=== PATIENT | female | born 1960 | race Caucasian/White ===

== ENCOUNTER 2017-05-13 16:27 | Inpatient (IN) | payer OTHER ==
[2017-05-13] VITALS (21 sets, daily range): BP systolic 89–177; BP diastolic 57–103
[~2017-05-13] VITALS: Ht 152.4 cm; Wt 72.6 kg
[~2017-05-13 16:27] MED LIST: ALBU0.0912 IH; BECL0.089 INH; COZ50 PO; GABA300C PO; MULT-298 PO; SPIMDI INH
[2017-05-13] MEDS ORDERED: NALOXONE 0.4 MG/ML VIAL IVP ONE (16:45)
[2017-05-13 17:13] LABS: HEMATOCRIT 37.3 % (36-48); HEMOGLOBIN 11.3 g/dL (12.0-16.0); MEAN CORPUSCULAR HEMOGLOBIN 28 pg (27-31); MEAN CORPUSCULAR HGB CONC 30 g/dL (33-37); MEAN CORPUSCULAR VOLUME 94 fL (80-94); PLATELET COUNT (AUTO) 253 K/uL (140-450); RED BLOOD CELL COUNT(AUTO) 3.98 MIL/uL (4.20-5.40); RED CELL DISTRIBUTION WIDTH 13.9 % (11.6-13.7); WHITE BLOOD COUNT (AUTO) 17.3 K/uL (4.8-10.8)
--- NOTE | 2017-05-13 17:23 | NUR ---
PATIENT CHRISTIANO GUZMANE TO SOB /ALOC;PT IS FROM HOME. POX 81% FIELD 100%NRB POX TO 100%.NON RESPONSIVE ON THE WAY TO [facility] PER COST ACCOUNTING ANALYST.HOME OXYGEN. HX OF EMPHYSEMA.MEDS. METHADONE. ERMD AT BEDSIDE .NO N/V/D; SKIN IS PINK/WARM/DRY;PATIENT POSITIONED FOR COMFORT; HOB ELEVATED; BEDRAILS UP X2; BED DOWN.ALL MONITORS IN PLACED; ER MD MADE AWARE OF PT STATUS.
--- NOTE | 2017-05-13 17:24 | NUR ---
PT O2 SAT DROPS TO 65% ON A NON REBREATHER MASK;BP OF 165/102/;HR 145;DR CHRISTENSEN AT BEDSIDE;
[2017-05-13 17:26] LABS: CREATININE 0.6 mg/dL (0.6-1.3); POTASSIUM 4.6 mmol/L (3.5-5.1)
[2017-05-13 17:29] LABS: ANION GAP 0.8 (8-16)
[2017-05-13 17:32] LABS: ALBUMIN 3.1 g/dL (3.4-5.0); TOTAL BILIRUBIN 0.3 mg/dL (0.0-1.0)
[2017-05-13] MEDS ORDERED: ETOMIDATE 20 MG/10 ML VIAL IVP ONE (17:32)
[2017-05-13] MEDS ORDERED: ROCURONIUM 50 MG/5 ML VIAL IV ONE (17:32)
[2017-05-13] MEDS ORDERED: INTUBATION KIT MC ONE (17:32)
[2017-05-13 17:33] LABS: LIPASE 85 U/L (73-393)
[2017-05-13 17:35] LABS: ACETAMINOPHEN < 0.5 ug/ml (10-30); SALICYLATE < 2.8 mg/dL (2.8-20.0)
[2017-05-13] MEDS ORDERED: methylPREDNISolone SS 125 MG/2 ML VIAL IVP ONE (17:40)
[2017-05-13] MEDS ORDERED: VANCOMYCIN 1GM/DEXT 5% PREMIX 200 ML IV ONE (17:40)
[2017-05-13] MEDS ORDERED: CEFEPIME 2,000 MG in DEXTROSE 5% 100 ML IV ONE (17:40)
[2017-05-13] MEDS ORDERED: VANCOMYCIN PER PHARMACY MC PRN (17:40)
[2017-05-13] MEDS ORDERED: LEVOFLOXACIN 750 MG/D5W PREMIX 150 ML IV ONE (17:40)
[2017-05-13 17:41] LABS: LYMPHOCYTES % (MANUAL) 7 % (20-46); MONOCYTES % (MANUAL) 6 % (5-12)
[2017-05-13] MEDS ORDERED: IPRATROPIUM 0.02% 0.5 MG/2.5 ML NEBU INH ONE ×2 (17:50→18:07)
[2017-05-13] MEDS ORDERED: ALBUTEROL 0.083% 2.5 MG/3 ML NEBU INH ONE ×2 (17:50→18:07)
[2017-05-13 17:56] LABS: CARBON DIOXIDE 57.6 mmol/L (21-32)
--- NOTE | 2017-05-13 17:56 | NUR ---
Rhea fuentes in EDM - 05/16/17 at 0854 by [facility] PT O2 SAT DROPS TO 65% ON A NON REBREATHER MASK;BP OF 165/102/;HR 145;DR CHRISTENSEN AT BEDSIDE;
[2017-05-13] MEDS ORDERED: PROPOFOL 200 MG/20 ML VIAL IV ONE (18:00)
[2017-05-13] MEDS ORDERED: CEFEPIME 2,000 MG VIAL IV ONE (18:00)
--- NOTE | 2017-05-13 18:00 | NUR ---
20 MG ETOMIDATE WAS GIVEN AT 1732 RT H;100 MG ROCORONIUM WAS GIVEN AT 1732 AT RT H;INTUBATION STARTED AT [address] CHRISTENSEN;RT AT BEDSIDE;7.5 TUBE WAS INSERTED AT 23 CM LIP;
--- NOTE | 2017-05-13 18:00 | NUR ---
Rhea fuentes in ED - 05/16/17 at 0853 by [facility] 20 MG ATOMIDATE WAS GIVEN AT 1732 RT H;100 MG ROCONIUM WAS GIVEN AT 1732 AT RT H;INTUBATION STARTED AT [address] CHRISTENSEN;RT AT BEDSIDE;7.5 TUBE WAS INSERTED AT 23 CM LIP;
--- NOTE | 2017-05-13 18:29 | NUR ---
ABG RESULTS GIVEN TO . NEW ORDERS TO INCREASE RATE TO 18.
--- NOTE | 2017-05-13 18:32 | NUR ---
FIO2 TITRATED TO 30%. DR. CHRISTENSEN AWARE OF CHANGES MADE TO VENT PER ABG RESULTS.
[2017-05-13] MEDS ORDERED: PROPOFOL 1000 MG/100 ML PREMIX 100 ML IV ONE (18:41)
[2017-05-13] MEDS ORDERED: ONDANSETRON 4 MG/2 ML VIAL IVP PRN (19:00)
[2017-05-13] MEDS ORDERED: LORazepam 2 MG/ML VIAL IVP PRN (19:00)
[2017-05-13] MEDS ORDERED: ACETAMINOPHEN 325 MG TAB PO PRN (19:00)
--- NOTE | 2017-05-13 19:02 | NUR ---
MANN CATHETER INSERTED BY CHARGE NURSE USING ASEPTIC TECHNIQUE.
[2017-05-13] MEDS ORDERED: cloNIDine 0.1 MG TAB PO PRN (19:10)
--- NOTE | 2017-05-13 19:23 | NUR ---
Patient will be admitted to care of DR WOOD. Admited to ICU. Will go to room 5. Belongings list completed. Report to RAYMOND GRIFFIN.
[2017-05-13] MEDS ORDERED: METH-1625 PO (19:30)
[2017-05-13] MEDS: PROPOFOL 1000 MG/100 ML PREMIX 100 ML IV SCH ×2 (19:32→23:52)
[2017-05-13] MEDS ORDERED: NACL 0.9% 2,500 ML IV ONE (19:50)
--- NOTE | 2017-05-13 19:56 | NUR ---
Pt transferred to ICU via [place] on cardiac monitoring accompanied by RN Kasia, RN Ajay, RN Murray, EMT Roberta RT.
[2017-05-13] MEDS: NACL 0.9% 1,000 ML IV SCH (20:00)
--- NOTE | 2017-05-13 20:00 | NUR ---
RECEIVED PT FROM ER VIA GURNEY, PT IS SEDATED, RASS -2, TRYING TO PULL OUT THE TUBE. TRACH TO VENT WITH FIO2 45, RR 18, TV 450, PEEP 5, WHEEZING LUNG SOUNDS, ST ON CHEF'S ASSISTANT. SOFT ABDOMEN WITH ACTIVE BOWEL SOUNDS, NGT TO LEFT NARES, POSITIVE PLACEMENT WITH [address]UALS. MANN CATHETER IN PLACE WITH CLEAR YELLOW URINE, ABLE TO MOVE ALL EXTREMITIES, GENERALIZED WEAKNESS NOTED. PERIPHERAL LINE TO RIGHT AC, 20GA, AND LEFT HAND, 22GA, WITH GOOD BLOOD RETURN, SKIN IS WARM AND DRY TO TOUCH, BLE SCAB NOTED. VSS, FLACC 6, SAFETY PRECAUTION IN PLACE, HOB ELEVATED TO 30 DEGREES, SCD PLACED ON BLE, WILL CONTINUE TO MONITOR.
[2017-05-13 20:23] LABS: APPEARANCE,URINE CLEAR (CLEAR); BILIRUBIN,URINE NEGATIVE (NEGATIVE); BLOOD, URINE 2+ (NEGATIVE); LEUKOCYTE ESTERASE ,URINE NEGATIVE (NEGATIVE); NITRITE, URINE NEGATIVE (NEGATIVE); UGLUCOSE NEGATIVE (NEGATIVE)
[2017-05-13 20:24] LABS: COLOR,URINE STRAW (YELLOW)
[2017-05-13 20:29] LABS: RBC,URINE 20-50 /HPF (0-5); WBC,URINE 0-5 (RARE) /HPF (0-5)
[2017-05-13 20:30] LABS: BARBITURATE, URINE NEG. ng/ml (NEG <=200); BENZODIAZEPINE, URINE NEG. ng/mL (NEG <=200); CANNABINOID, URINE NEG. ng/mL (NEG <=50); COCAINE, URINE NEG. ng/mL (NEG <=300); OPIATE, URINE POS. ng/mL (NEG <=2000); PHENCYCLIDINE SCREEN,URINE NEG. ng/mL (NEG <=25)
[2017-05-13] MEDS: ALBUTEROL SULFATE/IPRATROPIU 3 ML SOL IH SCH ×2 (20:40→23:51)
[2017-05-13] MEDS: HYDROmorphone 1 MG/ML AMP IVP PRN (21:01)
--- NOTE | 2017-05-13 21:45 | NUR ---
PHARMACY CALLED REGARDING NO IV ATIVAN MEDICATION AVAILABLE AT THIS TIME, NEED TO CHANGE ORDER. DR. WOOD PAGED, WAITING FOR CALL BACK.
--- NOTE | 2017-05-13 22:00 | NUR ---
PT IS STILL SEDATED, RASS -4, NO S/S OF DISTRESS, VSS, POSITION CHANGED FOR OFF LOAD PRESSURE.
--- NOTE | 2017-05-13 23:40 | NUR ---
PAGED DR. WOOD AGAIN REGARDING ORDERS, WAITING FOR CALLING BACK.
[2017-05-14] VITALS (103 sets, daily range): BP systolic 56–156; BP diastolic 53–98
--- NOTE | 2017-05-14 | NUR ---
NO CHANGE OF CONDITION AT THIS TIME, VSS. POSITION CHANGED FOR OFF LOAD PRESSURE.
--- NOTE | 2017-05-14 02:00 | NUR ---
NO S/S OF DISTRESS, VSS, STILL SEDATED, RASS -4. POSITION CHANGED FOR OFF LOAD PRESSURE.
[2017-05-14] MEDS: ALBUTEROL SULFATE/IPRATROPIU 3 ML SOL IH SCH ×5 (03:28→20:06)
[2017-05-14] MEDS: PROPOFOL 1000 MG/100 ML PREMIX 100 ML IV SCH ×6 (04:14→22:16)
--- NOTE | 2017-05-14 04:15 | NUR ---
PT IS SEDATED, RASS -4, PREPARING PT TO CT, PT STARTED AGITATED, TRYING TO PULL OUT THE TUBE, NOT ABLE TO DO CT SCAN AT THIS TIME, WILL ENDORSE TO MORNING SHIFT TO TAKE PT TO CT WHEN PT IS MORE STABLE.
--- NOTE | 2017-05-14 05:00 | NUR ---
PT IS MORE STABLE, RASS -4, VSS, TRANSFERRED TO CT. WITH RN AND RT AT BEDSIDE.
[2017-05-14 05:08] LABS: BASOPHILS % (AUTO) 0.3 % (0.0-2.0); EOSINOPHILS % (AUTO) 0.1 % (0.0-4.0); HEMATOCRIT 31.2 % (36-48); HEMOGLOBIN 9.5 g/dL (12.0-16.0); LYMPHOCYTES # (AUTO) 0.4 K/uL (2.5-16.5); LYMPHOCYTES % (AUTO) 3.8 % (20.5-51.1); MEAN CORPUSCULAR HEMOGLOBIN 28 pg (27-31); MEAN CORPUSCULAR HGB CONC 31 g/dL (33-37); MEAN CORPUSCULAR VOLUME 93 fL (80-94); MONOCYTES # (AUTO) 0.4 K/uL (0.8-1.0); MONOCYTES % (AUTO) 3.9 % (1.7-9.3); NEUTROPHILS # (AUTO) 9.7 K/uL (1.8-7.7); PLATELET COUNT (AUTO) 201 K/uL (140-450); RED BLOOD CELL COUNT(AUTO) 3.36 MIL/uL (4.20-5.40); RED CELL DISTRIBUTION WIDTH 13.4 % (11.6-13.7); WHITE BLOOD COUNT (AUTO) 10.5 K/uL (4.8-10.8)
[2017-05-14 05:24] LABS: CREATININE 0.6 mg/dL (0.6-1.3); POTASSIUM 3.4 mmol/L (3.5-5.1)
[2017-05-14 05:35] LABS: NEUTROPHILS % (AUTO) 91.9 % (42.2-75.2)
--- NOTE | 2017-05-14 05:45 | NUR ---
PT IS BACK UNIT FROM CT.
[2017-05-14 05:53] LABS: ANION GAP -1.3 (8-16)
[2017-05-14 05:54] LABS: CARBON DIOXIDE 49.7 mmol/L (21-32)
--- NOTE | 2017-05-14 06:00 | NUR ---
AM CARE AND F/C CARE PROVIDED, ORAL CARE PROVIDED, POSITION CHANGED FOR OFF LOAD PRESSURE, VSS.
--- NOTE | 2017-05-14 07:08 | NUR ---
RCV'D PT ON MECHANICAL VENTILATION. PT IS INTUBATED WITH 7.5 ETT AT 24 CM AT LIP. VENT SETTINGS ARE AC18,450,40%,+5. TUBE IS MIDLINE AND SECURED. VENT IS CONNECTED TO RED OUTLET ALARMS ARE AUDIBLE AND WORKING PROPERLY. AMBU BAG AT BEDSIDE. HHN TX OF DUONEB IS GIVEN. NO DISTRESS NOTED. WILL CONTINUE TO MONITOR.
--- NOTE | 2017-05-14 07:15 | NUR ---
REPORT GIVEN TO ADRIA RN AT BEDSIDE FOR CONTINUE OF CARE, PT IS IN STABLE CONDITION AT THIS TIME.
--- NOTE | 2017-05-14 07:18 | NUR ---
RECEIVED A REPORT FROM GABY RIVAS. PT CLOSED EYES, UNRESPONSIVE TO VOICE. SEDATED WITH PROPOFOL DRIP ORDERED PER PROTOCOL. ETT TO VENT AND SETTING AT FiO2 40, TV 450 , RR 18, PEEP 5. ST ON THE MONITOR. FLACC 0 AND NO S/SX OF ACUTE RESPIRATORY DISTRESS NOTED. SKIN WARM TO TOUCH AND DRY WITH DRY SCABS TO BILATERAL LOWER EXTREMITY. NGT IN PLACE WITH NUTREN PULMONARY FEEDING @ 30ML/HR. MANN CATHETER DRAINING CLEAR LISA URINE. PERIPHERAL IV LINE ON RT AC #20G AND LT HAND 22G, PATENT AND INTACT. SAFETY PRECAUTION, BED IN LOW POSITION, CALL LIGHT WITHIN REACH. WILL CONTINUE TO MONITOR. RT AT BEDSIDE.
--- NOTE | 2017-05-14 07:20 | NUR ---
PINO, SISTER OF THE PT CALLED AND GIVEN AN UPDATED OF PT'S CONDITION. PER PINO, SHE IS NOT SURE IF PT'S FLU SHOT IS UP TO DATE AND WILL FOLLOW UP WITH HER PCP ON NEXT TUESDAY.AND FOR NOW HOLD ON TO GIVE IT.
--- NOTE | 2017-05-14 07:43 | NUR ---
PAGED DR. MAR REGARDING CLARIFICATION OF ADMISSION ORDERS AND WAITING FOR CALLBACK.
--- NOTE | 2017-05-14 07:48 | NUR ---
DR. MAR CALLED BACK AND WILL FOLLOW UP ON ORDERS.
--- NOTE | 2017-05-14 08:00 | NUR ---
AGATHA, ROOMMATE AT BEDSIDE AND TAKEN ALL BELONGINGS TO HOME.
--- NOTE | 2017-05-14 08:10 | NUR ---
ABG DONE WITH NO INCIDENT. PAGED DR BROWN FOR CRITICAL VALUES. SPOKE WITH WILL CALL ORDER CLERK CRISTIANA. WAITING FOR CALL BACK.
--- NOTE | 2017-05-14 08:34 | NUR ---
GOT CALL BACK FROM DR BROWN AND GAVE ABG RESULTS. NO CHANGE OF ORDERS.
--- NOTE | 2017-05-14 08:34 | NUR ---
NOTIFIED DR. MAR OF LOW POTASSIUM: 3.4, NEW ORDERS RECEIVED.
[2017-05-14] MEDS ORDERED: POTASSIUM CHLORIDE 20% 40 MEQ/15 ML UDC NG SCH (08:35)
[2017-05-14] MEDS: PANTOPRAZOLE 40 MG INJ VIAL IVP SCH (08:57)
[2017-05-14] MEDS: LEVOFLOXACIN 500 MG/D5W PREMIX 100 ML IV SCH (08:58)
[2017-05-14] MEDS ORDERED: LOSARTAN 50 MG TAB PO SCH (09:00)
--- NOTE | 2017-05-14 09:00 | NUR ---
DURING INITIAL SHIFT SKIN ASSESSMENT, PT NOTED WITH DRY OPEN SKIN TEAR TO LT UPPER ARM. PICTURE TAKEN AND APPLIED DRY DRESSING. WILL CONTINUE TO MONITOR.
--- NOTE | 2017-05-14 09:38 | NUR ---
PATIENT HAS BEEN SCREENED AND CATEGORIZED HIGH NUTRITION RISK. PATIENT WILL BE SEEN WITHIN 1-2 DAYS OF ADMISSION. 05/14/17-05/15/[address]
--- NOTE | 2017-05-14 09:40 | NUR ---
PT TOLERATED MEDICATIONS WELL. TEMP 99.0 AND APPLIED COOLING MEASURES.
--- NOTE | 2017-05-14 10:20 | NUR ---
TEMP 97.6 NOTED AND VITAL SIGN STABLE. FLACC 0. WILL CONTINUE TO MONITOR
--- NOTE | 2017-05-14 10:40 | NUR ---
PT IS AWAKE AND ATTEMPTING TO PULL OUT ETT. TITRATED PROPOFOL TO 75MCG/MIN PROTOCOL AND VERSED IV GIVEN PRN ORDERED. APPLIED BILATERAL MITTENS AT THIS TIME. WILL CONTINUE TO MONITOR CLOSELY.
--- NOTE | 2017-05-14 10:58 | NUR ---
DR. MAR IN TO SEE PT AND WILL FOLLOW UP ON ORDERS.
[2017-05-14] MEDS ORDERED: ENOXAPARIN 30 MG/0.3 ML SYR SUBQ SCH (11:05)
[2017-05-14] MEDS ORDERED: clonazePAM 0.5 MG TAB NG SCH (11:10)
[2017-05-14] MEDS ORDERED: METHADONE 10 MG TAB NG SCH (11:15)
--- NOTE | 2017-05-14 11:17 | NUR ---
CONTINUE ON RASS SCALE -[address] MAR, KLONOPIN 1MG GIVEN VIA NGT ORDERED FOR AGITATION AND CONTINUE SAME RATE OF PROPOFOL 80MCG/MIN AT THIS TIME. WILL CONTINUE TO MONITOR CLOSELY.
--- NOTE | 2017-05-14 11:35 | NUR ---
HOLD FEEDING FOR ULTRASOUND OF LIVER TODAY. WILL CONTINUE TO MONITOR.
--- NOTE | 2017-05-14 11:39 | NUR ---
INFORMED BY PHARMACY THAT WE NEED CONFIRMATION AT PT'S CLINIC THAT SHE WAS TAKING METHADONE PRIOR TO ADMISSION. CALLED PT'S SISTER, PINO, FOR INFORMATION. NO ANSWER, LEFT MESSAGE. WILL FOLLOW UP.
[2017-05-14] MEDS: VANCOMYCIN 1GM/DEXT 5% PREMIX 200 ML IV SCH (11:47)
--- NOTE | 2017-05-14 12:22 | NUR ---
PINO, SISTER OF THE PT AT BEDSIDE AND GIVEN AN UPDATE OF PT'S CONDITION. PER SISTER, PT HAS BEEN TAKING METHADONE 75MG FOR 27YEARS DAILY AND WILL FOLLOW UP WITH CLINIC INFORMATION AND LET US KNOW.
--- NOTE | 2017-05-14 12:35 | NUR ---
OBTAINED THE CLINIC INFORMATION FROM PINO, SISTER OF THE PT. [facility] [phone]. CALLED THE CLINIC AND XRAY TECH STATED THAT THEY ARE OPEN FROM TUESDAY TILL TUESDAY AND UNABLE TO ACCESS THE PT'S INFORMATION AT THIS TIME. PAGED DR. MAR AND WAITING FOR CALLBACK.
--- NOTE | 2017-05-14 13:02 | NUR ---
RECEIVED CALLBACK FROM DR. MAR. NOTIFIED HIM THAT WE ARE UNABLE TO OBTAIN METHADONE VERIFICATION FROM THE PT'S CLINIC AT THIS TIME.
--- NOTE | 2017-05-14 13:27 | NUR ---
02/12/17 RD INITIAL ASSESSMENT COMPLETED PLEASE REFER TO NUTRITION ASSESSMENT UNDER CARE ACTIVITY FOR ESTIMATED NUTRITIONAL NEEDS. RD RECOMMENDATIONS: 1. RECOMMEND INCREASING NUTREN PULMONARY TO GOAL RATE OF 45 ML/HR WITH 150 ML OF FREE WATER FLUSH Q6H. -ADEQUATE TO MEET ~91% OF ESTIMATED KCAL NEEDS AND ~96% OF ESTIMATED PROTEIN NEEDS. -NOTE PT IS ALSO ON PROPOFOL (CURRENT RATE OF 27.89 X 24 HOURS X 1.1 KCAL = ~734 KCAL/DAY-RD WILL MONITOR AND RECOMMEND TF APPROPRIATELY) 2. CONSIDER ORDERING AND MONITORING LABS FOR LIPASE, AMYLASE, AND LIPID PANELS D/T PT ON PROPOFOL AT HIGH RATE. 3. RD WILL F/U 2-3 DAYS; HIGH RISK. KASHIF RASMUSSEN, RD
[2017-05-14] MEDS: MIDAZOLAM 2 MG/2 ML VIAL IV PRN ×2 (14:24→14:45)
--- NOTE | 2017-05-14 14:24 | NUR ---
RASS -3 AND VERSED GIVEN PRN ORDERED. WILL CONTINUE TO MONITOR CLOSELY. SISTER OF THE PT IS AT BEDSIDE.
--- NOTE | 2017-05-14 14:32 | NUR ---
ARCADIO, DAUGHTER OF THE PT AT BEDSIDE AND GIVEN AN UPDATE OF PT'S CONDITION.
--- NOTE | 2017-05-14 14:40 | NUR ---
LATE ENTRY OF ADMINISTRATION OF VERSED IVP GIVEN AT 1040.
--- NOTE | 2017-05-14 15:32 | NUR ---
PT CALM AND STABLE. NO CHANGE OF PROPOFOL RATE AND RASS -4. FLACC 0 AND NO S/SX OF ACUTE RESPIRATORY DISTRESS NOTED. WILL CONTINUE TO MONITOR.
[2017-05-14] MEDS: NACL 0.9% 1,000 ML IV SCH (17:41)
--- NOTE | 2017-05-14 17:44 | NUR ---
PT SEDATED AND RASS -4 NOTED. VITAL SIGN STABLE AND FLACC 0. CONTINUE ON HOLD FEEDING FOR ULTRASOUND OF LIVER AND NO S/SX OF DEHYDRATION AT THIS TIME. WILL CONTINUE TO MONITOR.
--- NOTE | 2017-05-14 17:51 | NUR ---
PAGED DR. MAR REGARDING RD RECOMMENDATION AND WAITING FOR CALLBACK.
--- NOTE | 2017-05-14 17:54 | NUR ---
RECEIVED CALLBACK FROM DR. MAR AND OBTAINED THE ORDERS FOR RD RECOMMENDATION. WILL FOLLOW UP ON ORDERS.
--- NOTE | 2017-05-14 18:30 | NUR ---
STILL WAITING FOR FACTORY MANAGER FOR ULTRASOUND OF LIVER AND CALLED RADIOLOGY DEPT TO FOLLOW UP. THEY AWARE OF IT.
--- NOTE | 2017-05-14 18:50 | NUR ---
FAIRING WORKER AT BEDSIDE FOR ULTRASOUND OF LIVER.
--- NOTE | 2017-05-14 19:15 | NUR ---
REPORT GIVEN AND ENDORSED CARE TO GABY WARNER. PT STABLE
--- NOTE | 2017-05-14 19:20 | NUR ---
RECEIVED PT FROM ADRIA RN AM SHIFT, PT IS SEDATED WITH RASS -4. PT IS INTUBATED. ETT TO VENT. ETT SIZE NO 7.5. VENT SETTING AC 18,TV 450,FIO2 40 AND PEEP 5. BILATERAL LUNGS SOUND CLEAR. SINUS TACHY ON THE MONITOR. CONT ON MONITORING. IV SITE RIGHT AC NO 20 GAUGE WITH PROPOFOL RUNNING AT 80 MCG/MIN AND IV TO RIGHT HAND NO 22 GAUGE WITH IVF NS AT 50 CC/HR. BOTH IV SITE INTACT WELL. NO S/S OF INFECTION NOTED. NTG TO LEFT NARES,NO RESIDUAL NOTED, PLACEMENT CONFIRM. NGT TO TUBE FEEDING NUTREN PULMONARY AT 45 CC/HR AND H2O AT 120 CC Q 6 HRS. HOB UP 30 -45 DEGREE.POSITIVE BOWEL SOUNDS TO ALL QUADRANTS.ABD SOFT NON DISTENDED. SKIN NON INTACT WITH SKIN TEAR TO LEFT UPPER ARM COVER WITH DRY CLEAN DRESSING AND DRY SCABS TO BLE. NO EDEMA NOTED. F/C IN PLACE WITH YELLOW CLEAR URINE DRAIN BY GRAVITY. SCD IN PLACE. KEPT CLEAN AND DRY.
--- NOTE | 2017-05-14 19:40 | NUR ---
LIVE ULTRA SOUND DONE RESULT STILL PENDING
--- NOTE | 2017-05-14 20:15 | NUR ---
RECEIVED PT IN THE SAME VENT SETTINGS, SX SMALL CLEAR, BS ARE BILT CLEAR,NO DISTRESS
[2017-05-14] MEDS: clonazePAM 0.5 MG TAB NG SCH (20:20)
[2017-05-14] MEDS: RIFAXIMIN 550 MG TAB PO SCH (20:20)
[2017-05-14] MEDS: LACTULOSE 20 GM/30 ML UDC PO SCH (20:21)
--- NOTE | 2017-05-14 20:26 | NUR ---
DR. SWANN INFORMED ABOUT ULTRASOUND LIVER RESULTS: HEPATOMEGALY AND FATTY INFILTRATED LIVER, SMALL GALLBLADDER SLUDGE, SMALL RIGHT RENAL CYST. ORDERED LFT IN AM. MACHO/RESPIRATORY THERAPIST SPOKE WITH DR. MAR REGARDING PATIENT'S BREATHING TREATMENT ORDER, MD ORDERED CHANGE DUONEB IH TO Q6H.
--- NOTE | 2017-05-14 20:40 | NUR ---
NIGHT MEDICATION GIVEN VIA NGT TOLERATED WELL.NO RESIDUAL NOTED.HOB UP 30 DEGREE.KEPT CLEAN AND DRY.
--- NOTE | 2017-05-14 21:15 | NUR ---
DECREASE PROPOFOL AT 75 MCG/KG/MIN TOLERATED WELL RASS -4.
--- NOTE | 2017-05-14 22:00 | NUR ---
DECREASE PROPOFOL TO 70 MCG/KG/MIN TOLERATED WELL TO KEPT RASS-4.
--- NOTE | 2017-05-14 23:30 | NUR ---
PROPOFOL DECREASE TO 65MCG/KG/MIN TO KEPT RASS-4 TOLERAED WELL AT THIS TIME.CONTINUE TO MONITOR CLOSELY.
[2017-05-15] VITALS (96 sets, daily range): BP systolic 69–116; BP diastolic 46–74
--- NOTE | 2017-05-15 00:17 | NUR ---
VAP ORAL CARE GIVEN. REPOSITION PT FOR COMFORT. HOB UP 30 DEGREE.KEPT CLEAN AND DRY.
--- NOTE | 2017-05-15 00:40 | NUR ---
PROPOFOL DECREASE TO 60 MCG/KG/HR TO KEEP RASS-4.
--- NOTE | 2017-05-15 02:00 | NUR ---
PROPOFOL DECREASE TO 55 MCG/KG/HR TOLERATED WELL TO KEEP RASS-4.
[2017-05-15] MEDS: PROPOFOL 1000 MG/100 ML PREMIX 100 ML IV SCH ×2 (02:39→08:00)
--- NOTE | 2017-05-15 03:55 | NUR ---
PT MONITOR ON THE SAME VENT SETTINGS, NO CHANGES MADE, PT STABLE AT THIS TIME
--- NOTE | 2017-05-15 05:00 | NUR ---
AM CARE,VAP ORAL CARE AND F/C CARE GIVEN TOLERATED WELL.
--- NOTE | 2017-05-15 06:09 | NUR ---
IV SITE ON RIGHT ANTECUBITAL AREA INFILTRATED, STARTED NEW IV SITE ON RIGHT LFA G#22.
[2017-05-15 06:12] LABS: CREATININE 0.7 mg/dL (0.6-1.3)
[2017-05-15 06:15] LABS: ALBUMIN 2.3 g/dL (3.4-5.0); BILIRUBIN,DIRECT 0.1 mg/dL (0.0-0.3); TOTAL BILIRUBIN 0.3 mg/dL (0.0-1.0)
[2017-05-15 06:18] LABS: BASOPHILS # (AUTO) 0.5 K/uL (0.00-0.22); EOSINOPHILS # (AUTO) 0.1 K/uL (0-0.4); EOSINOPHILS % (AUTO) 0.6 % (0.0-4.0); HEMATOCRIT 33.2 % (36-48); HEMOGLOBIN 10.6 g/dL (12.0-16.0); LYMPHOCYTES # (AUTO) 1.2 K/uL (2.5-16.5); LYMPHOCYTES % (AUTO) 10.1 % (20.5-51.1); MEAN CORPUSCULAR HEMOGLOBIN 30 pg (27-31); MEAN CORPUSCULAR HGB CONC 32 g/dL (33-37); MEAN CORPUSCULAR VOLUME 93 fL (80-94); MONOCYTES % (AUTO) 8.1 % (1.7-9.3); NEUTROPHILS # (AUTO) 9.4 K/uL (1.8-7.7); NEUTROPHILS % (AUTO) 77.2 % (42.2-75.2); PLATELET COUNT (AUTO) 204 K/uL (140-450); RED BLOOD CELL COUNT(AUTO) 3.58 MIL/uL (4.20-5.40); RED CELL DISTRIBUTION WIDTH 14.4 % (11.6-13.7); WHITE BLOOD COUNT (AUTO) 12.2 K/uL (4.8-10.8)
[2017-05-15 06:23] LABS: ANION GAP 1.4 (8-16)
[2017-05-15 06:24] LABS: CARBON DIOXIDE 44.6 mmol/L (21-32)
--- NOTE | 2017-05-15 06:30 | NUR ---
PROPOFOL DECREASE PER PROTOCOL D/T BP IS LOW.
--- NOTE | 2017-05-15 07:15 | NUR ---
REPORT GIVEN TO AM SHIFT. PT STILL ON PROPOFOL DRIPS ORDER. PROPOFOL WAS DECREASE D/T BP IS LOW.NO RESP DISTRESS.NO SOB. CONT TO MONITOR.
--- NOTE | 2017-05-15 07:30 | NUR ---
RECEIVED REPORT FROM NIGHT NURSE. PT IS SEDATED, RASS -4 AT THIS TIME. FLACC 0. NORMAL SINUS RHYTHM ON MONITOR. PT IS ETT TO VENT: AV 18, FIO2 40%, TV 450, PEEP 5. BILATERAL LUNGS CLEAR UPON AUSCULTATION. PERIPHERAL IV SITE TO RIGHT FOREARM PATENT AND INTACT, RUNNING PROPOFOL AT 40 MCG/MIN AND ANOTHER PERIPHERAL IV TO RIGHT HAND, RUNNING ORDERED IV FLUID. NG TUBE TO LEFT NOSTRIL IN PLACE, RECEIVING TUBE FEEDING OF NUTREN PULMONARY AT 45 ML/HR, NO RESIDUALS NOTED. ABDOMEN SOFT, NONTENDER, BOWEL SOUNDS PRESENT. MANN CATH IN PLACE, DRAINING URINE TO GRAVITY DRAINAGE BAG. SCDS IN PLACE FOR VTE PROPHYLAXIS. HOB AT 30 DEGREES. BED IN LOW POSITION. WILL CONTINUE TO MONITOR.
[2017-05-15 08:04] LABS: CHOL/HDL RATIO 3.8 (1-4.5)
[2017-05-15] MEDS: LACTULOSE 20 GM/30 ML UDC PO SCH ×2 (08:23→20:34)
[2017-05-15] MEDS: PANTOPRAZOLE 40 MG INJ VIAL IVP SCH (08:23)
[2017-05-15] MEDS: clonazePAM 0.5 MG TAB NG SCH (08:25)
[2017-05-15] MEDS: ENOXAPARIN 30 MG/0.3 ML SYR SUBQ SCH (08:25)
[2017-05-15] MEDS: RIFAXIMIN 550 MG TAB PO SCH ×2 (08:25→20:34)
[2017-05-15] MEDS: LEVOFLOXACIN 500 MG/D5W PREMIX 100 ML IV SCH (08:26)
[2017-05-15] MEDS: ALBUTEROL SULFATE/IPRATROPIU 3 ML SOL IH SCH ×3 (08:26→19:28)
[2017-05-15] MEDS: BUDESONIDE 0.5 MG/2 ML NEBU INH SCH ×2 (08:26→19:28)
--- NOTE | 2017-05-15 08:27 | NUR ---
RECEIVED ON A GE [employer] R860 VENTILAOTR PLUGGED INTO RED OUTLET TOLERATING WELL WITHOUT ADVERSE REACTIONS NOTED TO A PORTEX ENDOTRACHEAL TUBE #7.5 SECURED AT 24cm WITH AN ANCHOR FAST CUFF PRESSURE CHECKED NOTED AMBU BAG AT [facility] LOC SEDATED BREATH SOUND RALES BILATERAL WITH GOOD CHEST RISE ENDOTRACHEAL SUCTION FOR MODERATE THIN YELLOW SECRETIONS AIRWAY PATENT
--- NOTE | 2017-05-15 09:00 | NUR ---
MEDICATIONS ADMINISTERED. PT TOLERATED WELL. HELD COZAAR FOR LOW BP.
--- NOTE | 2017-05-15 09:17 | NUR ---
DR. SWANN CAME TO SEE PT. WILL FOLLOW UP ON ORDERS.
--- NOTE | 2017-05-15 09:25 | NUR ---
PLANT TECHNICIAN/CONTROL ROOM OPERATOR CALLED TO BEDSIDE FOR VENTILATOR ALARMS PRESENTING WITH DECREASED VE MVE APNEA PATIENT ASSESSMENT DONE BREATH SOUNDS DECREASED BILATERAL NO EVIDENCE OF PULMONARY PLUG CALLED Terence VARGAS RCP FOR ASSIST UNABLE TO RESOLVE ALARMS REMOVED PATIENT FROM VENTILATOR AMBU BAG WITH SUPPLEMENTAL OXYGEN AT 15 LPM QUICK EST PERFORMED VENTILATOR PRESENTING WITH MULTI SYSTEM FAILURE REPLACED VENTILATOR RECONNECTED TO [employer] [facility] CLINIC[facility] R860 VENTILATOR ID# [id number]
[2017-05-15] MEDS: MIDODRINE 5 MG TAB PO SCH ×4 (09:31→23:13)
[2017-05-15] MEDS: NACL 0.9% 1,000 ML IV SCH ×3 (09:32→23:05)
--- NOTE | 2017-05-15 09:35 | NUR ---
CHECKED BP: 76/38, ADMINISTERED PROAMATINE ORDERED. PT TOLERATED WELL.
--- NOTE | 2017-05-15 09:40 | NUR ---
TOLERATING VENTILATOR SUPPORT WELL BREATH SOUNDS RHONCHI BILATERAL WITH GOOD CHEST RISE ENDOTRACHEAL SUCTION FOR MODERATE THICK YELLOW SECRETIONS AIRWAY PATENT
--- NOTE | 2017-05-15 10:35 | NUR ---
CHECKED ON PT. CURRENT BP 81/59 (MAP 68). RASS -4. NO SIGNS OF ACUTE DISTRESS NOTED AT THIS TIME. WILL CONTINUE TO MONITOR.
--- NOTE | 2017-05-15 11:04 | NUR ---
RECHECKED AND BP IS 100/67. RASS -4. NO S/SX OF ACUTE DISTRESS. WILL CONTINUE TO MONITOR.
--- NOTE | 2017-05-15 11:25 | NUR ---
SEDATED RESPONSIVE TO SUCTIONING BREATH SOUNDS RHONCHI BILATERAL GOOD CHEST RISE ENDOTRACHEAL SUCTION FOR LARGE THICK YELLOW SECRETIONS AIRWAY PATENT OROPHARYNX SUCTION FOR LARGE THICK CLEAR SECRETIONS
[2017-05-15] MEDS: VANCOMYCIN 1GM/DEXT 5% PREMIX 200 ML IV SCH (11:37)
--- NOTE | 2017-05-15 12:32 | NUR ---
REPOSITIONED AND GAVE ORAL CARE. PT TOLERATED WELL. RASS -4. VS STABLE. SAFETY MEASURES ENSURED. WILL CONTINUE TO MONITOR.
--- NOTE | 2017-05-15 13:09 | NUR ---
SEDATED RESTING WELL BREATH SOUNDS RALES BILATERAL GOOD CHEST RISE ENDOTRACHEAL SUCTION FOR SMALL THIN YELLOW SECRETIONS AIRWAY PATENT SATURATION 99% ON FIO2 OF 40% POST HHN THERAPY TITRATED FIO2 TO 35% MIMIANA/RN NOTIFIED
--- NOTE | 2017-05-15 14:20 | NUR ---
DR. MAR MADE AWARE THAT PT IS STILL SEDATED, RASS -4, DESPITE PROPOFOL BEING DECREASED TO 5 MCG/KG/MIN. RECEIVED NEW ORDERS.
--- NOTE | 2017-05-15 15:34 | NUR ---
SEDATED RESTING WELL NO APPARENT RESPIRATORY DISTRESS NOTED BREATH SOUNDS RHONCHI BILATERAL WITH GOOD CHEST RISE ENDOTRACHEAL SUCTION FOR MODERATE THICK YELLOW SECRETIONS AIRWAY PATENT
--- NOTE | 2017-05-15 16:23 | NUR ---
PT'S SISTER, PINO, CALLED AND WAS UPDATED ON PT.
--- NOTE | 2017-05-15 17:03 | NUR ---
ABHILASH, PT'S ROOMMATE AT BEDSIDE AND WAS UPDATED ON PT.
[2017-05-15] MEDS: MIDAZOLAM 2 MG/2 ML VIAL IV PRN (17:36)
--- NOTE | 2017-05-15 17:40 | NUR ---
SEDATED IRRITATED BREATH SOUNDS RHONCHI BILATERAL GOOD CHEST RISE ENDOTRACHEAL SUCTION FOR MODERATE THICK YELLOW SECRETIONS AIRWAY PATENT OROPHARYNX SUCTION FOR COPIOUS THICK CLEAR SECRETIONS
--- NOTE | 2017-05-15 17:40 | NUR ---
PT STARTED TO WAKE UP AND BECOMES AGITATED. RASS +2. VERSED GIVEN ORDERED. PAGED DR. MAR. SPOKE WITH ON-CALL MD DR. WOOD. ORDER RECEIVED. VS STABLE. WILL CONTINUE TO MONITOR.
[2017-05-15] MEDS: PROPOFOL 1000 MG/100 ML PREMIX 100 ML IV PRN (17:53)
--- NOTE | 2017-05-15 18:22 | NUR ---
CHECKED ON PT. PT IS RESTING COMFORTABLY. RASS -4. VS STABLE. NO SOB OR OTHER SIGNS OF ACUTE DISTRESS NOTED. WILL CONTINUE TO MONITOR.
--- NOTE | 2017-05-15 19:20 | NUR ---
REPORT RECEIVED FROM MORNING NURSE, GABY MAGALLON. PT IS ON PROPOFOL @ 5 MCG/KG/MIN WITH RASS -4. PERRL. NGT TO LEFT NARE TO FEEDING. PATENT AND RESIDUAL NOTED 10ML. ETT TO VENT @ AC 18. FIO2 35, TV 450, PEEP 5. ON CARDIAC MONITORING WITH SR. IV TO RFA 22G, R HAND 22G. ALL PATENT AND ASYMPTOMATIC. BILATERAL LUNG SOUNDS DIMINISHED. S1 AND S2 HEARD. BOWEL SOUNDS ACTIVE FROM ALL 4 QUADS. SCD TO THE BILATERAL LOWER EXTREMITIES. SCABS NOTED TO BLE. MANN CATHETER DRAINING CLEAR YELLOW URINE VIA GRAVITY. FLACC=0. DRESSING CLEAN AND DRY TO LEFT UPPER ARM FOR SKIN TEAR. CALL LIGHT IN REACH. BED TO THE LOWEST POSITION. HOB ELEVATED TO 30 DEGREES. WILL CONTINUE TO MONITOR.
--- NOTE | 2017-05-15 19:30 | NUR ---
REPORT GIVEN TO RECREATION FACILITY ATTENDANT RN FOR CONTINUITY OF CARE. PT IS IN STABLE CONDITION.
--- NOTE | 2017-05-15 20:20 | NUR ---
NOTED RASS +1. INCREASED PROPOFOL TO 10 MCG/KG/MIN.
--- NOTE | 2017-05-15 20:30 | NUR ---
RASS -4 AT THIS TIME.
[2017-05-15] MEDS: HYDROmorphone 1 MG/ML AMP IVP PRN (20:34)
--- NOTE | 2017-05-15 22:55 | NUR ---
NOTED RASS 0. INCREASED PROPOFOL TO 15 MCG/KG/MIN.
--- NOTE | 2017-05-15 23:00 | NUR ---
RASS MET -4 AT THIS TIME.
--- NOTE | 2017-05-15 23:15 | NUR ---
RASS NOTED +1. INCREASED PROPOFOL TO 20 MCG/KG/MIN.
--- NOTE | 2017-05-15 23:30 | NUR ---
RASS SCORE MET WITH -4 AT THIS TIME.
[2017-05-16] VITALS (91 sets, daily range): BP systolic 86–140; BP diastolic 57–89
--- NOTE | 2017-05-16 01:20 | NUR ---
RASS NOTED +1. INCREASED PROPOFOL TO 25 MCG/KG/MIN.
--- NOTE | 2017-05-16 01:20 | NUR ---
RASS NOTED TO BE +1. INCREASED PROPOFOL TO 25 MCG/KG/MIN.
--- NOTE | 2017-05-16 01:30 | NUR ---
RASS SCORE MET -4 AT THIS TIME.
[2017-05-16] MEDS: ALBUTEROL SULFATE/IPRATROPIU 3 ML SOL IH SCH ×4 (01:50→19:40)
--- NOTE | 2017-05-16 04:15 | NUR ---
RASS +1. INCREASE PROPOFOL TO 30 MCG/KG/MIN.
--- NOTE | 2017-05-16 04:25 | NUR ---
RASS NOTED +2. PROPOFOL TITRATED TO 35 MCG/KG/MIN.
--- NOTE | 2017-05-16 05:00 | NUR ---
RASS +1. TITRATED PROPOFOL TO 40 MCG/KG/MIN. VS STABLE.
[2017-05-16] MEDS: MIDODRINE 5 MG TAB PO SCH ×4 (05:37→23:57)
--- NOTE | 2017-05-16 05:45 | NUR ---
RASS -2. TITRATED PROPOFOL TO 45 MCG/KG/MIN. VS STABLE.
--- NOTE | 2017-05-16 06:00 | NUR ---
RASS -2. TITRATED PROPOFOL TO 50 MCG/KG/MIN. VS STABLE.
[2017-05-16 06:53] LABS: BASOPHILS # (AUTO) 0.5 K/uL (0.00-0.22); BASOPHILS % (AUTO) 4.1 % (0.0-2.0); EOSINOPHILS # (AUTO) 0.1 K/uL (0-0.4); EOSINOPHILS % (AUTO) 1.2 % (0.0-4.0); HEMATOCRIT 32.6 % (36-48); HEMOGLOBIN 10.1 g/dL (12.0-16.0); LYMPHOCYTES # (AUTO) 1.3 K/uL (2.5-16.5); LYMPHOCYTES % (AUTO) 11.1 % (20.5-51.1); MEAN CORPUSCULAR HEMOGLOBIN 29 pg (27-31); MEAN CORPUSCULAR HGB CONC 31 g/dL (33-37); MEAN CORPUSCULAR VOLUME 93 fL (80-94); MONOCYTES # (AUTO) 0.9 K/uL (0.8-1.0); MONOCYTES % (AUTO) 8.1 % (1.7-9.3); NEUTROPHILS # (AUTO) 8.8 K/uL (1.8-7.7); NEUTROPHILS % (AUTO) 75.5 % (42.2-75.2); PLATELET COUNT (AUTO) 211 K/uL (140-450); RED BLOOD CELL COUNT(AUTO) 3.52 MIL/uL (4.20-5.40); RED CELL DISTRIBUTION WIDTH 14.3 % (11.6-13.7); WHITE BLOOD COUNT (AUTO) 11.6 K/uL (4.8-10.8)
--- NOTE | 2017-05-16 07:15 | NUR ---
REPORT GIVEN TO MORNING NURSE, GABY MAGALLON FOR CONTINUITY OF CARE. VS STABLE AND NO ACUTE DISTRESS NOTED AT THIS TIME. ALL SAFETY PRECAUTIONS ARE IN PLACE.
[2017-05-16 07:24] LABS: ANION GAP 4.5 (8-16); CARBON DIOXIDE 39.5 mmol/L (21-32); CREATININE 0.6 mg/dL (0.6-1.3); MAGNESIUM 1.6 mg/dL (1.8-2.4); PHOSPHORUS 1.7 mg/dL (2.5-4.9)
--- NOTE | 2017-05-16 07:28 | NUR ---
REPORT RECEIVED FROM NIGHT NURSE. PT IS ON PROPOFOL DRIP AT 50 MCG/KG/MIN, RASS -4 AT THIS TIME. PERRL. NORMAL SINUS RHYTHM ON MONITOR. PT IS ETT TO VENT, SETTINGS: AC 18, FIO2 40, TV 450, PEEP 5. BILATERAL RHONCHI HEARD UPON AUSCULTATION. SUCTIONED WHITE, THICK ORAL SECRETIONS. PT TOLERATED WELL. NGT TO LEFT NARE IN PLACE, PLACEMENT CONFIRMED, NO RESIDUALS. PT RECEIVING NUTREN PULMONARY TUBE FEEDING AND WATER FLUSH ORDERED. PERIPHERAL IVS TO RIGHT FOREARM G22 AND RIGHT HAND G22 PATENT AND INTACT, INFUSING PROPOFOL AND IV FLUID ORDERED. MANN CATH IN PLACE DRAINING URINE TO GRAVITY DRAINAGE BAG. DRESSING TO SKIN TEAR ON LEFT FOREARM DRY AND INTACT. SCDS IN PLACE FOR VTE PROPHYLAXIS. VS STABLE. FLACC 0. HOB 30 DEGREES. BED IN LOW POSITION AND CALL LIGHT WITHIN REACH. WILL CONTINUE TO MONITOR.
[2017-05-16] MEDS: BUDESONIDE 0.5 MG/2 ML NEBU INH SCH ×2 (08:00→19:40)
--- NOTE | 2017-05-16 08:00 | NUR ---
RECEIVED ON A [employer] R860 VENTILATOR PLUGGED INTO RED OUTLET TOLERATING WELL WITHOUT ADVERSE REACTIONS NOTED TO A PORTEX ENDOTRACHEAL TUBE #7.5 SECURED AT 24cm WITH AN ANCHOR FAST CUFF PRESSURE CHECKED NOTED AMBU BAG NOTED TA HOB LOC SEDATED BREATH SOUNDS RHONCHI BILATERAL WITH GOOD CHEST RISE ENDOTRACHEAL SUCTION FOR LARGE THICK YELLOW SECRETIONS AIRWAY PATENT
--- NOTE | 2017-05-16 08:20 | NUR ---
RECEIVED ORDER FROM ON-CALL MD, DR. GUZMAN, TO RESUME METHADONE.
[2017-05-16] MEDS: LACTULOSE 20 GM/30 ML UDC PO SCH ×2 (08:57→20:15)
[2017-05-16] MEDS: RIFAXIMIN 550 MG TAB PO SCH ×2 (08:57→20:14)
[2017-05-16] MEDS: PANTOPRAZOLE 40 MG INJ VIAL IVP SCH (08:57)
[2017-05-16] MEDS: LEVOFLOXACIN 500 MG/D5W PREMIX 100 ML IV SCH (08:58)
[2017-05-16] MEDS: ENOXAPARIN 30 MG/0.3 ML SYR SUBQ SCH (08:58)
[2017-05-16] MEDS: NACL 0.9% 1,000 ML IV SCH (09:17)
--- NOTE | 2017-05-16 09:20 | NUR ---
MEDICATIONS ADMINISTERED. PT TOLERATED WELL.
--- NOTE | 2017-05-16 09:28 | NUR ---
PT'S SISTER, PINO, CALLED AND WAS UPDATED ON PT.
--- NOTE | 2017-05-16 09:43 | NUR ---
VENT CHECK COMPLETED. NO CHANGES MADE TO VENTILATOR AT THIS TIME. PT IS NOT SOB AND NOT IN RESPIRATORY DISTRESS. ALARMS ARE ON AND FUNCTIONING. ETT IS SECURE WITH ANCHOR FAST.
[2017-05-16] MEDS ORDERED: CALCIUM CHLORIDE 10% 100 MG/ML SYR IVP ONE (09:50)
[2017-05-16] MEDS ORDERED: ACETAMINOPHEN 325 MG TAB PO PRN (10:52)
[2017-05-16] MEDS ORDERED: cloNIDine 0.1 MG TAB PO PRN (10:52)
[2017-05-16] MEDS ORDERED: ONDANSETRON 4 MG/2 ML VIAL IVP PRN (10:53)
[2017-05-16] MEDS: SODIUM PHOS / POTASSIUM PHOS 1 PKT PDR NG SCH ×4 (11:00→20:14)
[2017-05-16] MEDS ORDERED: CALCIUM CHLORIDE 10% 1,000 MG in NACL 0.9% 100 ML IV SCH (11:00)
[2017-05-16] MEDS ORDERED: CALCIUM GLUCONATE 10% 1,000 MG in NACL 0.9% 50 ML IV SCH (11:00)
--- NOTE | 2017-05-16 11:15 | NUR ---
NO CHANGE OF CONDITION AT THIS TIME. VS STABLE. NO SOB OR ACUTE DISTRESS. FLACC 0. WILL CONTINUE TO MONITOR.
--- NOTE | 2017-05-16 11:22 | NUR ---
SEDATED RESPONSIVE TO SUCTION BREATH SOUNDS RHONCHI WIT EXP WHEEZE BILATERAL GOOD CHEST RISE ENDOTRACHEAL SUCTION FOR MODERATE SEMI THICK YELLOW SECRETIONS AIRWAY PATENT SATURATION 100% ON FIO2 OF 40% TITRATED FIO2 TO 35% RATANA/RN NOTIFIED
[2017-05-16] MEDS ORDERED: MAG SULF 2000 MG/WATER PREMIX 100 ML IV SCH (12:00)
[2017-05-16] MEDS: VANCOMYCIN 1GM/DEXT 5% PREMIX 200 ML IV SCH (12:00)
--- NOTE | 2017-05-16 12:20 | NUR ---
PT'S DAUGHTER, ARCADIO AND SISTER, PINO AT BEDSIDE. WERE UPDATED ON PT.
[2017-05-16] MEDS: PROPOFOL 1000 MG/100 ML PREMIX 100 ML IV PRN ×2 (12:26→23:09)
--- NOTE | 2017-05-16 12:30 | NUR ---
PT WOKE UP. DAUGHTER AND SISTER STILL AT BEDSIDE. PT OPENS EYES, RASS +2, ORIENTED, ABLE TO FOLLOW COMMANDS AND ABLE TO COMMUNICATE BY NODDING AND SHAKING HEAD. CLARIFIED CODE STATUS WITH PT. PT WANTS CPR, FULL INTERVENTIONS AND TREATMENT IN CASE OF EMERGENCY. WITNESSED BY CHARGE NURSE, PT'S DAUGHTER AND SISTER. WILL NOTIFY DR. GUZMAN, ON-CALL FOR DR. MAR OF PT'S WISH.
[2017-05-16] MEDS ORDERED: METHADONE 10 MG TAB NG SCH (12:39)
--- NOTE | 2017-05-16 12:48 | NUR ---
PT STILL ON PROPOFOL DRIP WITH RASS +2 AT THIS TIME. VS STABLE. DAUGHTER AND SISTER AT BEDSIDE. METHADONE GIVEN ORDERED. PT TOLERATED WELL. WILL CONTINUE TO MONITOR.
[2017-05-16] MEDS ORDERED: SKINTEGRITY HYDROGEL TP PRN (13:20)
--- NOTE | 2017-05-16 13:20 | NUR ---
WOUND CARE EVALUATION NOTES: REASON FOR EVALUATION: LOW AMINAH SCALE COMPLETE SKIN ASSESSMENT DONE ON THIS 57 Y/O FEMALE PATIENT TO [facility], WITH INITIAL DIAGNOSIS OF SOB, ALOC. PAST MEDICAL HISTORY INCLUDE COPD, EMPHYSEMA, HYPERTENSION AND HEPATITIS D AND C. ALL ABOVE INFORMATION WAS OBTAINED FROM THE ADMISSION H&P. LABS ARE WBC 11.6, H/H 10.1/32.6, GLUCOSE 90, ALBUMIN 2.3, PT/INR 11.0/1.1 AND PTT 28.3. CURRENT MEDS INCLUDE VANCOMYCIN,LEVOFLOXACIN, ALBUTEROL AND PROPOFOL. SKIN WARM TO TOUCH WNL, THICKENED TOENAILS, +2 EDEMA, NO HAIR GROWTH AND BILATERAL PEDAL PULSES PRESENT AND NORMAL. PT WITH NG TF AND ORALLY INTUBATED. #16 F/C PATENT AND INTACT TO LISA COLORED URINE IN SMALL AMOUNT. NEEDS ASSISTANCE IN TURNING. ABLE TOMOVE ALL EXTREMITIES. PLAN OF CARE PRIMARY NURSE. INTEGUMENTARY: UPPER CHEST AND UPPER EXTREMITIES SKIN ARE DRY LEFT UPPER ARM SKIN TEAR 1.8X1 CM WOUND BED RED, AND DRY , NO ODOR BLE XEROSIS SKIN CONDITION WITH MULTIPLE DRY SCABS BILATERAL HEELS AND SACRALCOCCYX BLANCHABLE REDNESS RECOMMENDATIONS: -APPLY BODY LOTION TO DRY SKIN AREAS -APPLY HYDRAGUARD TO BLE DRYNESS XEROSIS AREAS Q8H -CLEANSE LEFT UPPER ARM SKIN TEAR WITH NS. PAT DRY, APPLY HYDROGEL WITH ADAPTIC DRESSING COVER WITH DRY DRESSING AND KERLIX QD AND PRN IF SOILING -TURN AND REPOSITION PATIENT Q2H -ASSESS AND MONITOR SKIN CONDITION DURING POSITION CHANGE, PLEASE PAY ATTENTION TO SACRALCOCCYX AND HEELS -OFFLOAD BILATERAL HEELS BY PLACING PILLOWS UNDER CALVES AT ALL TIMES, UNLESS OTHERWISE CONTRAINDICATED -PRESSURE REDISTRIBUTION SURFACE THERAPY -KEEP SKIN CLEAN AND DRY AT ALL TIMES. RECOMMENDATIONS DISCUSSED WITH PRIMARY RN WILL FOLLOW UP PATIENT Q 7 -10 DAYS AND PRN. PLEASE CONTACT WOUND CARE NURSE FOR ANY CONCERNS AND CHANGES IN WOUND CONDITION
--- NOTE | 2017-05-16 13:30 | NUR ---
RECEIVED A CALL BACK FROM DR. GUZMAN. RECEIVED NEW ORDERS REGARDING IV ABX. PER DR. GUZMAN, PT IS NOT READY FOR SEDATION VACATION YET. ALSO RECEIVED ORDER FOR CODE STATUS CHANGE, ACCORDING TO PT'S WISH.
[2017-05-16] MEDS ORDERED: VANCOMYCIN PER PHARMACY MC PRN (13:50)
--- NOTE | 2017-05-16 13:58 | NUR ---
SEDATED NO SOB NOTED BREATHS SOUNDS RHONCHI BILATERAL GOOD CHEST RISE ENDOTRACHEAL SUCTION FOR LARGE THICK YELLOW SECRETIONS AIRWAY PATENT
[2017-05-16] MEDS ORDERED: PROBIOTIC SCREEN 1 EA MISC MC PRN (15:15)
--- NOTE | 2017-05-16 15:46 | NUR ---
SEDATED RESTING WITHOUT ADVERSE REACTIONS NOTED BREATH SOUNDS INSP WHEEZE AND RALES BILATERAL NO SUCTIONING AT THIS TIME HEADING PINNER TO MONITOR
--- NOTE | 2017-05-16 15:57 | NUR ---
CM NOTE INITIAL REVIEW FAXED TO [facility] / FAX# [phone], C: PAT #[phone]
--- NOTE | 2017-05-16 16:14 | NUR ---
PT IS RESTING COMFORTABLY AT THIS TIME. FLACC 0. RASS -4. VS STABLE. HOB 30 DEGREES. SAFETY MEASURES ENSURED. WILL CONTINUE TO MONITOR.
--- NOTE | 2017-05-16 17:05 | NUR ---
DR. GUZMAN IN TO SEE PT. WILL FOLLOW UP ON ORDERS.
--- NOTE | 2017-05-16 17:25 | NUR ---
PROPOFOL TITRATED DOWN AND DISCONTINUED PER ORDER. WILL CONTINUE TO MONITOR.
--- NOTE | 2017-05-16 17:45 | NUR ---
PT HAD MODERATE AMOUNT OF THINK SECRETIONS. SUCTIONED AND REPOSITIONED PT. PT TOLERATED WELL. WILL CONTINUE TO MONITOR.
--- NOTE | 2017-05-16 17:53 | NUR ---
OFF PROPOFOL SEDATION NOTED BY NAUN/GABY CHANGED MODE TO CPAP/PS 12 PEEP 5 ORDER: WEAN TOLERATED AND EXTUBATE BREATH SOUNDS CLEAR BILATERAL PATIENT SUCTIONED PREVIOUS BY NAUN/GABY
--- NOTE | 2017-05-16 17:55 | NUR ---
PT IS ON CPAP/PS MODE, PEEP 5, RR 12. WILL CONTINUE TO MONITOR.
--- NOTE | 2017-05-16 18:14 | NUR ---
PT IS AWAKE AND ALERT. FOLLOWS COMMANDS. ABLE TO MAKE NEEDS KNOWN BY SHAKING HEAD AND NODDING. COOPERATIVE AT THIS TIME. NO ACUTE DISTRESS NOTED. WILL CONTINUE TO MONITOR.
--- NOTE | 2017-05-16 19:23 | NUR ---
REPORT GIVEN TO CATERING OPERATIONS MANAGER RN FOR CONTINUITY OF CARE. PT IS IN STABLE CONDITION.
--- NOTE | 2017-05-16 19:25 | NUR ---
REPORT RECEIVED FROM MORNING NURSE, GABY MAGALLON. PT IS ALERT AND AWAKE AND FOLLOWS SIMPLE COMMANDS. PERRL. ETT TO CPAP/PS 12 PEEP 5 ORDER AND THERE IS AN ORDER TO WEAN TOLERATED AND EXTUBATE. RT AT BED SIDE TO GET ABG AND WILL FOLLOW UP WITH MD FOR FURTHER ORDER ON WEANING. NGT TO TUBE FEEING VIA LEFT NARE. NGT IN PLACE AND RESIDUAL NOTED 5ML. S1 AND S2 HEARD AND NO ABNORMAL HEART SOUNDS HEARD. BOWEL SOUNDS HEARD FROM ALL 4 QUADS. PERIPHERAL IV SITES TO RFA 22G AND RIGHT HAND 22 G ASYMPTOMATIC AND PATENT. SCD TO BILATERAL LOWER EXTREMITIES. MANN CATHETER DRAINING CLEAR YELLOW URINE VIA GRAVITY. DENIES PAIN. EXPLAINED THE PT FOR POSSIBLE WEANING. CONTINUING WITH CARDIAC MONITORING. NO ACUTE DISTRESS NOTED AT THIS TIME. CALL LIGHT IN REACH AND BED KEPT TO THE LOWEST POSITION. HOB ELEVATED 30 DEGREES. WILL CONTINUE TO MONITOR.
--- NOTE | 2017-05-16 19:45 | NUR ---
PT MADE AWARE OF THE WEANING PROCESS BEING HOLD AND BACK TO PROPOFOL SEDATION TO KEEP RASS -4 ORDERED. PT BACK TO ETT TO VENT AC 18, FIO2 35. TV 450, PEEP 5. WILL CONTINUE TO MONITOR.
--- NOTE | 2017-05-16 19:45 | NUR ---
ABG RESULSTS CALLED INTO DR JEONG, DECIDED TO KEEP PT INTUBATED FOR THE NIGHT PER ABG RESULTS AND WEANING PARAMETERS. WILL TRY WEANING AND ABG AGAIN IN THE MORNING. PT PLACED BACK ON SEDATION FOR THE EVENING, WILL CONTINUE TO MONITOR
--- NOTE | 2017-05-16 20:09 | NUR ---
RECEIVED PT STABLE ON VENT SUPPORT AT DOCUMENTED SETTINGS, SXN SMALL CLEAR WHITE THIN SECRETIONS, HHN TX GIVEN, TOLERATED WELL, NO RESP DISTRESS OR SOB NOTED, ALARMS SET AND AUDIBLE, VENT PLUGGED INTO RED OUTLET, BAG MASK AT BEDSIDE, WILL CONTINUE TO MONITOR
[2017-05-16] MEDS: methylPREDNISolone SS 40 MG/ML VIAL IVP SCH (20:14)
[2017-05-16] MEDS: HYDROmorphone 1 MG/ML AMP IVP PRN (20:15)
[2017-05-16] MEDS: HYDRAGUARD CREAM TP SCH (21:00)
--- NOTE | 2017-05-16 22:20 | NUR ---
DR. SWANN CALLED AND ORDERED TO TRY WEAN OFF TOMORROW MORNING. MD MADE AWARE OF CONTINUING WITH SAME VENT SETTING AND PROPOFOL SEDATION TO MEET RASS -4 UNTIL TOMORROW MORNING PER HIS PREVIOUS ORDER.
--- NOTE | 2017-05-16 23:10 | NUR ---
PT SEDATED WITH PROPOFOL TITRATING AND IS NOW AT RASS -4. VS STABLE. CONTINUE WITH SAME VENT SETTING. FLACC=0. NO ACUTE DISTRESS NOTED. CONTINUING WITH CARDIAC MONITORING. WILL CONTINUE TO MONITOR.
[2017-05-17] VITALS (42 sets, daily range): BP systolic 110–148; BP diastolic 74–103
[2017-05-17] MEDS: ALBUTEROL SULFATE/IPRATROPIU 3 ML SOL IH SCH ×4 (00:56→19:44)
[2017-05-17] MEDS: VANCOMYCIN 1GM/DEXT 5% PREMIX 200 ML IV SCH ×2 (01:51→14:46)
[2017-05-17] MEDS: NACL 0.9% 1,000 ML IV SCH ×3 (01:57→13:55)
--- NOTE | 2017-05-17 03:00 | NUR ---
PT VS STABLE. NO ACUTE DISTRESS NOTED. ALL SAFETY PRECAUTIONS IN PLACE. WILL CONTINUE TO MONITOR.
[2017-05-17] MEDS: PROPOFOL 1000 MG/100 ML PREMIX 100 ML IV PRN (03:59)
[2017-05-17] MEDS: methylPREDNISolone SS 40 MG/ML VIAL IVP SCH (04:15)
[2017-05-17] MEDS: HYDRAGUARD CREAM TP SCH ×3 (04:16→22:03)
[2017-05-17] MEDS: MIDODRINE 5 MG TAB PO SCH (06:02)
--- NOTE | 2017-05-17 06:03 | NUR ---
RASS NOTED +1. INCREASED PROPOFOL TO 60 MCG/KG/MIN.
--- NOTE | 2017-05-17 06:13 | NUR ---
RASS -4 AT THIS TIME.
[2017-05-17 06:29] LABS: BASOPHILS # (AUTO) 0.3 K/uL (0.00-0.22); BASOPHILS % (AUTO) 3.6 % (0.0-2.0); EOSINOPHILS % (AUTO) 0.2 % (0.0-4.0); HEMATOCRIT 31.9 % (36-48); HEMOGLOBIN 10.4 g/dL (12.0-16.0); LYMPHOCYTES # (AUTO) 0.5 K/uL (2.5-16.5); LYMPHOCYTES % (AUTO) 5.4 % (20.5-51.1); MEAN CORPUSCULAR HEMOGLOBIN 30 pg (27-31); MEAN CORPUSCULAR HGB CONC 32 g/dL (33-37); MEAN CORPUSCULAR VOLUME 92 fL (80-94); MONOCYTES # (AUTO) 0.1 K/uL (0.8-1.0); MONOCYTES % (AUTO) 1.6 % (1.7-9.3); NEUTROPHILS % (AUTO) 89.2 % (42.2-75.2); PLATELET COUNT (AUTO) 145 K/uL (140-450); RED BLOOD CELL COUNT(AUTO) 3.47 MIL/uL (4.20-5.40); WHITE BLOOD COUNT (AUTO) 8.9 K/uL (4.8-10.8)
--- NOTE | 2017-05-17 06:44 | NUR ---
XR TECH PERFORMING CHEST XR AT BED SIDE AT THIS TIME.
[2017-05-17 06:47] LABS: ANION GAP 7.5 (8-16); CARBON DIOXIDE 36.2 mmol/L (21-32); CREATININE 0.6 mg/dL (0.6-1.3); POTASSIUM 4.7 mmol/L (3.5-5.1)
--- NOTE | 2017-05-17 06:51 | NUR ---
REC'D PT ON CARESCAPE VENT SETTINGS AC18 VT 450 PEEP 5 FIO2 35% ALARMS ON AND FUNCTIONING PROPERLY, AMBU BAG AT SIDE OF VENT AND VENTILATOR IS PLUGGED INTO RED OUTLET, I\L TXS GIVEN WITH DUONEB 3ML AND PULMICORT 0.5MG WITH NO ADVERSE REACTION POST TX B\S ARE COARSE BILATERALLY, SNX PT MODERATED AMT OF THICK CLEAR SECRETIONS, PT IS ORALLY INTUBATED WITH 7.5 ET TUBE SECURED WITH ANCHOR FAST AT 24CM AT MIDLINE OF MOUTH AND SKIN INTEGRITY IS INTACT CUFF PRESSURE IS 21CM H20
[2017-05-17] MEDS: BUDESONIDE 0.5 MG/2 ML NEBU INH SCH ×2 (07:01→19:45)
--- NOTE | 2017-05-17 07:28 | NUR ---
REPORT GIVEN TO MORNING NURSE. VS STABLE.
--- NOTE | 2017-05-17 07:30 | NUR ---
RECEIVED A REPORT FROM GABY PEREZ. PT SEDATED AND UNABLE TO FOLLOW COMMANDS. FLACC 0 AND NO S/SX OF RESPIRATORY DISTRESS NOTED. ETT TO VENT AND SETTING AT FiO2 30, TV 450, RR 18, PEEP 5. NGT IN PLACE TO FEEDING AND MANN CATHETER DRAINING CLEAR YELLOW URINE. ON CONTINUOUS DRIP WITH PROPOFOL ORDERED PER PROTOCOL AND APPLIED BILATERAL MITTENS FOR SAFETY PRECAUTION. SKIN WARM TO TOUCH. PERIPHERAL IV LINE TO LT WRIST #22G AND RT HAND 22G, PATENT AND INTACT. BED IN LOW POSITION, CALL LIGHT WITHIN REACH. WILL CONTINUE TO MONITOR.
[2017-05-17 07:38] LABS: MAGNESIUM 1.9 mg/dL (1.8-2.4); PHOSPHORUS 5.3 mg/dL (2.5-4.9)
--- NOTE | 2017-05-17 08:00 | NUR ---
PAGED DR. GUZMAN REGARDING CRITICAL CXR RESULT AND WAITING FOR CALL BACK
--- NOTE | 2017-05-17 08:05 | NUR ---
RECEIVED CALLBACK FROM DR. GUZMAN AND NOTIFIED CXR RESULT WITH ABNORMAL LAB RESULT, CA 7.6 AND PO4 5.3. PER DR. GUZMAN, ETT TO BE PULL OUT 5CM BY RT AND STOP PROPOFOL, DO NOT TITRATE PROPOFOL. WILL FOLLOW UP ON ORDERS.
--- NOTE | 2017-05-17 08:07 | NUR ---
RT WAS INFORMED AND STOP PROPOFOL. PER DR. GUZMAN, IF PT IS STABLE, START WEANING VENTILATOR.
--- NOTE | 2017-05-17 08:20 | NUR ---
PULLED ET TUBE OUT TO 21 CM AT RIGHT CORNER AND STAT CHEST XRAY DONE.
--- NOTE | 2017-05-17 08:25 | NUR ---
PLACED PT ON CPAP [address] GUZMAN CALLED AT [phone] DR. GUZMAN ORDERED TO EXTUBATE PT AND PLACE ON 3LNC TO KEEP SAT ABOVE 92%
--- NOTE | 2017-05-17 08:25 | NUR ---
RT AT BEDSIDE AND ETT PLACEMENT WAS CHANGED ORDERED. REPEAT CXR ORDERED FOR FOLLOW UP. CHANGED TO CPAP MODE BY RT. WILL CONTINUE TO MONITOR.
[2017-05-17] MEDS ORDERED: CALCIUM GLUCONATE 10% 1,000 MG in NACL 0.9% 50 ML IV SCH (08:30)
--- NOTE | 2017-05-17 08:36 | NUR ---
CXR JUST TAKEN AT BEDSIDE AND PT IS VERY AGITATED WITHOUT PROPOFOL, KEEPS TRYING TO PULLING OUT TUBING AND. PAGED DR. GUZMAN AND WAITING FOR CALLBACK. RT AT BEDSIDE
--- NOTE | 2017-05-17 08:43 | NUR ---
DR. GUZMAN CALLED BACK AND WAS NOTIFIED OF PT'S CONDITION. DR. GUZMAN SPOKE TO RT FOR THE PLAN OF EXTUBATION. WILL CONTINUE TO MONITOR.
--- NOTE | 2017-05-17 08:47 | NUR ---
PT WAS EXTUBATED BY RT AT BEDSIDE. WILL CONTINUE TO MONITOR.
--- NOTE | 2017-05-17 08:47 | NUR ---
PT EXTUBATED AND PLACED ON 3LNC
[2017-05-17] MEDS: LEVOFLOXACIN 500 MG/D5W PREMIX 100 ML IV SCH (08:59)
[2017-05-17] MEDS: RIFAXIMIN 550 MG TAB PO SCH ×2 (08:59→23:10)
[2017-05-17] MEDS: LACTULOSE 20 GM/30 ML UDC PO SCH ×2 (09:00→22:02)
[2017-05-17] MEDS: PANTOPRAZOLE 40 MG INJ VIAL IVP SCH (09:00)
[2017-05-17] MEDS: LACTOBACILLUS RHAMNOSUS GG 1 EACH CAP NG SCH (09:00)
[2017-05-17] MEDS: ENOXAPARIN 30 MG/0.3 ML SYR SUBQ SCH (09:01)
[2017-05-17] MEDS: METHADONE 10 MG TAB NG SCH (09:01)
--- NOTE | 2017-05-17 09:25 | NUR ---
PT TOLERATED MEDICATIONS WELL AND NO S/SX OF ACUTE RESPIRATORY DISTRESS. ON O2 3L/M VIA N/C. PT ALERT AND ORIENTED AND ABLE TO VERBALIZE NEEDS. CALM AND NO AGITATION. WILL CONTINUE TO MONITOR
--- NOTE | 2017-05-17 09:50 | NUR ---
DR. GUZMAN IN TO SEE PT. WILL FOLLOW UP ON ORDERS
--- NOTE | 2017-05-17 09:55 | NUR ---
PER DR. GUZMAN, HE INFORMED DR. MIKE AND DR. LAIRD FOR THE CONSULTATION.
--- NOTE | 2017-05-17 10:00 | NUR ---
PT'S DAUGHTER AND BOYFRIEND ARE AT BEDSIDE.
--- NOTE | 2017-05-17 10:30 | NUR ---
REMOVED NGT PER DR. GUZMAN ORDER. WILL CONTINUE TO MONITOR
--- NOTE | 2017-05-17 10:45 | NUR ---
CHANGED TO OXYMIZER 5L/M BY RT. WILL CONTINUE TO MONITOR
--- NOTE | 2017-05-17 10:56 | NUR ---
FAXED ALL INFORMATIONS TO DR. MIKE FOR THE CONSULTATION.
--- NOTE | 2017-05-17 11:23 | NUR ---
DR. LAIRD IN TO SEE PT. WILL FOLLOW UP ON ORDERS Addendum: 05/17/17 at 1124 by Allen Herndon RN DOCUMENTATION ERROR ABOVE; DR. LAIRD IN NOT FOR THIS PT.
--- NOTE | 2017-05-17 11:53 | NUR ---
FAXED CONCURRENT REVIEW TO [facility] [phone] PHONE [phone]
--- NOTE | 2017-05-17 13:28 | NUR ---
REMOVED MANN CATHETER. NO S/SX OF BLEEDING. WILL CONTINUE TO MONITOR
--- NOTE | 2017-05-17 13:40 | NUR ---
PINO, PT'S SISTER CALLED AND GIVEN AN UPDATE OF PT'S CONDITION AND INFORMED OF THE TRANSFER ORDER TO TELEMETRY ROOM 123B.
--- NOTE | 2017-05-17 13:53 | NUR ---
REPORT GIVEN TO GABY DIAS AT [facility] AND PT WILL BE TRANSFER TO ROOM 123B.
[2017-05-17] MEDS: SKINTEGRITY HYDROGEL TP SCH (13:55)
--- NOTE | 2017-05-17 13:55 | NUR ---
PT STABLE AND WAS TRANSFERRED TO TELEMETRY UNIT ROOM 123B.
--- NOTE | 2017-05-17 14:20 | NUR ---
PATIENT TRANSFERRED TO THE UNIT FROM ICU. PATIENT AWAKE AND ALERT. PATIENT RECEIVING 5L O2 VIA OXIMIZER. NO SOB AT THIS TIME. O2 SAT 97%. SKIN TEAR NOTED ON THE LEFT ARM. IV LINE NOTED TO THE LEFT WRIST. PATIENT PLACED ON TELE MONITORING. BED LOWERED WITH CALL LIGHT WITHIN REACH. WILL CONTINUE TO MONITOR
--- NOTE | 2017-05-17 14:47 | NUR ---
05/17/17 RD FOLLOW UP COMPLETED PLEASE REFER TO NUTRITION PROGRESS NOTE UNDER CARE ACTIVITY FOR ESTIMATED NUTRITION NEEDS. 1. CONTINUE CLEAR LIQUID DIET TOLERATED PER MD 2. WHEN PT MORE AWAKE AND ALERT ADVANCE DIET TO SOFT AND THEN REGULAR, TOLERATED --CLOSELY MONITOR PT WITH MEALS 3. CONSIDER SWALLOW EVALUATION FOR A CHANGE IN DIET TEXTURE MODIFICATION IF NEEDED. 4. RD TO FOLLOW-UP 2-3 DAYS, HIGH RISK MEGHANA AQUINO RD
--- NOTE | 2017-05-17 19:39 | NUR ---
PATIENT REPORT GIVEN TO NIGHT NURSE. PATIENT ENDORSED IN STABLE CONDITION
[2017-05-18] VITALS (93 sets, daily range): BP systolic 66–149; BP diastolic 42–94
--- NOTE | 2017-05-18 00:30 | NUR ---
PT ASKED FOR A BEDPAN TO URINATE. URINE OUT PUT 150ML. PT STATED SHE NEEDS TO HAVE HER TREATMENT BECAUSE SHE IS HAVING DIFFICULTY BREATHING. O2 SAT 99%. PT OBEYS COMMANDS, NO SIGNS OF DISTRESS. PT ABLE TO VERBALIZED NEEDS. PAGED RT MACHO FOR TREATMENT.
[2017-05-18] MEDS: ALBUTEROL SULFATE/IPRATROPIU 3 ML SOL IH SCH ×4 (01:01→19:15)
--- NOTE | 2017-05-18 01:07 | NUR ---
INSTRUMENT WORKER WAS CALLED AND INSTRUMENT WORKER TEAM AT BEDSIDE. PANTRY STEWARD/STEWARDESS SHAUN RN, CHARGE NURSE GABY SAWANT AT BEDSIDE. DR. ACOSTA AT BEDSIDE.
--- NOTE | 2017-05-18 01:08 | NUR ---
RN CALLED TO GAVE PT THE TX HHN BECAUSE SHE ASK FOR.GOT IN THE ROOM AND STARTING THE HHN TX WITH DUONEB 3MG AND PLACED PULSE OX IN THE PT FINGER , AND I SAW HR 134, AND SAT 40%, AND TRY TO TALK WITH THE PT , BUT LOOK LETHARGIC. AND, TOLD THE LITHOPLATE MAKER TO CALLED BUILDING PERFORMANCE CONSULTANT(RAPID RESPONSE)., DR ACOSTA AND ALL THE REST OF THE CREW COME FAST IN THE ROOM. WE STARTING BAG THE PT AND INTUBATED WITH SIZE 7.5 AT 24 CM AT THE LIP.TRANSFER PT TO ICU BED 1, PLACED HER IN THE VENT, WITH SAME VENT SETTING BEFORE INTUBATION, AC 18, VT 450, PEEP 5 65%. VENT CK DONE , ALARMS ON , VITALS STABLE AT THIS TIME, NO DISTRESS NOTED.
--- NOTE | 2017-05-18 01:15 | NUR ---
DR. WHITE NOTIFIED OF PT.'S CONDITION BY MT. MIGUEL
--- NOTE | 2017-05-18 01:23 | NUR ---
PT INTUBATED BY DR. ACOSTA. PLEASE SEE CODE BLUE SHEET.
--- NOTE | 2017-05-18 01:25 | NUR ---
CHETNA RIVERA NOTIFIED SISTER ABOUT PT'S CURRENT CONDITION AN IS AWARE THAT PT WILL BE TRANSFERRED TO ICU.
[2017-05-18] MEDS ORDERED: methylPREDNISolone SS 125 MG/2 ML VIAL ONE (01:35)
[2017-05-18] MEDS ORDERED: methylPREDNISolone SS 125 MG/2 ML VIAL IVP STA (01:42)
--- NOTE | 2017-05-18 02:00 | NUR ---
PT TRANSFERRED TO ICU.
--- NOTE | 2017-05-18 02:10 | NUR ---
PT ARRIVED IN ICU PT ATTACHED TO FENCE BUILDER. RT AT BEDSIDE.WITH ET, RT BAGGING AT BEDSIDE. WILL CONTINUE TO MONITOR.
--- NOTE | 2017-05-18 02:15 | NUR ---
PT ATTACHED TO ETT TO VENT WITH FIO2 65% TV 450 AC 18 PEEP 5.
--- NOTE | 2017-05-18 02:25 | NUR ---
NOTIFIED DR. MARTE THAT PT IS IN ICU. UPDATED OF PT'S CONDITION WITH ORDERS MADE.
--- NOTE | 2017-05-18 02:30 | NUR ---
MANN CATH INSERTED WITH YELLOW URINE OUTPUT ANG OGT FR 14 INSERTED. NURSES CHECK AND VERIFIED PLACEMENT. XRAY TO CHECK PATENCY. WILL FOLLOW UP.
[2017-05-18] MEDS: HYDROmorphone 1 MG/ML AMP IVP PRN (02:47)
[2017-05-18] MEDS ORDERED: PROPOFOL 1000 MG/100 ML PREMIX 100 ML IV ONE (03:01)
[2017-05-18] MEDS: VANCOMYCIN 1GM/DEXT 5% PREMIX 200 ML IV SCH ×2 (03:08→13:35)
[2017-05-18] MEDS ORDERED: MIDAZOLAM 2 MG/2 ML VIAL IV ONE (03:10)
[2017-05-18] MEDS: PROPOFOL 1000 MG/100 ML PREMIX 100 ML IV PRN ×3 (03:27→20:21)
--- NOTE | 2017-05-18 04:15 | NUR ---
DR. ACOSTA AWARE OF ABG RESULTS. Addendum: 05/18/17 at 0557 by Janina Tay RN POST INTUBATION ABG RESULT
[2017-05-18] MEDS: HYDRAGUARD CREAM TP SCH ×3 (05:15→21:45)
[2017-05-18 05:36] LABS: ANION GAP 4.9 (8-16); CREATININE 0.7 mg/dL (0.6-1.3); POTASSIUM 3.9 mmol/L (3.5-5.1)
[2017-05-18 05:57] LABS: MAGNESIUM 1.8 mg/dL (1.8-2.4); PHOSPHORUS 4.9 mg/dL (2.5-4.9)
--- NOTE | 2017-05-18 06:06 | NUR ---
DR. MARTE AWARE OF POST INTUBATION ABG RESULT, CO2 LEVEL. FOR ABG AT 9AM.
[2017-05-18 06:15] LABS: HEMATOCRIT 31.3 % (36-48); HEMOGLOBIN 10.1 g/dL (12.0-16.0); MEAN CORPUSCULAR HEMOGLOBIN 30 pg (27-31); MEAN CORPUSCULAR HGB CONC 32 g/dL (33-37); MEAN CORPUSCULAR VOLUME 93 fL (80-94); PLATELET COUNT (AUTO) 210 K/uL (140-450); RED BLOOD CELL COUNT(AUTO) 3.35 MIL/uL (4.20-5.40); RED CELL DISTRIBUTION WIDTH 14.5 % (11.6-13.7); WHITE BLOOD COUNT (AUTO) 20.5 K/uL (4.8-10.8)
--- NOTE | 2017-05-18 07:08 | NUR ---
REC'D PT ON CARESCAPE VENT SETTINGS AC 18 VT 450 PEEP 5 FIO2 65% ALARMS ON AND FUNCTIONING PROPERLY AND AMBU BAG IS AT SIDE OF VENT AND VENTILATOR IS PLUGGED INTO RED OUTLET, I\L TXS GIVEN WITH DUONEB 3ML AND PULMICORT 0.5MG WITH NO ADVERSE REACTION POST TX B\S ARE COURSE BILATERALLY,SXN PT SMALL AMT OF CLEAR SECRETIONS PT IS ORALLY INTUBATED WITH 7.5 ET TUBE AND SECURED WITH ANCHOR FAST AT 23CM AT LEFT CORNER
[2017-05-18] MEDS: BUDESONIDE 0.5 MG/2 ML NEBU INH SCH ×2 (07:21→19:15)
[2017-05-18 07:24] LABS: LYMPHOCYTES % (MANUAL) 2 % (20-46); MONOCYTES % (MANUAL) 3 % (5-12)
--- NOTE | 2017-05-18 07:30 | NUR ---
ERIKA PHARMACIST AWARE OF VANCO TROUGH RESULT. REPORT GIVEN TO MAYITO GRIFFIN FOR CONTINUITY OF CARE. STABLE CONDITION AT THIS TIME. DR. GUZMAN AT BEDSIDE EVALUATING PT. UPDATED WITH PT'S CONDITION.
--- NOTE | 2017-05-18 07:30 | NUR ---
RECEIVED REPORT FROM PLATE MOLDER NURSE, PT IS AWAKE, TRYING TO MOVE UPPER BODY NOTED, ABLE TO FOLLOW SIMPLE COMMANDS. PT 7.5 SIZE ETT TO VENT WITH VENT SETTING AC FIO2 65,VT 450, RATE 18, PEEP 5. OGT IN PLACE WITH NO RESIDUAL. SKIN TEAR NOTED WITH LEFT WRIST AND LEFT UPPER ARM. SCABS ON BILATERAL LOWER LEGS. PT ON PERIPHERAL IV LINE ON LEFT WRIST 24G AND LEFT EXTERNAL JUGULAR 20G ARE PATENT AND INTACT, WITH CONTINUOS PROPOFOL AND NS DRIPS. F/C IN PLACE WITH CLEAR YELLOW URINE NOTED. BED IN LOW POSITION. CONTINUE TO MONITOR.
--- NOTE | 2017-05-18 08:30 | NUR ---
INCREASED VT TO 500 AND RR TO 16
--- NOTE | 2017-05-18 08:40 | NUR ---
decreased fio2 to 50% and abg drawn on rr with incident and called Addendum: 05/18/17 at 0844 by Tamiko Lynch RT on right radial without incident
[2017-05-18] MEDS: LACTULOSE 20 GM/30 ML UDC PO SCH ×2 (09:15→20:21)
[2017-05-18] MEDS: PANTOPRAZOLE 40 MG INJ VIAL IVP SCH (09:15)
[2017-05-18] MEDS: LACTOBACILLUS RHAMNOSUS GG 1 EACH CAP NG SCH (09:16)
[2017-05-18] MEDS: LEVOFLOXACIN 500 MG/D5W PREMIX 100 ML IV SCH (09:16)
[2017-05-18] MEDS: RIFAXIMIN 550 MG TAB PO SCH ×2 (09:16→20:24)
[2017-05-18] MEDS: METHADONE 10 MG TAB NG SCH (09:17)
[2017-05-18] MEDS: ENOXAPARIN 30 MG/0.3 ML SYR SUBQ SCH (09:18)
--- NOTE | 2017-05-18 11:02 | NUR ---
AT 1050 CALLED GIVEN RESULTS AND ORDERED TO DECREASE RR TO 14 AND VT AT 500 GOOD
[2017-05-18] MEDS ORDERED: POTASSIUM CHLORIDE 20 MEQ in NACL 0.9% 1,000 ML IV SCH (11:05)
[2017-05-18] MEDS ORDERED: NACL 0.9% 1,000 ML IV SCH (11:05)
--- NOTE | 2017-05-18 11:18 | NUR ---
VENT CHECK, NO SXN REQUIRED AT THIS TIME AIRWAY PATENT AND PT SLEEPING DECREASED FIO2 TO 45% AND GABY EDMOND NOTIFIED OF CHANGES MADE
--- NOTE | 2017-05-18 12:45 | NUR ---
vENT CHECK NO SUCTION REQUIRED IN LINE TREATMENT GIVEN WITH DUONEB 3ML WITH NO ADVERSE REACTION POST TREATMENT PATIENT SLEEPING
[2017-05-18] MEDS: POTASSIUM CHL 20 MEQ/NACL 0.9% 1,000 ML IV SCH ×2 (13:34→21:15)
[2017-05-18] MEDS: SKINTEGRITY HYDROGEL TP SCH (13:42)
--- NOTE | 2017-05-18 15:10 | NUR ---
VENT CHECK, NO SXN REQUIRED AT THIS TIME, B\S ARE CLEAR AND AIRWAY IS PATENT PT IS RESTING
--- NOTE | 2017-05-18 16:01 | NUR ---
P.T. NOTES D/C FROM P.T. DUE TO CHANGE IN MEDICAL CONDITION, WILL AWAIT FOR P.T. RE EVAL WHEN APPROPRIATE.
--- NOTE | 2017-05-18 17:20 | NUR ---
ARCADIO MORENO UPDATED ABOUT PATIENTS CONDITION ESPECIALLY PATIENT WAS TRANSFERRED BACK FROM ANOTHER FLOOR TO ICU AND WAS INTUBATED LAST MANAGER OF PMO.UPDATED PATIENT IS NOW ON BILATERAL SOFT WRIST RESTRAINTS.ALSO SEDATED.
--- NOTE | 2017-05-18 17:30 | NUR ---
PINO TATE UPDATED ABOUT PATIENTS CONDITION ESPECIALLY PATIENT IS NOW INTUBATED AND SEDATED.
--- NOTE | 2017-05-18 19:20 | NUR ---
PT RECEIVED FROM [facility] ON NOTED VENT SETTINGS. PT AWAKE AND ALERT, HAS A #7.5 ETT AT 24 LIP LINE SECURED WITH AN ANCHOR FAST. BREATH SOUNDS APPEAR CLEAR BILATERALLY. INLINE TX GIVEN ORDERED, PT SUCTIONED OF SMALL AMOUNT THIN WHITE SECRETIONS ORALLY AND VIA ETT. NO ADVERSE EFFECTS NOTED. VENT ALARMS ON AND AUDIBLE. VENT PLUGGED INTO RED ELECTRICAL OUTLET. AMBU BAG ON SIDE OF VENT.
--- NOTE | 2017-05-18 19:30 | NUR ---
RECEIVED PT FROM AM SHIFT, PT IS AWAKE, ALERT,ORIENTED. PT IS INTUBATED. ETT TO VENT. VENT SETTING AC 14,TV 500,FIO2 45,PEEP 5 TOLERATED WELL. NO S/S OF RESP DISTRESS,NO SOB. HOB UP 30-45 DEGREE.LUNGS SOUND CLEAR BILATERALLY. SR ON MONITOR. IV TO LEFT WRIST NO 24 . AND NO 20 G TO LEFT EXTERNAL JUGULAR. IVF 20 HERMAN KCL IN NS AT 100 CC/HR AND PROPOFOL DRIPS AT 45 MCG/KG/HR. OGT IN PLACE. PT NPO MEDS ONLY UNTIL FURTHER ORDER. POSITIVE BOWEL SOUNDS TO ALL QUADRANTS. F/C IN PLACE WITH YELLOW CLEAR URINE NOTED.CALL LIGHT IN REACH.
--- NOTE | 2017-05-18 19:36 | NUR ---
[facility] NOTED VENT SETTINGS. PT AWAKE, HAS A #7.5 ETT SECURED AT 24 LIP LINE WITH AN ANCHOR FAST. BREATH SOUNDS APPEAR CLEAR BILATERALLY, INLINE TX GIVEN ORDERED. PT LAVAGED AND SUCTIONED SMALL AMOUNT THIN WHITE SECRETIONS. NO ADVERSE EFFECTS NOTED. VENT ALARMS ON AND AUDIBLE. VENT PLUGGED INTO RED ELECTRICAL OUTLET. AMBU BAG ON SIDE OF VENT.
--- NOTE | 2017-05-18 20:15 | NUR ---
PT PULLING OUT OGT AND OPEN HER HAND MITTEN. INCREASE PROPOFOL TO 50 MCG/KG/HR TO REACH RASS -4. OGT REINSERTED. PLACEMENT CONFIRM BY AUSCULTATION AND 1 CC RESIDUAL NOTED. HOB UP 30-45 DEGREE AT ALL THE TIMES. REMIND PT TO NOT PULLING ANY TUBE. PT SAID SHE UNDERSTAND.
--- NOTE | 2017-05-18 20:30 | NUR ---
RASS -2 INCREASE THE PROPOFOL TO 55 MCG/KG/HR. TO REACH RASS -4.
--- NOTE | 2017-05-18 20:45 | NUR ---
MEDS GIVEN ORDER TOLERATED WELL
--- NOTE | 2017-05-18 21:00 | NUR ---
PT IS AWAKE TRYING PULLING TUBINGS/LINE. INCREASE THE PROPOFOL TO 60 MCG/KG/HR.CONTINUE TO MONITOR CLOSELY. KEPT REMIND PT TO NOT PULLING ANY TUBE/LINE. PT NODDING FOR YES.
--- NOTE | 2017-05-18 21:05 | NUR ---
VENT CHECKED. ETT MOVED FROM RIGHT TO LEFT SIDE OF MOUTH. PT SUCTIONED ORALLY AND VIA ETT FOR SMALL AMOUNT WHITE/CLEAR SECRETIONS. NO ADVERSE EFFECTS NOTED.
--- NOTE | 2017-05-18 21:15 | NUR ---
IVF STILL INFUSING ORDER ABOUT 300 CC IN THE BAG. CONTINUE TO MONITOR.
--- NOTE | 2017-05-18 22:35 | NUR ---
PT SLEEP AT THIS TIME
--- NOTE | 2017-05-18 23:13 | NUR ---
VENT CHECKED. PT QUIET/ASLEEP, BREATH SOUNDS CLEAR. NO SUCTIONING DONE AT THIS TIME. NO DISTRESS NOTED.
[2017-05-18] MEDS ORDERED: LEVOFLOXACIN 500 MG/D5W PREMIX 100 ML IV SCH (23:15)
[2017-05-19] VITALS (108 sets, daily range): BP systolic 88–156; BP diastolic 46–105
--- NOTE | 2017-05-19 | NUR ---
VAP ORAL CARE GIVEN. CLARIFIED LEVAQUIN ORDER FROM WITH [facility] TO GIVE THE LEVAQUIN 500 MG IN AM 05/19/17 D/T MED WAS GIVEN ON 05/18/17 AT 0916.
[2017-05-19] MEDS: PROPOFOL 1000 MG/100 ML PREMIX 100 ML IV PRN ×6 (00:14→21:38)
--- NOTE | 2017-05-19 01:00 | NUR ---
PT SLEEPING AT THIS TIME,NO S/S OF PAIN.RASS -4.
[2017-05-19] MEDS: VANCOMYCIN 1GM/DEXT 5% PREMIX 200 ML IV SCH (01:11)
[2017-05-19] MEDS: POTASSIUM CHL 20 MEQ/NACL 0.9% 1,000 ML IV SCH ×2 (01:11→14:24)
[2017-05-19] MEDS: ALBUTEROL SULFATE/IPRATROPIU 3 ML SOL IH SCH ×4 (01:50→19:52)
--- NOTE | 2017-05-19 01:55 | NUR ---
VENT CHECKED. PT ASLEEP, BREATH SOUNDS CLEAR, INLINE TX GIVEN ORDERED. PT ORALLY SUCTIONED SMALL AMOUNT THIN CLEAR SECRETIONS. NO ADVERSE EFFECTS NOTED.
--- NOTE | 2017-05-19 03:44 | NUR ---
VENT CHECKED. PT ASLEEP, HME CHANGED. NO DISTRESS/ADVERSE EFFECTS NOTED.
--- NOTE | 2017-05-19 05:00 | NUR ---
AM CARE ,VAP CARE,F/C CARE GIVEN TOLERATED WELL.HOB UP 30 DEGREE ALL THE TIMES. CONT ON SOFT RESTRAINT D/T PT TRYING TO PULLING THE TUBE/LINES.SKIN INTACT ON BOTH HANDS.
[2017-05-19] MEDS: methylPREDNISolone SS 40 MG/ML VIAL IVP SCH ×3 (05:15→20:17)
[2017-05-19] MEDS: HYDRAGUARD CREAM TP SCH ×3 (05:16→20:18)
--- NOTE | 2017-05-19 05:28 | NUR ---
VENT CHECKED, PT AWAKE, RN AT BEDSIDE, JUST SUCTIONED PT ORALLY. NO DISTRESS NOTED.
[2017-05-19] MEDS: HYDROmorphone 1 MG/ML AMP IVP PRN (05:30)
--- NOTE | 2017-05-19 05:30 | NUR ---
PT IS RESTLESS,FACIAL GRIMMICING NOTED,PT C/O PAIN PAIN GENERALIZED BODY 8/10, PT IS AWAKE AND ALERT AT THIS TIME.PT KEPT MOVE IN THE BED. DILAUDID IVP SLOWLY GIVEN ORDER.
--- NOTE | 2017-05-19 05:55 | NUR ---
PROPOFOL IS INCREASING UP TO 70 D/T PT AWAKE AND TRYING TO GET UP AND TRYING TO PULLING ETT TUBE AND OGT.INCREASE TO REACH GOAL OF -4.CONTINUE TO MONITOR CLOSELY.
[2017-05-19 06:18] LABS: BASOPHILS # (AUTO) 0.4 K/uL (0.00-0.22); BASOPHILS % (AUTO) 4.7 % (0.0-2.0); EOSINOPHILS # (AUTO) 0.1 K/uL (0-0.4); EOSINOPHILS % (AUTO) 1.1 % (0.0-4.0); HEMATOCRIT 27.9 % (36-48); HEMOGLOBIN 8.7 g/dL (12.0-16.0); LYMPHOCYTES % (AUTO) 11.8 % (20.5-51.1); MEAN CORPUSCULAR HEMOGLOBIN 29 pg (27-31); MEAN CORPUSCULAR HGB CONC 31 g/dL (33-37); MEAN CORPUSCULAR VOLUME 92 fL (80-94); MONOCYTES # (AUTO) 0.6 K/uL (0.8-1.0); MONOCYTES % (AUTO) 7.3 % (1.7-9.3); NEUTROPHILS # (AUTO) 6.2 K/uL (1.8-7.7); NEUTROPHILS % (AUTO) 75.1 % (42.2-75.2); PLATELET COUNT (AUTO) 184 K/uL (140-450); RED BLOOD CELL COUNT(AUTO) 3.03 MIL/uL (4.20-5.40); RED CELL DISTRIBUTION WIDTH 14.3 % (11.6-13.7); WHITE BLOOD COUNT (AUTO) 8.3 K/uL (4.8-10.8)
[2017-05-19 06:57] LABS: ANION GAP 5.3 (8-16); CARBON DIOXIDE 38.3 mmol/L (21-32); CREATININE 0.7 mg/dL (0.6-1.3); POTASSIUM 3.6 mmol/L (3.5-5.1)
[2017-05-19 07:01] LABS: MAGNESIUM 1.8 mg/dL (1.8-2.4); PHOSPHORUS 2.8 mg/dL (2.5-4.9)
--- NOTE | 2017-05-19 07:06 | NUR ---
REPORT GIVEN TO ILA GRIFFIN MORNING SHIFT. PT IS SLEEPING ANS STABLE AT THIS TIME
[2017-05-19] MEDS: BUDESONIDE 0.5 MG/2 ML NEBU INH SCH ×2 (07:27→19:52)
--- NOTE | 2017-05-19 07:30 | NUR ---
RECEIVED REPORT FROM NIGHT NURSE. PT IS ASLEEP BUT EASILY AROUSABLE TO CALLING NAME. ALERT AND ORIENTED WHEN AWAKE. SINUS RHYTHM ON MONITOR. ETT TO VENT: AC 14, FIO2 45%, TV 500, PEEP 5. LUNGS CLEAR BILATERALLY. OGT PRESENT, PLACEMENT CHECKED. BOWEL SOUNDS PRESENT. PERIPHERAL IV G24 TO LEFT WRIST NO BLOOD RETURN NOTED. PERIPHERAL IV G20 TO LEFT EXTERNAL JUGULAR PATENT AND INTACT. IV FLUID 20 MEQ KCL IN NS AT 100 ML/HR, PROPOFOL DRIP AT 70 MCG/KG/MIN. MANN CATH IN PLACE DRAINING URINE TO GRAVITY DRAINAGE BAG. SCDS IN PLACE. HOB 30 DEGREES, BED IN LOW POSITION, CALL LIGHT WITHIN REACH. WILL CONTINUE TO MONITOR. Addendum: 05/19/17 at 1207 by Deepali Hernandez RN NO SCDS
--- NOTE | 2017-05-19 07:40 | NUR ---
RECEIVED PT STABLE ON VENT SUPPORT AT DOCUMENTED SETTINGS, HHN TX GIVEN, TOLERATED WELL, NO RESP DISTRESS OR SOB NOTED, 7.5 ETT SECURED AT 23CM AT THE LIP, ALARMS SET AND AUDIBLE, AMBU BAG AT BEDSIDE, VENT PLUGGED INTO RED OUTLET, WILL CONTINUE TO MONITOR
--- NOTE | 2017-05-19 08:05 | NUR ---
SISTER, PINO CALLED AND WAS UPDATED ON PT.
[2017-05-19] MEDS: LEVOFLOXACIN 500 MG/D5W PREMIX 100 ML IV SCH (09:31)
[2017-05-19] MEDS: PANTOPRAZOLE 40 MG INJ VIAL IVP SCH (09:31)
[2017-05-19] MEDS: LACTULOSE 20 GM/30 ML UDC PO SCH ×2 (09:31→20:16)
[2017-05-19] MEDS: RIFAXIMIN 550 MG TAB PO SCH ×2 (09:31→20:17)
[2017-05-19] MEDS: LACTOBACILLUS RHAMNOSUS GG 1 EACH CAP NG SCH (09:31)
[2017-05-19] MEDS: METHADONE 10 MG TAB NG SCH (09:31)
--- NOTE | 2017-05-19 09:32 | NUR ---
MEDICATIONS ADMINISTERED. PT TOLERATED WELL.
--- NOTE | 2017-05-19 09:32 | NUR ---
MORNING MEDS GIVEN. UNABLE TO SAVE. CHARTED MANUALLY.
[2017-05-19] MEDS: ENOXAPARIN 30 MG/0.3 ML SYR SUBQ SCH (09:35)
--- NOTE | 2017-05-19 10:18 | NUR ---
DR. GUZMAN IN, SEEN AND EXAMINED PATIENT. WILL FOLLOW UP WITH NEW ORDERS.
--- NOTE | 2017-05-19 10:45 | NUR ---
CALLED SISTERPINO TO OBTAIN CONSENT FOR PICC LINE INSERTION. CALL WAS NOT ANSWERED. LEFT A MESSAGE.
--- NOTE | 2017-05-19 10:53 | NUR ---
05/19/17 [facility]NS CONSULT FOR TUBE FEEDING RECOMMENDATION RECEIVED. PLEASE REFER TO NUTRITION ASSESSMENT UNDER CARE ACTIVITY FOR ESTIMATED NUTRITIONAL NEEDS. RD RECOMMENDATIONS: 1. RECOMMEND TF NUTREN PULMONARY@45 ML/HR WITH 150 ML OF FREE WATER FLUSH Q6H. (ADEQUATE TO MEET ~91% OF ESTIMATED KCAL NEEDS AND ~96% OF ESTIMATED PROTEIN NEEDS). SIMEON LIM MBA, RD
--- NOTE | 2017-05-19 11:33 | NUR ---
CALLED PT'S SISTER, PINO, AGAIN. CALL WAS NOT ANSWERED.
--- NOTE | 2017-05-19 11:40 | NUR ---
CLARIFIED NGT INSERTION ORDER WITH DR. GUZMAN. PER DENNIS BENSON TO USE CURRENT OGT FOR TUBE FEEDING.
--- NOTE | 2017-05-19 13:00 | NUR ---
CALLED SISTER, PINO, FOR CONSENT TO INSERT PICC LINE, AND LEFT A MESSAGE.
[2017-05-19] MEDS: SKINTEGRITY HYDROGEL TP SCH (13:16)
--- NOTE | 2017-05-19 13:55 | NUR ---
VANCOMYCIN TROUGH 19.7. HOLD VANCOMYCIN TODAY PER PHARMACY.
--- NOTE | 2017-05-19 14:00 | NUR ---
OBTAINED TELEPHONE CONSENT FOR PICC LINE INSERTION FROM PT'S SISTER, PINO.
--- NOTE | 2017-05-19 15:31 | NUR ---
PT RESTING COMFORTABLY. NO CHANGE OF CONDITION AT THIS TIME. STILL ON PROPOFOL DRIP. NO SIGNS OF ACUTE DISTRESS NOTED AT THIS TIME. VS STABLE. FLACC 0. SAFETY MEASURES ENSURED. WILL CONTINUE TO MONITOR.
--- NOTE | 2017-05-19 16:46 | NUR ---
PT'S DAUGHTER NAHID CALLED, AND WAS UPDATED ON PT.
--- NOTE | 2017-05-19 18:15 | NUR ---
CHECKED ON PT. VS STABLE. NO CHANGE OF CONDITION AT THIS TIME. WILL CONTINUE TO MONITOR.
--- NOTE | 2017-05-19 19:25 | NUR ---
REPORT GIVEN TO NIGHT NURSE FOR CONTINUITY OF CARE. PT IS IN STABLE CONDITION.
--- NOTE | 2017-05-19 19:30 | NUR ---
RECEIVED PT FROM AM SHIFT. PT IS AWAKE ALERT ROOM MATE AT BED SIDE, PT ETT TO VENT WITH VENT SETTING AT THIS TIME AC 14 TV 500 FIO2 35 AND PEEP 5 TOLERATED WELL. NO S/S OF RESP DISTRESS,NO SOB. LUNGS SOUND CLEAR.SINUS RHYTHM ON MONITOR. ON PROPOFOL DRIPS AT 60 CC/HR RASS +1 NOTED AT THIS TIME. DENIES ANY PAIN. PERIPHERAL LEFT EXTERNAL JUNGULAR INTACT WELL,NO S/S OF INFILTRATION ON THE SITE.IV 20 MEQ KCL IN 1000 ML NS GIVE AT 100 ML.HR TOLERATED WELL.OGT IN PLACE WITH 2 CC RESIDUAL NOTED. OGT TO TUBE FEEDING OF NUTRENT PULMONARY AT 45 CC/HR AND H20 AT 150 Q6 HRS.ABD SOFT NON DISTENDED TO ALL QUADRANTS.SKIN TEAR TO LEFT UPPER ARM AND LEFT WRIST COVER WITH DRY DRESSING.F/C IN PLACE WITH YELLOW CLEAR URINE DRAIN BY GRAVITY.
--- NOTE | 2017-05-19 19:53 | NUR ---
RECEIVED PT ON THE SAME VENT SETTINGS, PT IN PROPOFOL , BUT SHES AWAKE, NOT AGITATED, ALERT. HER BOY FRIEND AT BED SIDE. ME NEB IN LINE, BS ARE CLEAR AND DIMINISHED, NO RESP DISTRESS NOTED
--- NOTE | 2017-05-19 20:05 | NUR ---
RASS+1 INCREASE PROPOFOL TO 65 CC/HR TO REACH GOAL -4.
--- NOTE | 2017-05-19 20:20 | NUR ---
ZOFRAN GIVEN ORDER FOR NAUSEA/VOMITING.
--- NOTE | 2017-05-19 21:30 | NUR ---
FRIEND COME TO VISIT
--- NOTE | 2017-05-19 22:18 | NUR ---
TRAV, PICC LINE NURSE CALLED AND WAS ASKING IF THE PHYSICIAN SIGNED THE INFORMED CONSENT FOR PICC LINE INSERTION, INFORMED TRAV THAT FAMILY GAVE TELEPHONE CONSENT BUT DR. GUZMAN DID NOT SIGN THE CONSENT. PAGED DR. GUZMAN BUT DR. WOOD IS [facility]EL[facility]ENTER AGENT TONIGHT. TIMMY/RN SPOKE WITH DR. WOOD AND OBTAINED TELEPHONE CONSENT. TRAV PICC LINE NURSE INFORMED.
[2017-05-20] VITALS (105 sets, daily range): BP systolic 93–153; BP diastolic 17–93
--- NOTE | 2017-05-20 00:45 | NUR ---
PICC LINE INSERTION DONE BY TRAV HERRERAN RN TO RIGHT UPPER ARM . STAT CHEST X-RAY DONE FOR PLACEMENT AND CONFIRM. PICC LINE TO SYLVIA DOUBLE LUMEN READY TO USE.
--- NOTE | 2017-05-20 00:55 | NUR ---
SWITCH THE IVF AND PROPOFOL DRIPS TO PICC LINE.TOLERATED WELL.
[2017-05-20] MEDS: VANCOMYCIN 750 MG in DEXTROSE 5% 250 ML IV SCH ×2 (01:13→14:45)
[2017-05-20] MEDS: PROPOFOL 1000 MG/100 ML PREMIX 100 ML IV PRN ×5 (01:16→20:29)
[2017-05-20] MEDS: ALBUTEROL SULFATE/IPRATROPIU 3 ML SOL IH SCH ×4 (01:53→19:25)
[2017-05-20] MEDS: POTASSIUM CHL 20 MEQ/NACL 0.9% 1,000 ML IV SCH ×3 (03:15→19:20)
--- NOTE | 2017-05-20 03:15 | NUR ---
IVF RUNNING ORDER,NO NEW BAGS NEEDED YET. STILL 300 CC LEFT.
--- NOTE | 2017-05-20 03:30 | NUR ---
VENT CK DONE, PT ASLEEP, MONITOR PT ALL NIGHT WITHOUT ANY RESP DISTRESS, HHN TX WAS RAUL Q6, HME CHANGED, SX MOD FROTHY THIN . NO DISTRESS NOTED, VITALS STABLE.
[2017-05-20] MEDS: methylPREDNISolone SS 40 MG/ML VIAL IVP SCH ×3 (04:18→20:26)
[2017-05-20] MEDS: HYDRAGUARD CREAM TP SCH ×3 (04:19→20:31)
--- NOTE | 2017-05-20 04:30 | NUR ---
AM CARE,VAP CARE AND F/C CARE GIVEN.KEPT PT CLEAN AND DRY. CALL LIGHT IN REACH.
[2017-05-20 05:08] LABS: BASOPHILS # (AUTO) 0.1 K/uL (0.00-0.22); BASOPHILS % (AUTO) 1.3 % (0.0-2.0); EOSINOPHILS # (AUTO) 0.1 K/uL (0-0.4); EOSINOPHILS % (AUTO) 0.9 % (0.0-4.0); HEMATOCRIT 29.7 % (36-48); HEMOGLOBIN 9.4 g/dL (12.0-16.0); LYMPHOCYTES # (AUTO) 0.8 K/uL (2.5-16.5); LYMPHOCYTES % (AUTO) 11.1 % (20.5-51.1); MEAN CORPUSCULAR HEMOGLOBIN 29 pg (27-31); MEAN CORPUSCULAR HGB CONC 32 g/dL (33-37); MEAN CORPUSCULAR VOLUME 91 fL (80-94); MONOCYTES # (AUTO) 0.9 K/uL (0.8-1.0); MONOCYTES % (AUTO) 12.2 % (1.7-9.3); NEUTROPHILS # (AUTO) 5.1 K/uL (1.8-7.7); NEUTROPHILS % (AUTO) 74.5 % (42.2-75.2); PLATELET COUNT (AUTO) 199 K/uL (140-450); RED BLOOD CELL COUNT(AUTO) 3.26 MIL/uL (4.20-5.40); RED CELL DISTRIBUTION WIDTH 14.5 % (11.6-13.7)
--- NOTE | 2017-05-20 05:10 | NUR ---
AM MEDS WAS GIVEN TOLERATED WELL.
--- NOTE | 2017-05-20 05:30 | NUR ---
BLOOD DRAWN FROM PIC LINE FOR LAB TEST . RESULT PENDING.
[2017-05-20 05:54] LABS: CARBON DIOXIDE 39.9 mmol/L (21-32); CREATININE 0.6 mg/dL (0.6-1.3); POTASSIUM 3.9 mmol/L (3.5-5.1)
[2017-05-20 05:59] LABS: MAGNESIUM 1.9 mg/dL (1.8-2.4); PHOSPHORUS 3.9 mg/dL (2.5-4.9)
--- NOTE | 2017-05-20 06:57 | NUR ---
PT AWAKE EASY TO AWAKE.NO C/O PAIN AT THIS TIME
--- NOTE | 2017-05-20 07:15 | NUR ---
RECIEVED REPORT FROM NOC SHIFT. PT RESTING IN BED AWAKE. ETT TO VENT ON AC MODE WITH SETTING FIO2 35 TV 500 RR 14 PEEP 5. SKIN WARM AND DRY TO TOUCH. PUPILS REACRTIVE TO LIGHT. LEJ CATH IN PLACE. SYLVIA PERIPHERAL LINE IN PLACE. NO SWELLING NOTED. LUNGS SOUND CLEAR ONN AUSCULTATION. ABDOMINAL SOUND PRESENT ON ALL FOUR QUADRANTS. MANN'S CATH IN PLACE INTACT. BLE DISCOLORATION PRESENT. WILL CONTINUE TO MONITOR.
--- NOTE | 2017-05-20 07:20 | NUR ---
REPORT GIVEN TO CK GRIFFIN AM SHIFT. PT IS STABLE AT THIS TIME.
[2017-05-20] MEDS: BUDESONIDE 0.5 MG/2 ML NEBU INH SCH ×2 (07:23→19:25)
--- NOTE | 2017-05-20 07:24 | NUR ---
RECEIVED ON A [employer]oconix[employer]APE R860 VENTILATOR PLUGGED ONTO RED OUTLET TOLERATING WELL WITHOUT ADVERSE REACTIONS NOTED TO A PORTE ENDOTRACHEAL TUBE #7.5 SECURED AT 23 cm WITH AN ANCHOR FAST CUFF PRESSURE CHECKED NOTED AMBU BAG NOTED AT HOB LOC AWAKE AND IRRITABLE BREATH SOUNDS DIFFUSED RALES BILATERAL WITH GOOD CHEST RISE ENDOTRACHEAL SUCTION FOR SMALL THI YELLOW SECRETIONS AIRWAY PATENT
--- NOTE | 2017-05-20 08:29 | NUR ---
DR. GUZMAN PAGED REGARDING PATIENT BEING AGITATED AND TRYING TO PULL ETT. PROPOFOL DRIP INCREASED TO 70 MCG/MIN. AWAITING FOR CALL BACK.
--- NOTE | 2017-05-20 08:45 | NUR ---
DR. GUZMAN CALLED BACK, WILL PLACE RESTRAINTS ON PATIENT.
--- NOTE | 2017-05-20 09:06 | NUR ---
LEFT MESSAGE TO PATIENT'S SISTER PINO TATE AT [phone] REGARDING NEW RESTRAINT ORDER FROM PMD. WILL AWAIT FOR CALL BACK.
[2017-05-20] MEDS: PANTOPRAZOLE 40 MG INJ VIAL IVP SCH (09:07)
[2017-05-20] MEDS: LEVOFLOXACIN 500 MG/D5W PREMIX 100 ML IV SCH (09:09)
[2017-05-20] MEDS: RIFAXIMIN 550 MG TAB PO SCH ×2 (09:09→20:27)
[2017-05-20] MEDS: LACTOBACILLUS RHAMNOSUS GG 1 EACH CAP NG SCH (09:13)
[2017-05-20] MEDS: ENOXAPARIN 30 MG/0.3 ML SYR SUBQ SCH (09:13)
[2017-05-20] MEDS: METHADONE 10 MG TAB NG SCH (09:14)
--- NOTE | 2017-05-20 11:01 | NUR ---
PT SLEEPING IN BED COMFORTABLY. NO ACUTE DISTRESS NOTED. NO CHANGE IN LOC. WILL CONTINUE TO MONITOR.
--- NOTE | 2017-05-20 11:32 | NUR ---
05/20/17 RD FOLLOW UP COMPLETED. PLEASE REFER TO NUTRITION PROGRESS NOTES UNDER CARE ACTIVITY FOR ESTIMATED NUTRITIONAL NEEDS. RD RECOMMENDATIONS: 1. RECOMMEND CONTINUE TF NUTREN PULMONARY @45 MLS/HR WITH WATER FLUSH OF 150MLS Q6HRS. 2. RD TO FOLLOW-UP 2-3 DAYS, HIGH RISK SIMEON LIM MBA, RD
--- NOTE | 2017-05-20 12:25 | NUR ---
VENT CHECK COMPLETED. PT SLEEPING AT THIS TIME. ETT IS SECURE. VENT ALARMS ON AND FUNCTIONING.
--- NOTE | 2017-05-20 12:57 | NUR ---
ORAL CARE PROVIDED. ORAL MUCOSA PINK AND MOIST. KEPT PT CLEAN AND DRY. PT RESTING IN BED. NO CHANGE IN LOC.
[2017-05-20] MEDS: SKINTEGRITY HYDROGEL TP SCH (13:05)
--- NOTE | 2017-05-20 13:15 | NUR ---
SEDATED RESTING WELL WITHOUT PULMONARY DISTRESS NOTED BREATH SOUNDS DIFFUSED RALES BILATERAL WITH GOOD CHEST RISE ENDOTRACHEAL SUCTION FOR NO SPUTUM RETURN AIRWAY PATENT
--- NOTE | 2017-05-20 14:15 | NUR ---
SEEN BY DR. FINN NO NEW ORDER AT THIS TIME. WILL CONTINUE TO FOLOW UP.
[2017-05-20] MEDS: LACTULOSE 20 GM/30 ML UDC PO SCH ×2 (14:33→21:22)
--- NOTE | 2017-05-20 14:34 | NUR ---
PT LYING IN BED AWAKE. ABLE TO FOLLOW SIMPLE COMMANDS. NO CHANGE IN LOC. WILL CONTINUE TO MONITOR.
[2017-05-20 15:09] LABS: HEPATITIS A ANTIBODY IGM Negative (Negative); HEPATITIS B CORE AB TOTAL Positive (Negative); HEPATITIS B SURFACE ANTIBODY Reactive (.); HEPATITIS B SURFACE ANTIGEN Negative (Negative)
--- NOTE | 2017-05-20 16:45 | NUR ---
ORDERED BY DR. RALEIGH GUZMAN WEAN TOLERATED CHANGED MODE CPAP/PS 12 PEEP 5 FIO2 35% LOC QUIET BREATH SOUNDS CLEAR BILATERAL WITH GOOD CHEST RISE AIRWAY PATENT GRAIN DRIER TO MONITOR CK/RN NOTIFIED
--- NOTE | 2017-05-20 17:39 | NUR ---
CATHETER CARE DONE. PT AWAKE RESTING IN BED COMFORTABLY. NO CHANGE IN LOC. WILL CONTINUE TO MONITOR.
--- NOTE | 2017-05-20 17:48 | NUR ---
SEDATED TOLERATING WEANING WELL WITHOUT SOB NOTED BREATH SOUNDS BILATERAL CLEAR APEX TO MID WITH RALES RLL LLL
--- NOTE | 2017-05-20 19:12 | NUR ---
PT RECEIVED FROM [facility] NOTED VENT SETTINGS. PT AWAKE/ALERT, HAS A #7.5 ETT SECURED AT 23 LIP LINE WITH AN ANCHOR FAST. BREATH SOUNDS APPEAR CLEAR, INLINE TX GIVEN ORDERED. PT LAVAGED AND SUCTIONED OF SMALL AMOUNT THIN WHITE SECRETIONS. NO ADVERSE EFFECTS NOTED. VENT ALARMS ON AND AUDIBLE. VENT PLUGGED INTO RED ELECTRICAL OUTLET, AMBU BAG ON VENT.
--- NOTE | 2017-05-20 19:14 | NUR ---
REPORT GIVEN TO NIGHT RN FOR CONTINUITY OF CARE. PATIENT IN STABLE CONDITION.
--- NOTE | 2017-05-20 19:30 | NUR ---
REPORT GIVEN BY AM SHIFT. PT IS SEDATED, AWAKE WHEN CALLING HER NAME.NO S/S OF RESP DISTRESS,NO SOB AT THIS TIME. PT ON CPAP WITH FIO2 AT 35% PRESSURE SUPPORT OF 12 AND PEEP 5 TOLERATING WELL. LUNGS SOUND CLEAR.NO COUGHING NOTED. ETT TO VENT.PER AM SHIFT VERBALIZE TO RT TO START WEANING PT.PICC LINE DOUBLE LUMEN TO SYLVIA. WITH PROPOFOL AT 70 MCG/KG/HR AND 20 MEQ KCL IN 1000 NS AT 100 CC/HR. PICC LINE INTACT WELL WITH GOOD BLOOD RETURN NOTED. PERIPHERAL LINE TO LEFT EXTERNAL JUGULAR SALINE LOCK. INTACT AND FLUSHING WELL.OGT IN PLACE WITH NO RESIDUAL. OGT TO TUBE FEEDING NUTREN PULMONARY AT 45 CC/HR AND H20 AT 150 CC Q 6 HRS TOLERATING WELL.ABD SOFT NON DISTENDED. ACTIVE BOWEL SOUNDS TO ALL QUADRANT. SKIN NON INTACT. LEFT UPPER ARM AND LFA SKIN TEAR. AREA COVER WITH DRY CLEAN DRESSING. PT ON RESTRAINT SKIN INTACT BOTH HAND. RELEASE DURING CARE.F/C INTACT WELL WITH YELLOW CLEAR URINE NOTED.KEPT PT CLEAN AND DRY.CALL LIGHT IN REACH.
[2017-05-20] MEDS ORDERED: LACTULOSE 20 GM/30 ML UDC ONE (21:00)
--- NOTE | 2017-05-20 21:00 | NUR ---
NIGHT MEDS GIVEN TOLERATED WELL.
--- NOTE | 2017-05-20 21:20 | NUR ---
VENT CHECKED. PT QUIET, ORALLY SUCTIONED SM AMOUNT THIN CLEAR SECRETIONS. NO ADVERSE EFFECTS NOTED.
--- NOTE | 2017-05-20 23:06 | NUR ---
VENT CHECKED. PT FIO2 INCREASED TO 45% DUE TO LOW SATURATION (88-89%). PT'S RNTIMMY INFORMED OF CHANGE. PT'S SATURATION BEGAN TO IMPROVE POST CHANGE (91-92%).
--- NOTE | 2017-05-20 23:10 | NUR ---
PER NAYA RT FIO2 INCREASE TO 45 D/T O2 SAT 89-90%.CONTINUE TO MONITOR CLOSELY.
[2017-05-21] VITALS (93 sets, daily range): BP systolic 90–159; BP diastolic 55–98
--- NOTE | 2017-05-21 00:30 | NUR ---
PT SLEEPING WELL.NO S/S OF PAIN OR DISCOMFORT.KEPT AIR WAY CLEAR. PRN SUCTION GIVEN . VAP ORAL CARE GIVEN.
[2017-05-21] MEDS: PROPOFOL 1000 MG/100 ML PREMIX 100 ML IV PRN ×7 (00:38→22:47)
[2017-05-21] MEDS: ALBUTEROL SULFATE/IPRATROPIU 3 ML SOL IH SCH ×4 (01:19→19:14)
--- NOTE | 2017-05-21 01:19 | NUR ---
VENT CHECKED. BREATH SOUNDS CLEAR, INLINE TX GIVEN ORDERED. PT SUCTIONED SMALL AMOUNT THIN WHITE SECRETIONS. FIO2 DECREASED TO 40%, SATS MAINTAINING AT 95-96%. PT'S RN TIMMY AWARE OF CHANGE.
--- NOTE | 2017-05-21 01:20 | NUR ---
RT DECREASE EL01 TO 40 Addendum: 05/21/17 at 0717 by Winnie France RN RT DECREASE THE FI02 TO 40 AND TOLERATED WELL.
[2017-05-21] MEDS: VANCOMYCIN 750 MG in DEXTROSE 5% 250 ML IV SCH ×2 (01:57→14:32)
--- NOTE | 2017-05-21 03:39 | NUR ---
VENT CHECKED. PT AWAKE, FIO2 DECREASED TO 34 Addendum: 05/21/17 at 0355 by Silva Maldonado RT VENT CHECKED. PT AWAKE, FIO2 DECREASED TO 35%, PT'S SATURATION 98%. PT'S RNTIMMY AWARE OF CHANGE. NO ADVERSE EFFECTS NOTED.
--- NOTE | 2017-05-21 04:30 | NUR ---
AM CARE GIVEN, VAP CARE GIVEN. F/C CARE GIVEN. KEPT PT CLEAN AND DRY.CALL LIGHT IN REACH .URINE IS 2300 CC YELLOW CLEAR COLOR.
[2017-05-21] MEDS: methylPREDNISolone SS 40 MG/ML VIAL IVP SCH ×3 (04:40→22:27)
[2017-05-21] MEDS: HYDRAGUARD CREAM TP SCH ×3 (04:44→21:00)
--- NOTE | 2017-05-21 05:30 | NUR ---
PT HAD X1 MEDIUM BM ,LIQUIDS AND GREENISH COLOR. GOOD PERICARE GIVEN. KEPT CLEAN AND DRY.
--- NOTE | 2017-05-21 05:35 | NUR ---
VENT CHECKED. PT HAVING BATH AND LINEN CHANGE AT THIS TIME. NO DISTRESS NOTED.
[2017-05-21 06:24] LABS: HEMOGLOBIN 10.1 g/dL (12.0-16.0)
[2017-05-21 06:32] LABS: HEMATOCRIT 31.2 % (36-48); MEAN CORPUSCULAR HEMOGLOBIN 30 pg (27-31); MEAN CORPUSCULAR HGB CONC 32 g/dL (33-37); MEAN CORPUSCULAR VOLUME 91 fL (80-94); PLATELET COUNT (AUTO) 253 K/uL (140-450); RED BLOOD CELL COUNT(AUTO) 3.43 MIL/uL (4.20-5.40); RED CELL DISTRIBUTION WIDTH 14.5 % (11.6-13.7); WHITE BLOOD COUNT (AUTO) 9.5 K/uL (4.8-10.8)
[2017-05-21 06:45] LABS: CREATININE 0.5 mg/dL (0.6-1.3); POTASSIUM 3.9 mmol/L (3.5-5.1)
[2017-05-21 06:46] LABS: ANION GAP 3.2 (8-16)
[2017-05-21 06:48] LABS: CARBON DIOXIDE 40.7 mmol/L (21-32)
[2017-05-21 06:50] LABS: MAGNESIUM 2.1 mg/dL (1.8-2.4); PHOSPHORUS 4.8 mg/dL (2.5-4.9)
[2017-05-21 07:05] LABS: BASOPHILS % (MANUAL) 1 % (0-2); LYMPHOCYTES % (MANUAL) 12 % (20-46); MONOCYTES % (MANUAL) 5 % (5-12)
[2017-05-21] MEDS: BUDESONIDE 0.5 MG/2 ML NEBU INH SCH ×2 (07:30→19:14)
--- NOTE | 2017-05-21 07:30 | NUR ---
RECEIVED A REPORT FROM GABY WARNER. PT AWAKE AND AGITATED. APPLIED BILATERAL SOFT RESTRAINTS DUE TO ATTEMPTING TO PULL OUT TUBING. ON CONTINUOUS DRIP WITH PROPOFOL ORDERED PER PROTOCOL. DENIES PAIN AT THIS TIME. ETT TO VENT AND CPAP MODE, PS 12, PEEP 5, FiO2 35 NOTED. ORAL TUBE IN PLACE FOR FEEDING AND MEDICATIONS. MANN CATHETER DRAINING CLEAR YELLOW URINE. SR- ST ON THE MONITOR. PICC LINE [id number] TO RT UPPER ARM AND EJ #20G TO LT NECK. SKIN WARM TO TOUCH. WILL CONTINUE TO MONITOR. SAFETY PRECAUTION, BED IN LOW POSITION, CALL LIGHT WITHIN REACH.
--- NOTE | 2017-05-21 07:30 | NUR ---
REPORT GIVEN TO ADRIA GRIFFIN AM SHIFT. MADE AWARE CO2 WAS HIGH 40.7 FROM 39.9. AND WILL PAGE .NO RESP DISTRESS AT HIS TIME.PT IS AWAKE.
--- NOTE | 2017-05-21 07:50 | NUR ---
MADE AWARE THE CO2 RESULT AND NEW ORDER STAT ABG. ORDER NOTED AND CARRIED OUT. RT MADE AWARE. PER MD HE WILL COME ABOUT AN HOUR.
--- NOTE | 2017-05-21 08:40 | NUR ---
RT SPOKE TO DR. MAR REGARDING CRITICAL ABG RESULT AND CHANGED BACK TO AC SETTING FOR VENTILATOR, FiO2 45, TV 500, RR 14, PEEP 5. WILL CONTINUE TO MONITOR.
[2017-05-21] MEDS: POTASSIUM CHL 20 MEQ/NACL 0.9% 1,000 ML IV SCH (08:44)
[2017-05-21] MEDS: LACTOBACILLUS RHAMNOSUS GG 1 EACH CAP NG SCH (09:05)
[2017-05-21] MEDS: PANTOPRAZOLE 40 MG INJ VIAL IVP SCH (09:05)
[2017-05-21] MEDS: RIFAXIMIN 550 MG TAB PO SCH ×2 (09:05→22:52)
[2017-05-21] MEDS: METHADONE 10 MG TAB NG SCH (09:06)
[2017-05-21] MEDS: LEVOFLOXACIN 500 MG/D5W PREMIX 100 ML IV SCH (09:06)
[2017-05-21] MEDS: ENOXAPARIN 30 MG/0.3 ML SYR SUBQ SCH (09:07)
[2017-05-21] MEDS: LACTULOSE 20 GM/30 ML UDC PO SCH ×2 (09:24→22:29)
--- NOTE | 2017-05-21 09:30 | NUR ---
PT TOLERATED MEDICATIONS WELL. WILL CONTINUE TO MONITOR
--- NOTE | 2017-05-21 09:45 | NUR ---
PINO, PT'S SISTER CALLED AND GIVEN AN UPDATE OF PT'S CONDITION.
--- NOTE | 2017-05-21 09:51 | NUR ---
PT'S NIECE AT BEDSIDE.
--- NOTE | 2017-05-21 10:10 | NUR ---
DR. MAR IN TO SEE PT. WILL FOLLOW UP ON ORDERS
--- NOTE | 2017-05-21 12:48 | NUR ---
PT SEDATED AND RASS -4. FLACC 0 AND NO S/SX OF RESPIRATION DISTRESS NOTED. WILL CONTINUE TO MONITOR.
[2017-05-21] MEDS: SKINTEGRITY HYDROGEL TP SCH (13:00)
--- NOTE | 2017-05-21 14:00 | NUR ---
SEDATED, RASS -4 WITH PROPOFOL DRIP. NO S/SX OF RESPIRATORY DISTRESS. WILL CONTINUE TO MONITOR
[2017-05-21] MEDS ORDERED: VANCOMYCIN PER PHARMACY MC PRN (15:00)
--- NOTE | 2017-05-21 16:31 | NUR ---
PAGED DR. MAR REGARDING PT'S URINE GREENISH COLOR AND WAITING FOR CALLBACK.
--- NOTE | 2017-05-21 16:34 | NUR ---
RECEIVED CALLBACK FROM DR. MAR AND NOTIFIED OF GREENISH URINE COLOR. DR. MAR STATED THAT TITRATE PROPOFOL TO DOWN PROTOCOL AND GIVE VERSED IVP FOR AGITATION. WILL FOLLOW UP ON ORDERS.
[2017-05-21] MEDS ORDERED: MIDAZOLAM 2 MG/2 ML VIAL IV PRN (16:40)
--- NOTE | 2017-05-21 19:55 | NUR ---
REPORT TAKEN FROM DAY NURSE WITH RESUME CARE. PT'S ON VENT VIA ETT VENT SETTING WITH FIO1 35% AC14 TV 500 PEEP 5 , ETT SIZE 7.5 , LIP 23 CM WITH TOLERATING WELL.MANN CATH IN SITU & GRAVITY TO FLOOR, UA COLOR WITH GREEN, CLOUDY NOTED. PT'S ON PROPOFOL AT 70 MCG/KG/MIN WITH TOLERATING WELL VIA RIGHT PICC LINE.OG TUBE FEEDING WITH RATE AT 45 MLS PER HOURLY INPROGRESS WITH TOLERATING WELL.
--- NOTE | 2017-05-21 19:55 | NUR ---
REPORT GIVEN AND ENDORSED CARE TO GABY REED. PT STABLE
--- NOTE | 2017-05-21 21:00 | NUR ---
DUE MEDICATION GIVEN ORDERED. NO REACTION TO MEDS.
--- NOTE | 2017-05-21 22:00 | NUR ---
PT'S ASLEEP, EASY TO AROUSE WITH OPEN TO EYE BY CALLING HER NAME .PAIN FREE, NO STRESS NOTED.
--- NOTE | 2017-05-21 23:30 | NUR ---
PT'S FAMILY CALL AND RESPOND PER PROTOCOL,
[2017-05-22] VITALS (30 sets, daily range): BP systolic 91–167; BP diastolic 59–103
--- NOTE | 2017-05-22 00:30 | NUR ---
RT CHANGE ETT DRESSING CHANGED AND PT TOLERATING WELL ON PROPOFOL, NO DISTRESS, NO PAIN AT THIS TIME
[2017-05-22] MEDS: ALBUTEROL SULFATE/IPRATROPIU 3 ML SOL IH SCH ×4 (01:50→18:50)
--- NOTE | 2017-05-22 01:59 | NUR ---
PT RECEIVED BREATHING TREATMENT WITH TOLERATING WELL.
[2017-05-22] MEDS: VANCOMYCIN 750 MG in DEXTROSE 5% 250 ML IV SCH ×2 (02:32→14:00)
[2017-05-22] MEDS: PROPOFOL 1000 MG/100 ML PREMIX 100 ML IV PRN ×5 (02:43→21:19)
--- NOTE | 2017-05-22 03:55 | NUR ---
TOTAL BED BATH GIVEN, ORAL CARE DONE. SKIN CARE DONE .ENINS CHANGED, PT HAD BM X 1 WITH PERIANAL CARE DONE .
--- NOTE | 2017-05-22 05:15 | NUR ---
PT'S RESTING AT HOB @ 30 WITH TOLERATING WELL.
[2017-05-22] MEDS: HYDRAGUARD CREAM TP SCH ×3 (05:38→21:04)
[2017-05-22] MEDS: methylPREDNISolone SS 40 MG/ML VIAL IVP SCH ×3 (05:38→21:00)
--- NOTE | 2017-05-22 06:00 | NUR ---
TOTAL CARE DONE , PT'S RESTING WELL. DUE NMEDS GIVEN
[2017-05-22 06:20] LABS: BASOPHILS # (AUTO) 0.2 K/uL (0.00-0.22); BASOPHILS % (AUTO) 1.3 % (0.0-2.0); EOSINOPHILS # (AUTO) 0.1 K/uL (0-0.4); EOSINOPHILS % (AUTO) 1.1 % (0.0-4.0); HEMATOCRIT 32.8 % (36-48); HEMOGLOBIN 10.6 g/dL (12.0-16.0); LYMPHOCYTES # (AUTO) 1.3 K/uL (2.5-16.5); LYMPHOCYTES % (AUTO) 10.2 % (20.5-51.1); MEAN CORPUSCULAR HEMOGLOBIN 29 pg (27-31); MEAN CORPUSCULAR HGB CONC 32 g/dL (33-37); MEAN CORPUSCULAR VOLUME 91 fL (80-94); MONOCYTES # (AUTO) 1.5 K/uL (0.8-1.0); MONOCYTES % (AUTO) 11.8 % (1.7-9.3); NEUTROPHILS # (AUTO) 9.9 K/uL (1.8-7.7); NEUTROPHILS % (AUTO) 75.6 % (42.2-75.2); PLATELET COUNT (AUTO) 307 K/uL (140-450); RED BLOOD CELL COUNT(AUTO) 3.62 MIL/uL (4.20-5.40); RED CELL DISTRIBUTION WIDTH 14.4 % (11.6-13.7)
--- NOTE | 2017-05-22 06:47 | NUR ---
REC'D PT ON [employer] VENT SETTINGS AC14 VT 500 PEEP 5 FIO2 30% ALARMS ON AND FUNCTIONING PROPERL AMBU BAG AT SIDE OF VENT AND VENT IS PLUGGED INTO RED OUTLET, I\L TXS GIVEN WITH DUONEB 3ML AND PULMICORT 0.5MG WITH NO ADVERSE REACTION POST TX B\S ARE CLEAR AND PT IS ORALLY INTUBATED WITH 7.5 ET TUBE SECURED WITH ANCHOR FAST AT 23 CM MIDLINE AND SKIN INTEGRITY IS INTACT
[2017-05-22 06:48] LABS: ANION GAP 2.9 (8-16); CREATININE 0.6 mg/dL (0.6-1.3); POTASSIUM 3.8 mmol/L (3.5-5.1)
[2017-05-22 06:50] LABS: CARBON DIOXIDE 42.9 mmol/L (21-32)
[2017-05-22 06:51] LABS: MAGNESIUM 2.1 mg/dL (1.8-2.4); PHOSPHORUS 3.9 mg/dL (2.5-4.9)
[2017-05-22] MEDS: BUDESONIDE 0.5 MG/2 ML NEBU INH SCH ×2 (06:57→18:50)
--- NOTE | 2017-05-22 07:30 | NUR ---
REPORT ENDORSE TO DAY NURSE RIVAS - RN WITH RESUME CARE.
--- NOTE | 2017-05-22 07:30 | NUR ---
RECEIVED REPORT FROM PM SHIFT. PT A/O X2-3. RASS -2. BILATERAL PERRLA OBSERVED. DENIES PAIN. DENIES SOB. ABLE TO MAKE SIMPLE NEEDS KNOWN. ETT TO VENT. TOLERATED WELL. RHONCHI AUSCULTATED IN ALL 4 QUADRANT. EQUAL, UNLABORED BREATH OBSERVED. ST ON MONITOR. SKIN TEAR OF L HAND AND FERNY NOTED. DRESSING C/D/I. RED, NONBLANCHABLE SEMICIRCLE RING OBSERVED ON BUTTOCKS. MD NOTIFIED. R EJ 20 GAUGE NOTED. INTACT AND PATENT. R UA PICC NOTED. INTACT AND PATENT. CONTINUE PROPOFOL DRIP ORDERED. TOLERATED WELL. CONTINUE TUBE FEEDING ORDERED. TOLERATED WELL. 0 RESIDUAL NOTED. BOWEL SOUNDS PRESENT X 4 QUADRANT. ABDOMEN SOFT, NONTENDER. MANN CATHETER NOTED. YELLOW, CLEAR URINE IN BAG FALL AND SAFETY PRECAUTION MAINTAINED. NO S/SX OF ACUTE DISTRESS OBSERVED. BED AT LOWEST SETTING. CALL LIGHT WITHIN REACH. WILL CONTINUE TO MONITOR FOR CHANGES.
--- NOTE | 2017-05-22 07:45 | NUR ---
PT NOTED TO HAVE ONE SMALL EPISODE OF LOOSE BM. LINA CARE GIVEN. WILL CONTINUE TO MONITOR.
--- NOTE | 2017-05-22 08:10 | NUR ---
PT APPEARS RESTLESS IN BED. DISCONNECTED SELF FROM VENT. PT C/O SOB. STATED TO PATIENT THE IMPORTANCE OF NOT PULLING ON TUBE OR ANY OTHER LINES. PT STATED UNDERSTANDING AND REMOVED HER HAND FROM THE TUBE.
[2017-05-22] MEDS: LACTOBACILLUS RHAMNOSUS GG 1 EACH CAP NG SCH (08:38)
[2017-05-22] MEDS: ENOXAPARIN 30 MG/0.3 ML SYR SUBQ SCH (08:39)
[2017-05-22] MEDS: RIFAXIMIN 550 MG TAB PO SCH ×2 (08:39→21:03)
[2017-05-22] MEDS: LACTULOSE 20 GM/30 ML UDC PO SCH ×2 (08:39→20:59)
[2017-05-22] MEDS: METHADONE 10 MG TAB NG SCH (08:39)
[2017-05-22] MEDS: PANTOPRAZOLE 40 MG INJ VIAL IVP SCH (08:39)
--- NOTE | 2017-05-22 08:40 | NUR ---
PT OBSERVED WITH MODERATE AMOUNT OF LOOSE BOWEL MOVEMENT ON SHEET. LINA CARE ATTEMPTED. PT STATED SHE WOULD RATHER JUST LAY THERE AND NOT GET CLEANED. BECAME AGGRESSIVE AND SWUNG HER ARM WHEN I ATTEMPTED LINA CARE. WILL TITRATE PROPOFOL ONCE PT CALMS DOWN.
--- NOTE | 2017-05-22 09:23 | NUR ---
vent check, no sxn required at this time, b\s are clear and pt is agitated
[2017-05-22] MEDS: LEVOFLOXACIN 500 MG/D5W PREMIX 100 ML IV SCH (09:42)
--- NOTE | 2017-05-22 10:00 | NUR ---
PT SLEEPING IN BED. NO S/SX OF ACUTE DISTRESS OBSERVED.
--- NOTE | 2017-05-22 11:00 | NUR ---
DR. MAR AT BEDSIDE TO SPEAK WITH FAMILY. WILL F/U WITH NEW ORDERS.
--- NOTE | 2017-05-22 11:21 | NUR ---
vent check, sxn pt small amt of clear secretions, pt is very agitated with family at bedside
[2017-05-22] MEDS ORDERED: Vancomycin Per Pharmacy MC (11:41)
[2017-05-22] MEDS ORDERED: DIL1I IVP (11:41)
[2017-05-22] MEDS ORDERED: DOL10 NG (11:41)
[2017-05-22] MEDS ORDERED: LACT10CA NG (11:41)
[2017-05-22] MEDS ORDERED: ACET-1182 PO (11:41)
[2017-05-22] MEDS ORDERED: IPRA3AMP IH (11:41)
[2017-05-22] MEDS ORDERED: CLON0.1T42 PO (11:41)
[2017-05-22] MEDS ORDERED: [UNRECOGNIZED DRUG - CODE] IV (11:41)
[2017-05-22] MEDS ORDERED: LOV30I SUBQ (11:41)
[2017-05-22] MEDS ORDERED: METH40PD15 IVP (11:41)
[2017-05-22] MEDS ORDERED: ONDA2SOL45 IVP (11:41)
[2017-05-22] MEDS ORDERED: PUL.5N INH (11:41)
[2017-05-22] MEDS ORDERED: PANT40PD7 IVP (11:41)
[2017-05-22] MEDS ORDERED: RIFA550T PO (11:41)
[2017-05-22] MEDS ORDERED: LACT10SO11 PO (11:41)
--- NOTE | 2017-05-22 12:07 | NUR ---
AGITATION OBSERVED. ATTEMPTING TO PULL ON TUBE AND UNABLE TO STAY STILL. PRN VERSED ADMINISTERED ORDERED.
--- NOTE | 2017-05-22 13:15 | NUR ---
PT OBSERVED TO BE AGITATED, ATTEMPTING TO PULL OUT ETT. PT REMOVED HER GOWN AND REFUSED TO PUT CLOTHING ON, REFUSED TO LAY BACK DOWN IN BED. CONTINUING PROPOFOL DRIP ORDERED. NOT APPEARING TO BE EFFECTIVE. URINE IN MANN CATHETER NOTED TO BE GREEN. DR. ZAID KOENIG.
--- NOTE | 2017-05-22 13:17 | NUR ---
VENT CHECK, I\L TX GIVEN WITH DUONEB 3ML WITH NO ADVERSE REACTION POST TX PT WOULD NOT ALLOW RT TO SXN HER PT IS VERY AGITATED TRYING TO GET OUT OF BED
--- NOTE | 2017-05-22 13:25 | NUR ---
PER DR. MAR, WILL START NEW MEDICATION NOW AND CONTINUE PROPOFOL AT SAME DOSE UNTIL ABLE TO TITRATE DOWN.
[2017-05-22] MEDS: SKINTEGRITY HYDROGEL TP SCH (13:35)
[2017-05-22] MEDS ORDERED: QUEtiapine FUMARATE 25 MG TAB NG SCH (14:00)
--- NOTE | 2017-05-22 14:45 | NUR ---
PT NOTED WITH SMALL AMOUNT OF BROWNISH BOWEL MOVEMENT. LINA CARE GIVEN TOLERATED. PT TOLERATED WELL. AGGRESSION NOTED X 1 EPISODE. PT SWUNG AT STAFF. EMPHASIZE TO PATIENT THAT SHE NEEDS TO BE CLEANED AND THAT SHE NEEDS TO KEEP HER ARM TO HERSELF. PT VERBALIZED UNDERSTANDING AND WAS COOPERATIVE.
--- NOTE | 2017-05-22 15:12 | NUR ---
PT RESTING COMFORTABLY IN BED. APPEARS TO BE SLEEPING. NO S/SX OF ACUTE DISTRESS NOTED.
--- NOTE | 2017-05-22 15:30 | NUR ---
SPOKE TO GIOVANY INFANTE MARS. ALL PAPERWORK RECEIVED BY HIM. WILL AWAIT FURTHER INFORMATION.
--- NOTE | 2017-05-22 15:34 | NUR ---
VENT CHECK, NO SXN REQUIRED AT THIS TIME AIRWAY IS PATENT AND PT IS RESTING NOW
--- NOTE | 2017-05-22 16:00 | NUR ---
PT SLEEPING IN BED. NO S/SX OF ACUTE DISTRESS NOTED.
--- NOTE | 2017-05-22 17:00 | NUR ---
FRIEND AT BEDSIDE TO SEE PT. NO S/SX OF ACUTE DISTRESS NOTED.
--- NOTE | 2017-05-22 17:11 | NUR ---
VENT CHECK, PT SLEEPING NO SXN REQUIRED AND AIRWAY IS PATENT
--- NOTE | 2017-05-22 18:00 | NUR ---
PATIENT NOTED WITH LOOSE BM. LINA CARE GIVEN. TOLERATED WELL.
--- NOTE | 2017-05-22 19:12 | NUR ---
REPORT GIVEN TO GABY REED. PT IS STABLE.
--- NOTE | 2017-05-22 19:12 | NUR ---
REPORT TAKEN FROM DAY NURSE ABIEL - RN WITH RESUME CARE, PT'S STILL ON AC 14, TV 500, PEEP 5 FIO2 30% VIA ETT 7.5, LIP 23 CM WITH TOLERATING WELL. PT ALREADY START WITH SEROQUEL 50 MG TWICE A DAY WITH WORKING WELL WITH PT MOOD. STILL CONTINUE WITH IV DRIP PROPOFOL @ 55 MCG/KG/MIN IN PROGRESS VIA RT UPPER PICC LINE, LINE PATENT. MANN CATH GRAVITY TO FLOOR .
--- NOTE | 2017-05-22 20:00 | NUR ---
REPOSITION DONE, RENDING CARE DONE , ORAL CARE DONE , WITH LOTS OF WHITISH MUCOUS NOTED. MANN GRAVITY TO FLOOR
[2017-05-22] MEDS: QUEtiapine FUMARATE 25 MG TAB NG SCH (21:03)
--- NOTE | 2017-05-22 22:00 | NUR ---
SKIN CARE DONE ;ENIMS , BEDSHEET CHANGED . KEEP HOB 30 UP WITH TOLERATING WELL.
--- NOTE | 2017-05-22 23:00 | NUR ---
REPORT RECEIVED FROM GABY REED. PT IS ON PROPOFOL @50 MCG/KG/MIN TO MEET RASS -4. PERRL. ETT TO VENT AC 14, FIO2 30, TC 500, PEEP 5. OGT TO TUBE FEEDING. NO RESIDUAL NOTED. BILATERAL LUNG SOUNDS DIMINISHED. S1 AND S2 HEART HEARD WITHOUT ABNORMAL HEART SOUNDS. BOWEL SOUNDS HEARD FROM ALL 4 QUAD. PICC LINE TO SYLVIA WITH DOUBLE LUMEN AND REJ SALINE LOCK 20G. ALL PATENT AND ASYMPTOMATIC. FERNY AND LEFT WRIST WITH DRESSING DRY AND INTACT. BILATERAL BUTTOCKS BLANCHABLE REDNESS NOTED. MANN CATHETER DRAINING CLEAR GREENISH YELLOW URINE VIA GRAVITY. FLACC=0. VS STABLE AND NOT ACUTE DISTRESS NOTED. WILL CONTINUE TO MONITOR.
--- NOTE | 2017-05-22 23:03 | NUR ---
REPORT ENDORSE TO ANA - RN WITH RESUME CARE. PT'S ASLEEP, ON VENT SETTING AT AC 14, TV 500, PEEP 5 FIO2 30% VIA ETT 7.5, LIP 23 CM UNDER CONTROL BY IV DRIP PROPOFOL T 50 MCG/KG/MIN AT 18.2 MLS PER HOUR VIA PICC LINE AT RIGHT UPPER ARM WITH TOLERATING WELL. MANN CATH IN SITU AND GRAVITY TO FLOOR, URINE COLOR LIGHT YELLOW WITH MILD CLOUDY. HAD BM X 1 WITH SMEAR TO SHEET ONLY. NO RESTRAINTS, SKIN TEAR WITH DRESSING INTACT AT LEFT UPPER ARM AND LEFT WRIST. SKIN REDNESS BEDPAN RING GETTING BETTER. PT'S ASLEEP, COMFORTABLE WITH RASS -3, TOLERATED.
[2017-05-23] VITALS (101 sets, daily range): BP systolic 62–169; BP diastolic 37–91
--- NOTE | 2017-05-23 | NUR ---
NOTED RASS +1. TITRATED PROPOFOL TO 55 MCG/KG/MIN.
--- NOTE | 2017-05-23 00:15 | NUR ---
RASS STILL +1. TITRATED PROPOFOL TO 60 MCG/KG/MIN.
--- NOTE | 2017-05-23 00:30 | NUR ---
RASS STILL +1. TITRATED PROPOFOL TO 65 MCG/KG/MIN TO MEET -4.
--- NOTE | 2017-05-23 00:45 | NUR ---
RASS +1. TITRATED PROPOFOL TO MEET RASS -4 TO 70 MCG/KG/MIN.
--- NOTE | 2017-05-23 01:00 | NUR ---
RASS ACHIEVED TO -4 AT THIS TIME WITH PROPOFOL @ 70MCG/KG/MIN. VS STABLE. WILL CONTINUE TO MONITOR.
[2017-05-23] MEDS: ALBUTEROL SULFATE/IPRATROPIU 3 ML SOL IH SCH ×4 (01:23→19:50)
[2017-05-23] MEDS: VANCOMYCIN 750 MG in DEXTROSE 5% 250 ML IV SCH (02:00)
[2017-05-23] MEDS: PROPOFOL 1000 MG/100 ML PREMIX 100 ML IV PRN ×5 (02:06→22:34)
[2017-05-23] MEDS: methylPREDNISolone SS 40 MG/ML VIAL IVP SCH ×3 (04:17→20:09)
[2017-05-23] MEDS: HYDRAGUARD CREAM TP SCH ×3 (04:18→20:11)
--- NOTE | 2017-05-23 04:35 | NUR ---
MEDICATION ADMINISTERED ORDERED. SKIN CARE AND AM CARE PROVIDED. PT RASS -4 ON PROPOFOL. FLACC=0. ON CONTINUOUS CARDIAC MONITORING AND NO ACUTE DISTRESS NOTED. ALL SAFETY PRECAUTIONS ARE IN PLACE.
[2017-05-23 05:14] LABS: BASOPHILS # (AUTO) 0.1 K/uL (0.00-0.22); BASOPHILS % (AUTO) 1.7 % (0.0-2.0); EOSINOPHILS % (AUTO) 0.3 % (0.0-4.0); HEMATOCRIT 29.4 % (36-48); HEMOGLOBIN 9.4 g/dL (12.0-16.0); LYMPHOCYTES # (AUTO) 0.6 K/uL (2.5-16.5); MEAN CORPUSCULAR HEMOGLOBIN 29 pg (27-31); MEAN CORPUSCULAR HGB CONC 32 g/dL (33-37); MEAN CORPUSCULAR VOLUME 91 fL (80-94); MONOCYTES # (AUTO) 0.7 K/uL (0.8-1.0); MONOCYTES % (AUTO) 7.6 % (1.7-9.3); NEUTROPHILS # (AUTO) 7.3 K/uL (1.8-7.7); NEUTROPHILS % (AUTO) 83.4 % (42.2-75.2); PLATELET COUNT (AUTO) 275 K/uL (140-450); RED BLOOD CELL COUNT(AUTO) 3.24 MIL/uL (4.20-5.40); RED CELL DISTRIBUTION WIDTH 14.4 % (11.6-13.7)
--- NOTE | 2017-05-23 05:30 | NUR ---
AM CARE PROVIDED. VS STABLE. NO ACUTE DISTRESS NOTED. PROPOFOL INFUSING WITH RASS -4. ALL SAFETY PRECAUTIONS ARE IN PLACE. WILL CONTINUE TO MONITOR.
[2017-05-23 05:43] LABS: ANION GAP 1.4 (8-16); CREATININE 0.5 mg/dL (0.6-1.3); POTASSIUM 3.9 mmol/L (3.5-5.1)
[2017-05-23 05:45] LABS: PHOSPHORUS 4.7 mg/dL (2.5-4.9)
[2017-05-23 05:55] LABS: CARBON DIOXIDE 40.5 mmol/L (21-32)
[2017-05-23 06:25] LABS: WHITE BLOOD COUNT (AUTO) 8.7 K/uL (4.8-10.8)
--- NOTE | 2017-05-23 07:20 | NUR ---
RECEIVED REPORT FROM [facility] SHIFT. PT LYING IN BED AWAKE. ON ETT TO VENT WITH VENT SETTING A/C VC FIO2 30% VT 500 R 14 PEEP 5. SKIN DRY AND WARM TO TOUCH. PUPILS REACTIVE TO LIGHT. OGTUBE IN PLACE. LEFT EJ IN PLACE INTACT. DRESSING ON LEFT UPPER ARM AND LEFT WRIST, INTACT. . RIGHT UPPER ARM PERIPHERAL LINE DOUBLE LUMEN INTACT. LUNGS SOUND DIMINISHED ON AUSCULTATION. BOWEL SOUND PRESENT IN ALL FOUR QUADRANTS. MANN'S CATH IN PLACE DRAINING YELLOW URINE VIA GRAVITY. SKIN DISCOLORATION ON BLE. WILL CONTINUE TO MONITOR. Addendum: 05/23/17 at 0819 by Elise Randle RN RECEIVED REPORT FROM [facility] SHIFT. PT LYING IN BED AWAKE. ON ETT TO VENT WITH VENT SETTING A/C VC FIO2 30% VT 500 R 14 PEEP 5. SKIN DRY AND WARM TO TOUCH. PUPILS REACTIVE TO LIGHT. OGTUBE IN PLACE. LEFT EJ IN PLACE INTACT. DRESSING ON LEFT UPPER ARM AND LEFT WRIST, INTACT. . RIGHT UPPER ARM PICC LINE DOUBLE LUMEN INTACT. LUNGS SOUND DIMINISHED ON AUSCULTATION. BOWEL SOUND PRESENT IN ALL FOUR QUADRANTS. MANN'S CATH IN PLACE DRAINING YELLOW URINE VIA GRAVITY. SKIN DISCOLORATION ON BLE. WILL CONTINUE TO MONITOR.
--- NOTE | 2017-05-23 07:23 | NUR ---
REC'D PT ON CARESCAPE VENT SETTINGS AC14 VT 500 PEEP 5 FIO2 30% ALARMS ON AND FUNCTIONING PROPERLY, AMBU BAG AT SIDE OF VENT ANT VENT IS PLUGGED INTO RED OUTLET, I\L TXS GIVEN WITH DUONEB 3ML AND PULMICORT 0.5MG WITH NO ADVERSE REACTIONS POST TX B\S ARE CLEAR BILATERALLY, SXN PT SMALL AMT OF CLEAR SECRETIONS, PT IS ORALLY INTUBATED WITH 7.5 ET TUBE AT 24 CM MIDLINE AND SKIN INTEGRITY IS INTACT PT IS SLEEPING
[2017-05-23] MEDS: BUDESONIDE 0.5 MG/2 ML NEBU INH SCH ×2 (07:31→19:50)
--- NOTE | 2017-05-23 07:32 | NUR ---
REPORT GIVEN TO MORNING NURSE, GABY MAGALLON FOR CONTINUITY OF CARE. NO ACUTE DISTRESS NOTED. ALL SAFETY PRECAUTIONS ARE IN PLACE.
--- NOTE | 2017-05-23 08:59 | NUR ---
VENT CHECK, NO SXN REQUIRED AT THIS TIME, PT IS AWAKE WITH NO SIGNS OF DISTRESS NOTED
[2017-05-23] MEDS: LACTOBACILLUS RHAMNOSUS GG 1 EACH CAP NG SCH (09:07)
[2017-05-23] MEDS: PANTOPRAZOLE 40 MG INJ VIAL IVP SCH (09:07)
[2017-05-23] MEDS: LEVOFLOXACIN 500 MG/D5W PREMIX 100 ML IV SCH (09:07)
[2017-05-23] MEDS: QUEtiapine FUMARATE 25 MG TAB NG SCH ×2 (09:09→20:09)
[2017-05-23] MEDS: METHADONE 10 MG TAB NG SCH (09:09)
[2017-05-23] MEDS: RIFAXIMIN 550 MG TAB PO SCH ×2 (09:09→20:09)
[2017-05-23] MEDS: LACTULOSE 20 GM/30 ML UDC PO SCH ×2 (09:09→20:09)
[2017-05-23] MEDS: ENOXAPARIN 30 MG/0.3 ML SYR SUBQ SCH (09:11)
--- NOTE | 2017-05-23 09:51 | NUR ---
PT AWAKE RESTING IN BED COMFORTABLY. NO ACUTE DISTRESS NOTED. WILL CONTINUE TO MONITOR. Addendum: 05/23/17 at 1108 by Elise Randle RN PT ABLE TO FOLLOW SIMPLE COMMANDS. NO ANY ATTEMPTS TO PULLTHE TUBING.
--- NOTE | 2017-05-23 10:24 | NUR ---
VENT CHECK, SXN NO NEEDED AT THIS TIME AIRWAY IS PATENT AND PT IS SLEEPING WITH NO SIGNS OF DISTRESS NOTED AT THIS TIME
--- NOTE | 2017-05-23 11:10 | NUR ---
CM NOTE CONCURRENT REVIEW FAXED TO [facility] / FAX# [phone], ATTN: NICOLAS #[phone]
--- NOTE | 2017-05-23 11:15 | NUR ---
CM NOTE MARS JACOBS MADE AWARE OF [facility] EVAL.
[2017-05-23] MEDS: SKINTEGRITY HYDROGEL TP SCH (12:41)
--- NOTE | 2017-05-23 13:20 | NUR ---
PT'S SISTER, PINO, AND NIECE TRACE AT BEDSIDE, WERE UPDATED ON PT. FLACC 0. RASS -4. NO SOB OR OTHER SIGNS OF ACUTE DISTRESS NOTED AT THIS TIME. WILL CONTINUE TO MONITOR.
--- NOTE | 2017-05-23 13:23 | NUR ---
VENT CHECK I\L TX GIVEN WITH DUONEB 3ML WITH NO ADVERSE REACTION POST TX B\S ARE CLEAR AND SXN PT SMALL AMT OF CLEAR SECRETIONS, PT IS SLEEPING NOW
--- NOTE | 2017-05-23 13:52 | NUR ---
PT SLEEPING IN BED COMFORTABLY. ON CONTINUOUS MONITORING.
[2017-05-23] MEDS ORDERED: VANCOMYCIN 750 MG in NACL 0.9% 250 ML IV SCH (14:00)
--- NOTE | 2017-05-23 15:29 | NUR ---
05/23/17 RD FOLLOW UP COMPLETED PLEASE REFER TO NUTRITION PROGRESS NOTE UNDER CARE ACTIVITY FOR ESTIMATED NUTRITION NEEDS. 1. CONTINUE NUTRITION SUPPORT NUTREN PULMONARY AT 45 ML/HR TOLERATED --THIS MEETS >95% OF ESTIMATED KCAL AND PROTEIN NEEDS 2. RD TO FOLLOW-UP 2-3 DAYS, HIGH RISK MEGHANA AQUINO, NEY
--- NOTE | 2017-05-23 15:55 | NUR ---
SCOTTY VALENZUELA AT [facility] AUTH FOR [facility] IS [id number].
--- NOTE | 2017-05-23 16:00 | NUR ---
PAGED EUNICE VELEZ ON-CALL DR. ROLAND REGARDING CONTINUATION OF LEVAQUIN. AWAITING CALL BACK.
--- NOTE | 2017-05-23 16:04 | NUR ---
NO CHANGE OF CONDITION AT THIS TIME. VS STABLE. FLACC 0. RASS -4. NO S/SX OF ACUTE DISTRESS NOTED. HOB 30 DEGREES. SAFETY MEASURES ENSURED. WILL CONTINUE TO MONITOR.
--- NOTE | 2017-05-23 16:20 | NUR ---
PLACED A CALL TO [facility], ABLE TO SPEAK TO KACEY. 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
--- NOTE | 2017-05-23 16:25 | NUR ---
RECEIVED A CALL FROM REYNALDO AT [facility] REGARDING PT'S BED NUMBER, ICU-7 AT [place], AND A PHONE NUMBER TO GIVE REPORT.
--- NOTE | 2017-05-23 16:30 | NUR ---
CALLED [facility] FOR REPORT. RN AT [place] STATED TO CALL BACK DUE TO BEING SHORT OF STAFF. WILL FOLLOW UP.
--- NOTE | 2017-05-23 17:00 | NUR ---
PAGED EUNICE VELEZ ON-CALL , DR. WOOD REGARDING CONTINUATION OF IV ABX, ASHLEYUIN. AWAITING CALL BACK. WILL FOLLOW UP.
--- NOTE | 2017-05-23 17:29 | NUR ---
VENT CHECK, NO SXN REQUIRED PT IS SLEEPING
--- NOTE | 2017-05-23 17:51 | NUR ---
PATIENT'S SISTER PINO TATE MADE AWARE OF PATIENT TRANSFERRING TO [facility] ICU 7.
--- NOTE | 2017-05-23 18:42 | NUR ---
CALLED [facility] FOR REPORT, GABY VU STATED TO CALL BACK DURING [employer] SET UP PERSON FOR REPORT. THEY ARE CURRENTLY SHORT STAFF AND NO ONE IS ABLE TO TAKE REPORT AT THIS TIME. WILL FOLLOW UP.
--- NOTE | 2017-05-23 19:27 | NUR ---
REPORT GIVEN TO CLIN ASST RN FOR CONTINUITY OF CARE. PT IS IN STABLE CONDITION.
--- NOTE | 2017-05-23 19:30 | NUR ---
RECEIVED REPORT FROM GABY MAGALLON. PT AWAKE. ATTEMPTING TO COMMUNICATE WITH STAFF WITH HAND GESTURES AND MOUTHING WORDS. AFEBRILE. RASS 0. RECEIVED PT ON PROPOFOL AT 55MCG/KG AND TITRATED TO 60MCG/KG TO ACHIEVE GOAL RASS -4. SYLVIA PICC LINE PATENT AND ASYMPTOMATIC. FLUSHING WELL AND DRESSING INTACT. PT HAS LEFT EJ PATENT AND ASYMPTOMATIC. MANN CATHETER IN PLACE DRAINING YELLOW AND CLEAR URINE. ETT TO VENT SETTINGS A/C VC FIO2 30%, RR 14, TV 500, AND PEEP 5. LUNG SOUNDS CLEAR BUT DIMINISHED AT THE BASES. HEART SOUNDS S1+S2. PULSES PALPABLE IN ALL EXTREMITIES. BOWEL SOUNDS ACTIVE IN ALL QUADRANTS. NGT TO FEEDING. NO RESIDUAL NOTED. VS STABLE AT THIS TIME. ALL SAFETY PRECAUTIONS IN PLACE. BED AT LOW POSITION. CALL LIGHT WITHIN REACH. WILL CONTINUE TO MONITOR PT.
--- NOTE | 2017-05-23 20:36 | NUR ---
SCHEDULED MEDICATIONS ADMINISTERED. PT TOLERATED WELL. NO RESIDUAL NOTED. NGT TO FEEDING. SYLVIA PICC LINE FLUSHING WELL. NO C/O PAIN. KEPT HOB AT 30 DEGREES. ALL SAFETY PRECAUTIONS IN PLACE. CALL LIGHT WITHIN REACH. Addendum: 05/23/17 at 2112 by Thomas Sharif RN PT HAS OGT TO FEEDING, NOT NGT.
--- NOTE | 2017-05-23 21:10 | NUR ---
REPORT GIVEN TO ASHLY FROM [facility] [place] @[phone]. [facility] ETA 2200. PT VS STABLE AT THIS TIME. FLACC=0. ALL SAFETY PRECAUTIONS ARE IN PLACE.
--- NOTE | 2017-05-23 22:45 | NUR ---
[facility] CRIT[facility] ARRIVED WITH 2 EMT AND 1 RN. REPORT GIVEN TO CHEYENNE CHRISTOPHER RN FROM [facility]. PT HAS NO BELONGINGS. DISCHARGE PAPERS GIVEN TO CHEYENNE. PT ON PROPOFOL DRIP @ 65 MCG/KG/MIN. PT VS STABLE.
--- NOTE | 2017-05-23 23:00 | NUR ---
PT LEFT WITH [facility] TRANSPORT VIA GURNEY. PROPOFOL RUNNING AT 65 MCG/KG/HR AT [facility]'S PORTABLE IV PUMP. VENT IS CONNECTED TO [facility]'S PORTABLE VENT. PT STABLE UPON DEPARTURE OF THE UNIT.
--- NOTE | 2017-05-23 23:16 | NUR ---
PATIENT WAS TRANSFERRED TO [facility] VIA PARAMEDICS, WENT TURN OFF
--- NOTE | 2017-05-23 23:45 | NUR ---
[facility]ITICAL [facility] ARRIVED WITH 2 EMT AND 1 RN. REPORT GIVEN TO CHEYENNE CHRISTOPHER RN FROM [facility]. PT HAS NO BELONGINGS. DISCHARGE PAPERS GIVEN TO CHEYENNE. PT ON PROPOFOL DRIP @ 65 MCG/KG/MIN. PT VS STABLE. Addendum: 05/24/17 at 0042 by Maris Teran RN AMEND TIME OF EVENT TO 0440
== END 2017-05-23 23:00 | DRG 917 ==
LOC: MED 16:27 → MIC 17:23 → MTU 05-17 13:55 → MIC 05-18 01:50
PROVIDERS: ADMIT Internal Medicine Pulmonary Disease; ATTEND Internal Medicine Pulmonary Disease
PROC: 5A1955Z Respiratory Ventilation, Greater than 96 Consecutive Hours (ICD-10-PCS; principal; 2017-05-13)
DX: T40.1X1A Poisoning by heroin, accidental (unintentional), initial encounter (principal); A41.9 Sepsis, unspecified organism; J96.20 Acute and chronic respiratory failure, unspecified whether with hypoxia or hypercapnia; J69.0 Pneumonitis due to inhalation of food and vomit; G93.41 Metabolic encephalopathy; J44.9 Chronic obstructive pulmonary disease, unspecified; J96.21 Acute and chronic respiratory failure with hypoxia; J96.22 Acute and chronic respiratory failure with hypercapnia; B19.10 Unspecified viral hepatitis B without hepatic coma; Z88.0 Allergy status to penicillin; Z88.2 Allergy status to sulfonamides; Z88.8 Allergy status to other drugs, medicaments and biological substances; B19.20 Unspecified viral hepatitis C without hepatic coma; F41.9 Anxiety disorder, unspecified; I11.0 Hypertensive heart disease with heart failure; I50.9 Heart failure, unspecified; Z87.891 Personal history of nicotine dependence; Z99.81 Dependence on supplemental oxygen
CPT/HCPCS: 31500; 36415; 36600; 70450; 71010; 76705; 80048; 80053; 80076; 80202; 80305; 81001; 82140; 82150; 82550; 82803; 82948; 83036; 83605; 83690; 83735; 83880; 84100; 84484; 85025; 85610; 85730; 86704; 86706; 86708; 86709; 86803; 87040; 87070; 87081; 87205; 87340; 93005; 94002; 94003; 94640; 96365; 96375; 97110; 97140; 99291; A6248; C1751; C9113; G0480; G0482; J0610; J0692; J1170; J1650; J1956; J2250; J2310; J2405; J2704; J2920; J2930; J3370; J3475; J3490; J7030; J7060; J7120; J7613; J7620; J7626; J7644; Q0092

== ENCOUNTER 2018-08-05 17:25 | Inpatient (IN) | payer OTHER ==
[~2018-08-05] VITALS: Ht 160 cm; Wt 43.5 kg
[~2018-08-05 17:25] MED LIST changes: +ACET-1182 PO; +ALBU3SOL83 IH; +CLON0.1T42 PO; +DIL1I IVP; +DOL10 NG; +LACT10CA NG; +LACT10SO11 PO; +LOV30I SUBQ; +METH-1625 PO; +METH40PD15 IVP; +ONDA2SOL45 IVP; +PANT40PD7 IVP; +PUL.5N INH; +RIFA550T PO; +Vancomycin Per Pharmacy MC; +[UNRECOGNIZED DRUG - CODE] IV
--- NOTE | 2018-08-05 17:25 | NUR ---
PATIENT BIBA TO BED 7 AT THIS TIME.
[2018-08-05 17:30] VITALS: BP 120/98
[2018-08-05] MEDS ORDERED: methylPREDNISolone SS 125 MG/2 ML VIAL IVP ONE (17:30)
[2018-08-05] MEDS ORDERED: NACL 0.9% 500 ML IV SCH (17:30)
[2018-08-05] MEDS ORDERED: ALBUTEROL SULFATE/IPRATROPIU 3 ML SOL IH ONE (17:30)
--- NOTE | 2018-08-05 17:35 | NUR ---
PATIENT BIBA W/C/O SHORTNESS OF BREATH X 2 DAYS. PER EMS PT PASSED OUT 2 DAYS AGO INSIDE HER CAR BUT REFUSES TO BE BROUGHT TO ER. ACCESSORY MUSCLES USED,TACHYPNEIC. AAOX4;DENIES CP/NAUSEA OR VOMITING;PATIENT STATES PAIN OF 0/10 AT THIS TIME;PATIENT POSITIONED FOR COMFORT; HOB ELEVATED; BEDRAILS UP X2; BED DOWN. ER MD MADE AWARE OF PT STATUS.
--- NOTE | 2018-08-05 17:48 | NUR ---
ADMITTING DX: DYSPNEA/RESIRAORY DISTRESS HHN THERAPY GIVEN ORDERED ENCOURGAED PATIENT FOR INTERMITTENT DEEP REATHING DURING THERAPY TOLERATED THERAPY WELL WITHOUT ADVERSE REACTIONS NOTED
--- NOTE | 2018-08-05 17:55 | NUR ---
ABG CRITICAL RESULTS GIVEN TO @5761 PHYSICIAN REQUESTS PT BE PLACED ON BIPAP 12/, R14, FIO2 30%. PT PLACED ON BIPAP WITH RT PETER BEDSIDE. PT TOLERATING SETTINGS WELL.
[2018-08-05 18:40] LABS: HEMATOCRIT 39.5 % (36-48); MEAN CORPUSCULAR HEMOGLOBIN 30 pg (27-31); MEAN CORPUSCULAR HGB CONC 30 g/dL (33-37); PLATELET COUNT (AUTO) 109 K/uL (140-450); RED BLOOD CELL COUNT(AUTO) 4.03 MIL/uL (4.20-5.40); RED CELL DISTRIBUTION WIDTH 14.3 % (11.6-13.7); WHITE BLOOD COUNT (AUTO) 5.7 K/uL (4.8-10.8)
[2018-08-05 19:02] LABS: CREATININE 0.6 mg/dL (0.6-1.3); POTASSIUM 4.2 mmol/L (3.5-5.1)
[2018-08-05 19:03] LABS: ALBUMIN 3.3 g/dL (3.4-5.0); TOTAL BILIRUBIN 0.4 mg/dL (0.0-1.0)
[2018-08-05 19:07] LABS: PROTHROMBIN TIME 9.9 secs (10.8-13.4)
--- NOTE | 2018-08-05 19:10 | NUR ---
ASSUMED CARE OF PT AT THIS TIME. PT AWAITS MD DISPOSITION. TABITHA. JENNIFER. WILL CONTINUE TO MONITOR.
[2018-08-05] MEDS ORDERED: AZITHROMYCIN 500 MG in DEXTROSE 5% 250 ML IV ONE (19:15)
[2018-08-05 19:20] LABS: ANION GAP -12.8 (8-16)
[2018-08-05] MEDS ORDERED: ALBUTEROL SULFATE/IPRATROPIU 3 ML SOL IH PRN (19:35)
[2018-08-05] MEDS ORDERED: ACETAMINOPHEN 325 MG TAB PO PRN (19:35)
[2018-08-05] MEDS ORDERED: ONDANSETRON 4 MG/2 ML VIAL IVP PRN (19:35)
[2018-08-05 20:00] LABS: LYMPHOCYTES % (MANUAL) 13 % (20-46); MONOCYTES % (MANUAL) 2 % (5-12)
--- NOTE | 2018-08-05 20:00 | NUR ---
RECEIVED PT FROM ER VIA GURNEY. PT WAS AWAKE, ALERT, AND ORIENTED. ABLE TO MAKE NEEDS KNOWN. VS STABLE. DENIES PAIN AT THIS TIME. RECEIVED PT ON OXYGEN VIA NC BUT RT AT BEDSIDE TO CONNECT PT ON BIPAP. WHEEZING AUSCULTATED. NO SOB NOTED. PT DOES DENIES DIFFICULTY BREATHING. S1+S2 HEARD. PULSES ARE PALPABLE IN ALL EXTREMITIES. SR ON MONITOR. ABDOMEN ROUND, SOFT AND NONDISTENDED. BS ACTIVE IN ALL QUADRANTS. PT CONTINENT AND ABLE TO USE BEDPAN. RECEIVED PT WITH IV ACCESS ESTABLISHED. PER REPORT NO IV MEDICATIONS GIVEN. SKIN IS WARM, DRY AND INTACT. CALL WITHIN REACH. BED AT LOWEST POSSIBLE POSITION. WILL CONTINUE TO MONITOR PT.
--- NOTE | 2018-08-05 20:00 | NUR ---
Patient will be admitted to care of Joe FIGUEROA. Admitted to ICU. Will go to room 1. Belongings list completed. Report to GABY JACKSON.
--- NOTE | 2018-08-05 20:03 | NUR ---
RECEIVED A CALL FROM DR. MARTE FOLLOWING UP REGARDING THE PATIENT. UPDATED DR. MARTE REGARDING PT'S CONDITION. RECEIVED BIPAP SETTINGS ORDER. CLARIFIED THE ABG ORDER WELL. INFORMED RT REGARDING THE NEW ORDERS. WILL CONTINUE TO MONITOR PT AND PAGE DR. MARTE APPROPRIATE.
--- NOTE | 2018-08-05 20:12 | NUR ---
transfer pt from er to icu 1 via nasal cannula 2 l, without any incidents. placed pt on the bipap 16/6, rr 18, 30%, per dr MARTE, AND ABG IN ONE HOUR
[2018-08-05 20:33] LABS: APPEARANCE,URINE CLEAR (CLEAR); BILIRUBIN,URINE NEGATIVE (NEGATIVE); BLOOD, URINE 1+ (NEGATIVE); COLOR,URINE YELLOW (YELLOW); LEUKOCYTE ESTERASE ,URINE NEGATIVE (NEGATIVE); NITRITE, URINE NEGATIVE (NEGATIVE); UGLUCOSE NEGATIVE (NEGATIVE)
[2018-08-05 20:39] LABS: RBC,URINE 0-5 (RARE) /HPF (0-5); WBC,URINE 0-5 (RARE) /HPF (0-5)
[2018-08-05] MEDS: methylPREDNISolone SS 40 MG/ML VIAL IVP SCH (21:00)
[2018-08-05] MEDS: NACL 0.9% 1,000 ML IV SCH (21:00)
[2018-08-05 21:33] VITALS: BP 128/88
--- NOTE | 2018-08-05 21:47 | NUR ---
PAGED DR. MARTE TO FOLLOW-UP REGARDING MEDICATIONS ORDERED FROM ER AND ABG RESULTS
--- NOTE | 2018-08-05 21:55 | NUR ---
DR. MARTE CALLED BACK, RECEIVED NEW ORDERS. NOTED AND CARRIED OUT Addendum: 08/06/18 at 0556 by Thomas Sharif RN CLARIFIED HEPARIN ORDER WITH DR. MARTE DUE TO PLATELETS AT LOW 100S, OKAY TO GIVE PER DR. MARTE.
[2018-08-05 22:00] VITALS: BP 118/79
[2018-08-05] MEDS ORDERED: AZITHROMYCIN 500 MG in DEXTROSE 5% 250 ML IV SCH (23:00)
[2018-08-05 23:12] VITALS: BP 117/76
[2018-08-06] VITALS (8 sets, daily range): BP systolic 125–159; BP diastolic 66–95
[2018-08-06] MEDS ORDERED: AZITHROMYCIN 500 MG INJ VIAL IV ONE (00:09)
--- NOTE | 2018-08-06 00:58 | NUR ---
PT LAYING IN BED. EYES ARE CLOSED. RESPIRATIONS ARE EVEN AND UNLABORED. NO SOB NOTED. VS STABLE ON MONITOR. PT AROUSABLE TO NAME. PT DOES NOT HAVE ANY C/O ANY DISCOMFORT AT THIS TIME.
--- NOTE | 2018-08-06 03:01 | NUR ---
RESPIRATIONS ARE EVEN AND UNLABORED. PT STILL ON BIPAP. VS STABLE AT THIS TIME. PT WAS ABLE TO REPOSITION SELF. NO CHANGE IN CONDITION. PT REMAINS ALERT AND ORIENTED. ALL SAFETY PRECAUTIONS ARE IN PLACE. BED AT LOWEST POSSIBLE POSITION. WILL CONTINUE TO MONITOR PT.
--- NOTE | 2018-08-06 04:50 | NUR ---
PT AWAKE AT THIS TIME. DENIES ANY DISCOMFORT. VS STABLE. RESPIRATIONS ARE EVEN AND UNLABORED. NO SIGNS OF DISTRESS OR SOB NOTED. PT STILL ASKING IF SHE CAN HAVE FOOD, INFORMED HER AGAIN THAT THE PHYSICIAN DOES NOT WANT HER TO HAVE ANYTHING TO EAT AT THE MOMENT.
[2018-08-06] MEDS: methylPREDNISolone SS 40 MG/ML VIAL IVP SCH (05:23)
[2018-08-06 05:53] LABS: BASOPHILS % (AUTO) 0.2 % (0.0-2.0); EOSINOPHILS % (AUTO) 0.1 % (0.0-4.0); HEMATOCRIT 37.1 % (36-48); HEMOGLOBIN 11.6 g/dL (12.0-16.0); LYMPHOCYTES # (AUTO) 0.6 K/uL (2.5-16.5); MEAN CORPUSCULAR HEMOGLOBIN 30 pg (27-31); MEAN CORPUSCULAR HGB CONC 31 g/dL (33-37); MEAN CORPUSCULAR VOLUME 94.6 fL (80-94); MONOCYTES # (AUTO) 0.1 K/uL (0.8-1.0); MONOCYTES % (AUTO) 1.5 % (1.7-9.3); NEUTROPHILS # (AUTO) 4.8 K/uL (1.8-7.7); NEUTROPHILS % (AUTO) 87.2 % (42.2-75.2); RED BLOOD CELL COUNT(AUTO) 3.92 MIL/uL (4.20-5.40); RED CELL DISTRIBUTION WIDTH 13.6 % (11.6-13.7); WHITE BLOOD COUNT (AUTO) 5.5 K/uL (4.8-10.8)
[2018-08-06 06:07] LABS: CREATININE 0.7 mg/dL (0.6-1.3); POTASSIUM 4.9 mmol/L (3.5-5.1)
[2018-08-06 06:16] LABS: ANION GAP -0.2 (8-16)
[2018-08-06 06:22] LABS: PLATELET COUNT (AUTO) 126 K/uL (140-450)
--- NOTE | 2018-08-06 06:53 | NUR ---
CALLED RT TO ASSIST WITH PT DUE TO PT INSISTING ON BIPAP TO BE OFF.
--- NOTE | 2018-08-06 06:55 | NUR ---
PT AGITATED AT THIS TIME RIPPED OFF BIPAP AND REFUSING TO BE PLACED BACK ON. EXPLAINED INDICATIONS AND BENEFITS OF BIPAP PT STILL REFUSING TO WEAR IT AT THIS TIME. PT PLACED ON 2L NC, SPO2 92%. PT NOT SOB AT THIS TIME. PT REMAINS AGITATED.
--- NOTE | 2018-08-06 07:15 | NUR ---
PT PLACED ON BIPAP AND LESS AGITATED AT THIS TIME. BIPAP SETTINGS 16/5, R 18, FIO2 35%. NURSE AWARE. BIPAP ALARMS ON AND FUNCTIONING. WILL CONTINUE TO MONITOR.
--- NOTE | 2018-08-06 07:30 | NUR ---
RECEIVED REPORT FROM WOODS OVERSEER RN. PT A/O X4. AGITATED TOOK OUT BiPAP. RT AT BESIDE. EXPLAINED RISK AND BENEFITS OF BiPAP. STILL REFUSED TO BE ON BiPAP. PLACED PT ON O2 AT 2 LTR/MIN. PT KEEP SAYING CONSISTENTLY "I WANT TO GO HOME." " I WANT TO EAT." EXPLAINED THAT DOCTOR ORDER NOTHING BY MOUTH AND SHE NEEDS TO WAIT HER DOCTOR TO EAT AND GO HOME. PT AGREED. HEAD TO TOE ASSESSMENT DONE. REDNESS NOTED ON FACE. SKIN DRY AND WARM TO TOUCH. LUNGS CLEAR. ABDOMEN SOFT, ROUND AND NON-TENDER. ACTIVE BOWEL SOUND. RFA 22G INTACT. FLUSHED. NS RUNNING AT 80 ML/HR. NO C/O PAIN. MOVES ALL EXTREMITIES FREELY. SKIN DISCOLORATION NOTED ON BLE. KEPT HOB ELEVATED. BED IN LOW POSITION LOCKED. WILL CONTINUE TO MONITOR.
--- NOTE | 2018-08-06 07:30 | NUR ---
MOR RECEIVED BY LOCOMOTIVE CRANE OPERATOR RN HANDED TO PATIENT.
--- NOTE | 2018-08-06 07:33 | NUR ---
PT AGITATED AND RIPPED OFF BIPAP MASK AGAIN WITH NURSE BEDSIDE. PT STATING BIPAP IS NOT HELPING HER. EXPLAINED INDICATIONS FOR BIPAP AND SIDE EFFECTS OF HYPERCAPNIA. PT STILL REFUSING TO WEAR IT.
--- NOTE | 2018-08-06 07:54 | NUR ---
PT ON 2L NC SPO2 92%. NO SOB NOTED.
[2018-08-06] MEDS: NACL 0.9% 1,000 ML IV SCH (08:05)
--- NOTE | 2018-08-06 08:30 | NUR ---
PT SIGNED AMA PAPER.
--- NOTE | 2018-08-06 08:30 | NUR ---
ASSISTED TO USE BEDPAN. VOIDED FREELY.
--- NOTE | 2018-08-06 08:35 | NUR ---
DR. WOOD IN TO SEE PT. UPDATED PT CONDITION. MADE AWARE THAT PT REFUSED TO BE ON BIPAP. DOCTOR AWARE THAT PT WANTS TO GO HOME. PT CONDITION EXPLAINED BY DOCTOR. EXPLAINED RISK AND BENEFITS OF REFUSING TREATMENT AND LEAVING AMA. PT SAID "I KNOW I WILL BE RESPONSIBLE PERSON." " I WANT PAPER NOW TO GO HOME."
--- NOTE | 2018-08-06 08:44 | NUR ---
UPDATED ON PT STATUS AND PT BEING UNCOOPERATIVE AND REFUSING TO WEAR BIPAP. NURSE ALSO AWARE.
[2018-08-06] MEDS ORDERED: DOCUSATE SODIUM 100 MG GELCAP PO SCH (09:00)
[2018-08-06] MEDS ORDERED: AZITHROMYCIN 250 MG TAB PO SCH (09:00)
[2018-08-06] MEDS ORDERED: LEVOFLOXACIN 750 MG/D5W PREMIX 150 ML IV SCH (09:00)
[2018-08-06] MEDS ORDERED: METHADONE 10 MG TAB PO SCH (09:00)
--- NOTE | 2018-08-06 09:20 | NUR ---
PT RIPPED OFF LEADS AND SPO2 MONITOR. STATED SHE WANTS TO LEAVE NOW. REFUSED TO BE ON MONITOR. ASKED FOR HER BELONGINGS. BELONGINGS HANDED TO PT. STARTED TO WEAR HER CLOTHES. STATED SHE WANTS TO LEAVE FROM ROOM AND STAY IN LOBBY AND CALL CAB. CHARGE NURSE MADE AWARE. PT MADE AWARE ABOUT THE WEATHER AND HER CONDITION AND POSSIBLE COMPLICATIONS. STILL INSISTS TO GO AND STAY IN LOBBY. NURSING [facility] TECHNICAL LEAD SENIOR DEVELOPER IN ICU. ASKED PT IF SHE WANTS US TO CALL CAB FOR RIDE TO GO HOME BUT SHE NEEDS TO PAY FOR RIDE. PATIENT SAID "YES". PT AGREED TO STAY IN BED ON O2 UNTIL HER RIDE COMES.
--- NOTE | 2018-08-06 09:47 | NUR ---
PATIENT ASKED TO CALL A CAB FOR HER, SHE STATED "I DO NOT WANT TO WAIT FOR [place] ANYMORE, I WANT TO GO HOME NOW." CHYNA GRIFFIN CALLED TO SET UP THE TRANSPORT, SPOKE TO JOSE. SHE STATED CAB WILL BE HERE IN 30 MINS. PATIENT MADE AWARE, AGREEABLE TO PAY BY CREDIT CARD.
--- NOTE | 2018-08-06 09:52 | NUR ---
IV LINE DC'D, CATHETER INTACT. ID BAND REMOVED.
--- NOTE | 2018-08-06 10:00 | NUR ---
PT ASSISTED TO HUA CAB RIDE SAFELY.
== END 2018-08-06 10:00 | disposition left against medical advice (07) | DRG 189 ==
LOC: MED 17:25 → MIC 19:35
PROVIDERS: ADMIT Hospitalist; ATTEND Hospitalist
PROC: 5A09357 Assistance with Respiratory Ventilation, Less than 24 Consecutive Hours, Continuous Positive Airway Pressure (ICD-10-PCS; principal; 2018-08-05)
DX: J96.20 Acute and chronic respiratory failure, unspecified whether with hypoxia or hypercapnia (principal); E44.0 Moderate protein-calorie malnutrition; Z68.1 Body mass index [BMI] 19.9 or less, adult; J43.9 Emphysema, unspecified; F17.210 Nicotine dependence, cigarettes, uncomplicated; I10 Essential (primary) hypertension; Z88.0 Allergy status to penicillin; Z88.2 Allergy status to sulfonamides; Z88.8 Allergy status to other drugs, medicaments and biological substances; Z79.899 Other long term (current) drug therapy; Z53.21 Procedure and treatment not carried out due to patient leaving prior to being seen by health care provider; J40 Bronchitis, not specified as acute or chronic
CPT/HCPCS: 36415; 36600; 71045; 80048; 80053; 81001; 82803; 83605; 83880; 84484; 85025; 85610; 85730; 87040; 87070; 87081; 87086; 87205; 89220; 93005; 94640; 94660; 99285; C1758; J0456; J1644; J2920; J2930; J7030; J7060; J7620; Q0092

== ENCOUNTER 2018-10-01 16:08 | Emergency (ER) | payer OTHER ==
[~2018-10-01] VITALS: Ht 157.5 cm; Wt 49.9 kg
[~2018-10-01 16:08] MED LIST changes: -Vancomycin Per Pharmacy MC
--- NOTE | 2018-10-01 16:08 | NUR ---
PATIENT BIB EMS TO BED 8
[2018-10-01 16:14] VITALS: BP 171/95
--- NOTE | 2018-10-01 16:22 | NUR ---
58/F BIBA FROM HOME C/O LEFT HIP/KNEE PAIN, LAC WOUND TO LEFT EAR (LOWER ANTI HELIX) SUPERFICIAL ABRASION TO LEFT ELBOW AND LEFT 3RD KNUCKLE S/P MECHANICAL FALL WHILE GETTING UP FROM TOILET;FELL ONTO LEFT SIDE . DENIES LOC. HX--COPD (5L O2 DEPENDENT), ANXIETY, HTN, RENAL DISEASE, ANEMIA, IVDA, HEP C, . RX---METHADONE. PATIENT STATES PAIN OF 6/10 AT THIS TIME. PATIENT POSITIONED FOR COMFORT; HOB ELEVATED; BEDRAILS UP X2; BED DOWN. ER MD MADE AWARE OF PT STATUS.
--- NOTE | 2018-10-01 16:42 | NUR ---
X RAY AT BEDSIDE
[2018-10-01] MEDS ORDERED: MORPHINE SULFATE 4 MG/ML SYR ONE (17:22)
[2018-10-01] MEDS ORDERED: MORPHINE SULFATE 4 MG/ML SYR IM ONE (17:25)
[2018-10-01] MEDS ORDERED: MORPHINE SULFATE 4 MG/ML SYR IVP ONE (18:25)
[2018-10-01 18:29] LABS: BASOPHILS % (AUTO) 0.6 % (0.0-2.0); EOSINOPHILS # (AUTO) 0.1 K/uL (0-0.4); EOSINOPHILS % (AUTO) 0.9 % (0.0-4.0); HEMATOCRIT 31.1 % (36-48); HEMOGLOBIN 9.9 g/dL (12.0-16.0); LYMPHOCYTES # (AUTO) 0.7 K/uL (2.5-16.5); MEAN CORPUSCULAR HEMOGLOBIN 30 pg (27-31); MEAN CORPUSCULAR HGB CONC 32 g/dL (33-37); MEAN CORPUSCULAR VOLUME 94.9 fL (80-94); MONOCYTES # (AUTO) 0.6 K/uL (0.8-1.0); MONOCYTES % (AUTO) 8.9 % (1.7-9.3); NEUTROPHILS # (AUTO) 5.2 K/uL (1.8-7.7); NEUTROPHILS % (AUTO) 78.6 % (42.2-75.2); PLATELET COUNT (AUTO) 136 K/uL (140-450); RED BLOOD CELL COUNT(AUTO) 3.27 MIL/uL (4.20-5.40); WHITE BLOOD COUNT (AUTO) 6.6 K/uL (4.8-10.8)
--- NOTE | 2018-10-01 18:38 | NUR ---
PT TAKEN TO CT VIA GUDONTE, ACCOMPANIED BY QA TESTER.
[2018-10-01 18:44] LABS: APPEARANCE,URINE CLOUDY (CLEAR); COLOR,URINE YELLOW (YELLOW)
[2018-10-01 18:45] LABS: BILIRUBIN,URINE NEGATIVE (NEGATIVE); BLOOD, URINE TRACE (NEGATIVE); LEUKOCYTE ESTERASE ,URINE NEGATIVE (NEGATIVE); NITRITE, URINE NEGATIVE (NEGATIVE); PH,URINE 8.5 (5.0-9.0); UGLUCOSE NEGATIVE (NEGATIVE)
[2018-10-01 18:51] LABS: POTASSIUM 4.1 mmol/L (3.5-5.1)
[2018-10-01 18:53] LABS: ANION GAP 2.7 (8-16); CARBON DIOXIDE 46.4 mmol/L (21-32)
[2018-10-01 18:54] LABS: ALBUMIN 3.4 g/dL (3.4-5.0); CREATININE 0.6 mg/dL (0.6-1.3); TOTAL BILIRUBIN 0.2 mg/dL (0.0-1.0)
--- NOTE | 2018-10-01 18:55 | NUR ---
RECEIVED CRITICAL LAB FROM ANNE MARIE;LAB. CO2 46.4. NOTIFIED DR MOTTA.
--- NOTE | 2018-10-01 19:13 | NUR ---
PT RETURN FROM CT
--- NOTE | 2018-10-01 19:15 | NUR ---
Pt report given to MIRIAM GRIFFIN. Transfer of care at this time.
--- NOTE | 2018-10-01 19:15 | NUR ---
RECEIVED REPORT FROM AM NURSE. PT'S SISTER PINO TATE [phone] CELL, HOME, PT LAYING IN BED HIGH RAMIREZ'S, SPO2 97% ON 4L NC (HOME O2), RR 16 EVEN AND UNLABORED. REPORTS 5/10 L HIP PAIN, LLE ELEVATED WITH BLANKETS FOR PT'S COMFORT. PT REFUSED BEING PLACED ON SPO2 AND HR DIRECTOR DESPITE EDUCATION. PT REQUESTING FOR ICE CHIPS. ER MD MADE AWARE. PER ER MD, OK TO GET ICE CHIPS AT THIS TIME. ALL NEEDS MET.
[2018-10-01] MEDS ORDERED: fentaNYL 0.05 MG/ML VIAL IVP ONE ×2 (20:50→22:55)
--- NOTE | 2018-10-01 21:43 | NUR ---
PT LAYING IN BED SEMI RAMIREZ'S PER PT'S COMFORT WITH LLE ELEVATED WITH BLANKETS. SPO2 93% ON 4L O2 NC, RR EVEN AND UNLABORED. ADMINISTERED FENTANYL IVP WITH EDUCATION, PT TOLERATED WELL. ALL NEEDS MET AT THIS TIME.
--- NOTE | 2018-10-01 23:14 | NUR ---
PT LAYING IN BED, RR EVEN AND UNLABORED, VSS. REPORTS L HIP PAIN, ADMINISTERED FENTANYL IVP WITH EDUCATION, PT TOLERATED WELL. ALL NEEDS MET AT THIS TIME.
--- NOTE | 2018-10-02 00:58 | NUR ---
PT C/O INSOMNIA DUE TO PAIN, ER MADE AWARE.
--- NOTE | 2018-10-02 00:58 | NUR ---
PT LAYING IN BED, C/O 10/10 L HIP PAIN, LAST FENTANYL IVP 2 HRS AGO, ER MD MADE AWARE. ER MD AT BEDSIDE TO SEE PT. VSS, SPO2 90% ON O2 3L NC, RR 19 EVEN AND UNLABORED. PT REPOSITIONED IN SEMIFOWLER'S WITH LLE ELEVATED FOR PER PT'S COMFORT. ALL NEEDS MET AT THIS TIME.
--- NOTE | 2018-10-02 01:15 | NUR ---
CHECKED ON PT, PT SLEEPING AT THIS TIME, VSS. ALL NEEDS MET.
[2018-10-02] MEDS ORDERED: fentaNYL 0.05 MG/ML VIAL IVP ONE (01:30)
--- NOTE | 2018-10-02 01:50 | NUR ---
PT C/O L HIP PAIN, PT REPOSITIONED AND LLE ELEVATED FOR COMFORT. VSS, RR EVEN AND UNLABORED. ADMINISTERED FENTANYL IVP WITH EDUCATION, PT TOLERATED WELL. ALL NEEDS MET AT THIS TIME.
--- NOTE | 2018-10-02 02:17 | NUR ---
Patient to be transferred to [facility]. Is being transferred due to L HIP FRACTURE. Receiving facility has accepting physician and available space. ER physician has signed transfer form. Patient or responsible alliance party has agreed to transfer and signed form. Patient belongings inventoried and will be sent with patient. Copy of nursing notes, lab reports, EKG, Physicians Orders and X-rays to be sent with patient. Report called to AMANDO at receiving facility, to bed 684B, Dr. Gaby Beaver. [facility] ambulance service has been called for transfer. ETA is AT 0300. Addendum: 10/02/18 at 0318 by MEDLACiara DX L FEMUR FRACTURE
--- NOTE | 2018-10-02 02:50 | NUR ---
[facility] AT BEDSIDE
[2018-10-02 03:09] VITALS: BP 169/100
--- NOTE | 2018-10-02 03:09 | NUR ---
PT TO BE TRANSFERRED TO [facility], BED 684B, STOPPING BY [facility] ER FOR REGISTRATION. [facility] AT BEDSIDE. GAVE REPORT. PT VSS, SPO2 90% ON 3L O2 NC, RR 19 EVEN AND UNLABORED. PT REPORTS MILD IMPROVEMENT IN PAIN. PT'S HOME O2 TANK AND PT'S DENTURE AND PT'S BELONGINGS SENT WITH PT. CONDITION STABLE.
== END 2018-10-02 03:09 | disposition short-term general hospital (02) ==
LOC: MED 16:08
DX: S72.142A Displaced intertrochanteric fracture of left femur, initial encounter for closed fracture (principal); J43.9 Emphysema, unspecified; I10 Essential (primary) hypertension; Z88.0 Allergy status to penicillin; Z88.1 Allergy status to other antibiotic agents; Z88.2 Allergy status to sulfonamides; Z88.8 Allergy status to other drugs, medicaments and biological substances; Z88.5 Allergy status to narcotic agent; Z79.899 Other long term (current) drug therapy; W19.XXXA Unspecified fall, initial encounter; Y93.89 Activity, other specified; Y92.89 Other specified places as the place of occurrence of the external cause; Y99.8 Other external cause status
CPT/HCPCS: 36415; 70450; 71045; 72125; 73080; 73130; 73502; 73564; 80053; 81003; 84484; 85025; 93005; 96374; 96375; 96376; 99285; J2270; J3010; Q0092

== ENCOUNTER 2020-08-28 05:57 | Emergency (ER) | payer OTHER, SELFPAY ==
[~2020-08-28] VITALS: Ht 165.1 cm; Wt 54.4 kg
[~2020-08-28 05:57] MED LIST changes: -COZ50 PO; -DIL1I IVP; -LACT10CA NG; -LACT10SO11 PO; +LOSA50TA57 PO; -LOV30I SUBQ; -METH40PD15 IVP; -ONDA2SOL45 IVP; -PANT40PD7 IVP; -[UNRECOGNIZED DRUG - CODE] IV
[2020-08-28 06:02] VITALS: BP 144/81
--- NOTE | 2020-08-28 06:02 | NUR ---
TO BED 8 VIA [facility] WITH CC EPISTAXIS AND SOB. PT WITH HISTORY OF COPD. IS SPEAKING IN FULL CLEAR SENTENCES. LUNG SOUNDS ARE DIMINISHED THROUGHOUT. O2 SAT = 84% ON R/A. PLACED ON 4L N/C AND O2 SAT INCREASES TO 96%. ATTACHED TO CM = SR WITHOUT ECTOPY.
--- NOTE | 2020-08-28 06:10 | NUR ---
DR. ALEXANDER AT BEDSIDE FOR EXAM
[2020-08-28] MEDS ORDERED: methylPREDNISolone SS 125 MG in WATER STERILE 2 ML IV ONE (06:20)
[2020-08-28] MEDS ORDERED: MAG SULF 2000 MG/WATER PREMIX 50 ML IV ONE (06:20)
[2020-08-28] MEDS ORDERED: ALBUTEROL 0.083% 2.5 MG/3 ML NEBU INH ONE (06:20)
--- NOTE | 2020-08-28 06:20 | NUR ---
COLT SWAB OBTAINED AND SENT TO LAB
--- NOTE | 2020-08-28 06:36 | NUR ---
ABG BEING DRAWN
--- NOTE | 2020-08-28 06:44 | NUR ---
EKG PERFORMED AT BEDSIDE. EKG READS SINUS RHYTHM @ 81
--- NOTE | 2020-08-28 06:55 | NUR ---
PT WITH VERY POOR VENOUS ACCESS WITH H/O IV DRUG ABUSE. PT IS RESTLESS, WILL NOT STOP TALKING ON THE CELL PHONE. LAB AT BEDSIDE, ALSO UNABLE TO OBTAIN VENOUS ACCESS. PT REMAINS TALKING ON HER CELL PHONE
[2020-08-28] MEDS ORDERED: ALBUTEROL SULFATE/IPRATROPIU 3 ML SOL IH SCH (07:00)
[2020-08-28] MEDS ORDERED: MAG SULF 2000 MG/WATER PREMIX 50 ML IV PRN (07:00)
[2020-08-28] MEDS ORDERED: POTASSIUM CHLORIDE 10 MEQ TABER PO PRN (07:00)
[2020-08-28] MEDS ORDERED: KCL 20 MEQ/WATER INJ PREMIX 200 ML IV PRN (07:00)
[2020-08-28] MEDS ORDERED: ONDANSETRON 4 MG/2 ML VIAL IVP PRN (07:00)
[2020-08-28] MEDS ORDERED: MAGNESIUM OXIDE 400 MG TAB PO PRN (07:00)
[2020-08-28] MEDS ORDERED: ACETAMINOPHEN 325 MG TAB PO PRN (07:00)
--- NOTE | 2020-08-28 07:01 | NUR ---
DR. ADKINS CALLED AND GAVE TO/RB ORDER TO PLACE PATIENT ON BIPAP.
[2020-08-28] MEDS ORDERED: methylPREDNISolone SS 125 MG/2 ML VIAL ONE (07:37)
[2020-08-28 07:42] LABS: BASOPHILS % (AUTO) 0.5 % (0.0-2.0); EOSINOPHILS % (AUTO) 0.3 % (0.0-4.0); HEMATOCRIT 41.7 % (36-48); HEMOGLOBIN 13.4 g/dL (12.0-16.0); LYMPHOCYTES # (AUTO) 0.5 K/uL (2.5-16.5); LYMPHOCYTES % (AUTO) 8.1 % (20.5-51.1); MEAN CORPUSCULAR HEMOGLOBIN 31 pg (27-31); MEAN CORPUSCULAR HGB CONC 32 g/dL (33-37); MEAN CORPUSCULAR VOLUME 97.6 fL (80-94); MONOCYTES # (AUTO) 0.4 K/uL (0.8-1.0); MONOCYTES % (AUTO) 5.9 % (1.7-9.3); NEUTROPHILS # (AUTO) 5.5 K/uL (1.8-7.7); NEUTROPHILS % (AUTO) 85.2 % (42.2-75.2); PLATELET COUNT (AUTO) 156 K/uL (140-450); RED BLOOD CELL COUNT(AUTO) 4.27 MIL/uL (4.20-5.40); RED CELL DISTRIBUTION WIDTH 13.9 % (11.6-13.7); WHITE BLOOD COUNT (AUTO) 6.4 K/uL (4.8-10.8)
[2020-08-28 07:46] VITALS: BP 132/79
[2020-08-28 07:56] LABS: APPEARANCE,URINE CLEAR (CLEAR); BILIRUBIN,URINE NEGATIVE (NEGATIVE); BLOOD, URINE 2+ (NEGATIVE); COLOR,URINE YELLOW (YELLOW); LEUKOCYTE ESTERASE ,URINE NEGATIVE (NEGATIVE); NITRITE, URINE NEGATIVE (NEGATIVE); PH,URINE 6.5 (5.0-9.0); UGLUCOSE NEGATIVE (NEGATIVE)
[2020-08-28 07:58] LABS: ALBUMIN 4.1 g/dL (3.4-5.0); ANION GAP 4.7 (8-16); CREATININE 0.6 mg/dL (0.6-1.3); POTASSIUM 4.5 mmol/L (3.5-5.1); TOTAL BILIRUBIN 0.4 mg/dL (0.0-1.0)
--- NOTE | 2020-08-28 08:07 | NUR ---
Patient refusing BiPaP. states she will not be able to tolerate it and is not willing to try it. RN notified
--- NOTE | 2020-08-28 08:10 | NUR ---
PATIENT REFUSING BIPAP AT THIS TIME, STATES SHE WANTS TO BE FULLY SEDATED IF SHE NEEDS BIPAP
[2020-08-28 08:27] LABS: CARBON DIOXIDE 41.8 mmol/L (21-32)
--- NOTE | 2020-08-28 08:30 | NUR ---
Pt wants to sign out AMA. Dr. Britton has been paged. Pt states she called her caregiver to pick her up.
[2020-08-28 08:36] LABS: WBC,URINE 0-5 /HPF (0-5)
--- NOTE | 2020-08-28 08:45 | NUR ---
PATIENT REFUSING FURTHER CARE AT THIS TIME.
--- NOTE | 2020-08-28 08:52 | NUR ---
Dr. Britton returned page and spoke with patient about her admission. After speaking with Dr. Britton patient still wishes to sign herself out AMA and go home. Pt states she called her caregiver to pick her up and does not want to stay. Pt states she is a smoker and will smoke in the room if we do not allow her to and states the nicotene patches do not work on her.
--- NOTE | 2020-08-28 08:59 | NUR ---
Patient does not wish to proceed with medical care recommended by Dr. Britton. Patient given information related to possible complications, up to and including , which could occur as a result of leaving hospital at this time. Patient verbalizes understanding of risks involved leaving against medical advice. Patient has signed AMA form. IV removed, catheter intact and site benign. Applied folded 2x2 gauze and tape to stop bleeding. Pt left waiting in room to wait for caregiver so patient can continue to receive oxygen via nasal canula.
[2020-08-28] MEDS ORDERED: ENOXAPARIN 40 MG/0.4 ML SYR SUBQ SCH (09:00)
--- NOTE | 2020-09-04 19:28 | NUR ---
LATE ENTRY- MAGNESIUM SULFATE IVPB DISCONTINUED AT 0859
== END 2020-08-28 08:57 | disposition left against medical advice (07) ==
LOC: MED 05:57 → MTU 06:59 → UNDOADMIN 07:09 → MTU 07:09 → UNDODISIN 08:59
DX: J44.1 Chronic obstructive pulmonary disease with (acute) exacerbation (principal); Z20.822 Contact with and (suspected) exposure to COVID-19; F17.210 Nicotine dependence, cigarettes, uncomplicated; I10 Essential (primary) hypertension; Z79.899 Other long term (current) drug therapy; Z88.0 Allergy status to penicillin; Z88.8 Allergy status to other drugs, medicaments and biological substances; Z88.1 Allergy status to other antibiotic agents; Z88.2 Allergy status to sulfonamides
CPT/HCPCS: 36415; 36600; 71045; 80053; 81001; 82803; 83605; 83935; 84484; 85025; 87040; 87426; 93005; 94640; 96365; 96375; 99291; C1758; J2930; J3475; J7613

== ENCOUNTER 2020-09-01 06:05 | Emergency (ER) | payer OTHER ==
[~2020-09-01] VITALS: Ht 157.5 cm; Wt 43.1 kg
[2020-09-01 06:05] VITALS: BP 171/95
[2020-09-01 06:32] LABS: BASOPHILS # (AUTO) 0.1 K/uL (0.00-0.22); BASOPHILS % (AUTO) 0.7 % (0.0-2.0); EOSINOPHILS # (AUTO) 0.1 K/uL (0-0.4); EOSINOPHILS % (AUTO) 0.8 % (0.0-4.0); HEMATOCRIT 39.2 % (36-48); HEMOGLOBIN 12.8 g/dL (12.0-16.0); LYMPHOCYTES # (AUTO) 0.7 K/uL (2.5-16.5); LYMPHOCYTES % (AUTO) 8.7 % (20.5-51.1); MEAN CORPUSCULAR HEMOGLOBIN 31 pg (27-31); MEAN CORPUSCULAR HGB CONC 33 g/dL (33-37); MEAN CORPUSCULAR VOLUME 96.1 fL (80-94); MONOCYTES # (AUTO) 0.6 K/uL (0.8-1.0); MONOCYTES % (AUTO) 7.5 % (1.7-9.3); NEUTROPHILS # (AUTO) 6.8 K/uL (1.8-7.7); NEUTROPHILS % (AUTO) 82.3 % (42.2-75.2); PLATELET COUNT (AUTO) 179 K/uL (140-450); RED BLOOD CELL COUNT(AUTO) 4.08 MIL/uL (4.20-5.40); WHITE BLOOD COUNT (AUTO) 8.3 K/uL (4.8-10.8)
[2020-09-01 06:40] LABS: APPEARANCE,URINE CLEAR (CLEAR); BILIRUBIN,URINE NEGATIVE (NEGATIVE); BLOOD, URINE 1+ (NEGATIVE); COLOR,URINE YELLOW (YELLOW); LEUKOCYTE ESTERASE ,URINE NEGATIVE (NEGATIVE); NITRITE, URINE NEGATIVE (NEGATIVE); UGLUCOSE NEGATIVE (NEGATIVE)
[2020-09-01 06:43] LABS: ANION GAP 5.2 (8-16); CARBON DIOXIDE 39.4 mmol/L (21-32); CREATININE 0.6 mg/dL (0.6-1.3); POTASSIUM 4.6 mmol/L (3.5-5.1)
[2020-09-01 06:56] LABS: RBC,URINE 0-5 /HPF (0-5); WBC,URINE 0-5 /HPF (0-5)
[2020-09-01] MEDS ORDERED: levoFLOXacin 500 MG TAB PO ONE (07:05)
[2020-09-01] MEDS ORDERED: PHENAZOPYRIDINE 100 MG TAB PO ONE (07:05)
[2020-09-01] MEDS ORDERED: PYR100 PO (07:09)
[2020-09-01] MEDS ORDERED: LEVO500T98 PO (07:09)
[2020-09-01 09:25] VITALS: BP 143/88
== END 2020-09-01 09:25 | disposition home or self-care (01) ==
LOC: MED 06:05
DX: R35.0 Frequency of micturition (principal); R31.9 Hematuria, unspecified; J44.9 Chronic obstructive pulmonary disease, unspecified; I10 Essential (primary) hypertension; Z88.0 Allergy status to penicillin; Z88.5 Allergy status to narcotic agent; Z88.2 Allergy status to sulfonamides; Z79.899 Other long term (current) drug therapy
CPT/HCPCS: 36415; 51702; 80048; 81001; 85025; 99284

== ENCOUNTER 2020-09-08 05:50 | Emergency (ER) | payer OTHER ==
[~2020-09-08] VITALS: Ht 165.1 cm; Wt 43.1 kg
[~2020-09-08 05:50] MED LIST changes: +LEVO500T98 PO; +PYR100 PO
[2020-09-08 05:59] VITALS: BP 140/100
--- NOTE | 2020-09-08 06:05 | NUR ---
PATIENT PRESENTS TO ED WITH C/O SOB . PT STATES "I NEED TO PEE". DENIES N/V/D; SKIN IS PINK/WARM/DRY; AAOX4 LUNGS CLEAR IS TACHYPNEIC; HR EVEN AND REGULAR; PT DENIES ANY FEVER, CP, SOB, OR COUGH AT THIS TIME; PATIENT STATES PAIN OF 0/10 AT THIS TIME; VSS; PATIENT POSITIONED FOR COMFORT; HOB ELEVATED; BEDRAILS UP X2; BED DOWN. ER MD MADE AWARE OF PT STATUS. PMH :COPD
[2020-09-08] MEDS ORDERED: methylPREDNISolone SS 80 MG in WATER STERILE 1 ML IV ONE (06:20)
--- NOTE | 2020-09-08 06:35 | NUR ---
LAB AT BEDSIDE
[2020-09-08 06:49] LABS: BASOPHILS # (AUTO) 0.1 K/uL (0.00-0.22); BASOPHILS % (AUTO) 1.4 % (0.0-2.0); EOSINOPHILS # (AUTO) 0.1 K/uL (0-0.4); HEMATOCRIT 40.4 % (36-48); HEMOGLOBIN 13.1 g/dL (12.0-16.0); LYMPHOCYTES # (AUTO) 0.9 K/uL (2.5-16.5); MEAN CORPUSCULAR HEMOGLOBIN 31 pg (27-31); MEAN CORPUSCULAR HGB CONC 33 g/dL (33-37); MONOCYTES % (AUTO) 15.7 % (1.7-9.3); NEUTROPHILS # (AUTO) 4.1 K/uL (1.8-7.7); NEUTROPHILS % (AUTO) 66.9 % (42.2-75.2); PLATELET COUNT (AUTO) 175 K/uL (140-450); RED BLOOD CELL COUNT(AUTO) 4.21 MIL/uL (4.20-5.40); RED CELL DISTRIBUTION WIDTH 14.1 % (11.6-13.7); WHITE BLOOD COUNT (AUTO) 6.2 K/uL (4.8-10.8)
--- NOTE | 2020-09-08 07:00 | NUR ---
ASSISTED UP TO BSC
[2020-09-08 07:05] LABS: ALBUMIN 3.8 g/dL (3.4-5.0); ANION GAP 3.8 (8-16); CREATININE 0.7 mg/dL (0.6-1.3); POTASSIUM 4.6 mmol/L (3.5-5.1); TOTAL BILIRUBIN 0.3 mg/dL (0.0-1.0)
--- NOTE | 2020-09-08 07:14 | NUR ---
Report and continuation of care received from GABY Schrader.
[2020-09-08 07:15] LABS: CARBON DIOXIDE 42.8 mmol/L (21-32)
[2020-09-08] MEDS ORDERED: methylPREDNISolone SS 125 MG/2 ML VIAL IM ONE (07:15)
--- NOTE | 2020-09-08 07:16 | NUR ---
Urine sample collected and sample walked to lab and handed to ted Dsouza tech.
[2020-09-08] MEDS ORDERED: PRED20TA5 PO (07:19)
[2020-09-08] MEDS ORDERED: AZIT250T3 PO (07:19)
[2020-09-08 07:24] LABS: PROTHROMBIN TIME 9.2 secs (10.8-13.4)
[2020-09-08 07:25] LABS: APPEARANCE,URINE CLEAR (CLEAR); BILIRUBIN,URINE NEGATIVE (NEGATIVE); BLOOD, URINE 1+ (NEGATIVE); COLOR,URINE YELLOW (YELLOW); LEUKOCYTE ESTERASE ,URINE NEGATIVE (NEGATIVE); NITRITE, URINE NEGATIVE (NEGATIVE); PH,URINE 6.5 (5.0-9.0); UGLUCOSE NEGATIVE (NEGATIVE)
--- NOTE | 2020-09-08 07:28 | NUR ---
Patient presents awake resting in semi-fowlers position. Patient voided 125 cc clear/yellow urine into bedside commode. die repair remains in place. Patient denies any respiratory distress at this time; SPO2 100% on 2L via N/C. Bed locked in lowest position, side rails x 1, call light in reach.
[2020-09-08 07:29] LABS: RBC,URINE 0-5 /HPF (0-5); WBC,URINE 0-5 /HPF (0-5)
--- NOTE | 2020-09-08 07:30 | NUR ---
Patient is attempting to contact family member to schedule transportation for home.
--- NOTE | 2020-09-08 07:35 | NUR ---
Patient contacted Karen (caregiver) for transportation home; caregiver states 1 hour ETA.
--- NOTE | 2020-09-08 08:11 | NUR ---
Breakfast tray provided at bedside; patient sitting upright in position of comfort completing meal. Respirations even/unlabored. No distress noted at this time. satellite project site monitor remains in place. Bed locked in lowest position, side rails x 1 with bedside commode near, call light in reach.
--- NOTE | 2020-09-08 08:43 | NUR ---
Per Karen (caregiver), updated ETA 20 minutes. Meal tray remains at bedside, patient is completing meal at this time. medical policy specialist in place. Bed locked in lowest position, side rails x 1, call light in reach.
[2020-09-08 09:25] VITALS: BP 110/64
== END 2020-09-08 09:25 | disposition home or self-care (01) ==
LOC: MED 05:50
DX: J44.1 Chronic obstructive pulmonary disease with (acute) exacerbation (principal); Z88.0 Allergy status to penicillin; Z88.1 Allergy status to other antibiotic agents; Z88.2 Allergy status to sulfonamides; Z88.8 Allergy status to other drugs, medicaments and biological substances; I10 Essential (primary) hypertension; Z79.899 Other long term (current) drug therapy
CPT/HCPCS: 36415; 71045; 80053; 81001; 83605; 83880; 84484; 85025; 85610; 87040; 87086; 93005; 96372; 99285; J2930

== ENCOUNTER 2020-09-19 03:50 | Emergency (ER) | payer OTHER ==
[~2020-09-19] VITALS: Ht 157.5 cm; Wt 43.1 kg
[~2020-09-19 03:50] MED LIST changes: +AZIT250T3 PO; +PRED20TA5 PO
--- NOTE | 2020-09-19 03:59 | NUR ---
BIBA TO ER BED 5
--- NOTE | 2020-09-19 04:00 | NUR ---
60 Y/O F BIBA TO THE ED WITH COPD EXACERBATIONS AND UTI SYMPTOMS. PT STATES THAT "I THINK I'M HAVING UTI" AND THAT IT IS PAINFUL TO URINATE. PT KEEP INSISTING THAT SHE HAS THE URGE TO PEE AND "NEEDS A CATHETER". DENIES N/V/D; SKIN IS PINK/WARM/DRY; AAOX4 WITH EVEN AND STEADY GAIT; LUNGS CLEAR BL; HR EVEN AND REGULAR; PT DENIES ANY FEVER, CP, SOB, OR COUGH AT THIS TIME; PATIENT STATES PAIN OF 0/10 AT THIS TIME; VSS; PATIENT POSITIONED FOR COMFORT; HOB ELEVATED; BEDRAILS UP X2; BED DOWN. ER MADE AWARE OF PT STATUS. PMH: COPD, UTI ALLERGIES: PENICILLIN Addendum: 09/19/20 at 0601 by [email or web address] ALLERGIES: DIPENHYDRAMINE, BACTRIM, NUBAINE
--- NOTE | 2020-09-19 04:30 | NUR ---
COLLECTED URINE AND HANDED TO CPT MISTI
[2020-09-19 04:32] VITALS: BP 164/107
[2020-09-19 04:33] VITALS: BP 121/67
--- NOTE | 2020-09-19 05:47 | NUR ---
LAB AT BEDSIDE
[2020-09-19 05:58] LABS: BASOPHILS % (AUTO) 0.3 % (0.0-2.0); EOSINOPHILS % (AUTO) 0.1 % (0.0-4.0); HEMATOCRIT 36.7 % (36-48); HEMOGLOBIN 12.1 g/dL (12.0-16.0); LYMPHOCYTES # (AUTO) 0.7 K/uL (2.5-16.5); MEAN CORPUSCULAR HEMOGLOBIN 31 pg (27-31); MEAN CORPUSCULAR HGB CONC 33 g/dL (33-37); MEAN CORPUSCULAR VOLUME 94.7 fL (80-94); MONOCYTES # (AUTO) 0.8 K/uL (0.8-1.0); NEUTROPHILS # (AUTO) 6.6 K/uL (1.8-7.7); NEUTROPHILS % (AUTO) 81.6 % (42.2-75.2); PLATELET COUNT (AUTO) 194 K/uL (140-450); RED BLOOD CELL COUNT(AUTO) 3.88 MIL/uL (4.20-5.40); RED CELL DISTRIBUTION WIDTH 13.8 % (11.6-13.7); WHITE BLOOD COUNT (AUTO) 8.1 K/uL (4.8-10.8)
[2020-09-19 05:59] LABS: APPEARANCE,URINE SL CLOUDY (CLEAR); BILIRUBIN,URINE NEGATIVE (NEGATIVE); BLOOD, URINE TRACE-I (NEGATIVE); COLOR,URINE YELLOW (YELLOW); LEUKOCYTE ESTERASE ,URINE NEGATIVE (NEGATIVE); NITRITE, URINE NEGATIVE (NEGATIVE); UGLUCOSE NEGATIVE (NEGATIVE)
[2020-09-19 06:14] LABS: RBC,URINE 0-5 /HPF (0-5); WBC,URINE 0-5 /HPF (0-5)
[2020-09-19 06:14] LABS: ALBUMIN 3.6 g/dL (3.4-5.0); ANION GAP 3.6 (8-16); CREATININE 0.6 mg/dL (0.6-1.3); POTASSIUM 3.8 mmol/L (3.5-5.1); TOTAL BILIRUBIN 0.5 mg/dL (0.0-1.0)
[2020-09-19 06:17] LABS: CARBON DIOXIDE 42.2 mmol/L (21-32)
[2020-09-19] MEDS ORDERED: MIRABULK PO (06:43)
--- NOTE | 2020-09-19 07:04 | NUR ---
CONTACTED SISTER PINO TATE, STATED SHE CAN NOT COME SUPERVISOR TESTING THE PATIENT AND HER CAREGIVER IS NOT WORKING TODAY. SHE STATES SHE HAD TO CALL [employer] LAST TIME SHE WAS HERE AND THAT SHE WILL FIND TRANSPORT FOR HER TODAY. PT REFUSING TO SIGN DISCHARGE PAPERWORK. SISTER MADE AWARE OF PT STATUS AND CARE TODAY.
--- NOTE | 2020-09-19 07:15 | NUR ---
REPORT GIVEN TO JEANETTE GRIFFIN
--- NOTE | 2020-09-19 07:20 | NUR ---
REPORT RECIEVED FROM GABY CASTANEDA. TRANSFER OF CARE AT THIS TIME.
--- NOTE | 2020-09-19 08:00 | NUR ---
CALLED [facility] SEVERAL TIMES TO FIND PT A RIDE HOME WITH O2 TANK, THEY DID NOT ANSWER. VM LEFT.
--- NOTE | 2020-09-19 08:57 | NUR ---
[facility] transportation request form faxed to obtain transporation for patient.
[2020-09-19 12:40] VITALS: BP 121/67
--- NOTE | 2020-09-19 12:40 | NUR ---
Patient discharged with v/s stable. Written and verbal after care instructions given and explained. Patient alert, oriented and verbalized understanding of instructions. Ambulance Transport to home. All questions addressed prior to discharge. ID band removed. Patient advised to follow up with PMD. Rx of MIRALAX given. Patient educated on indication of medication including possible reaction and side effects. Opportunity to ask questions provided and answered.
== END 2020-09-19 12:40 | disposition home or self-care (01) ==
LOC: MED 03:50
DX: J44.1 Chronic obstructive pulmonary disease with (acute) exacerbation (principal); I10 Essential (primary) hypertension; Z88.0 Allergy status to penicillin; Z88.2 Allergy status to sulfonamides; Z88.6 Allergy status to analgesic agent; Z88.8 Allergy status to other drugs, medicaments and biological substances
CPT/HCPCS: 36415; 71045; 80053; 81001; 85025; 99284; C1758